=== PATIENT | female | born 1945 | race Hispanic/Latino ===

== ENCOUNTER 2018-07-22 12:42 | Observation (INO) | payer OTHER ==
--- OUTSIDE RECORDS SUMMARY | 2018-07-22 12:44 | XMS REPORT ---
:1945 Author Organization [facility] Address [address] [place] [address] Care Team Providers Name Role Phone Unavailable Unavailable Unavailable Problems This patient has no known problems. Allergies, Adverse Reactions, Alerts This patient has no known allergies or adverse reactions. Medications This patient has no known medications.
[2018-07-22 13:37] LABS: Absolute Lymphocytes (CBC) 1.7 K/uL (0.7-4.9); Absolute Monocytes 0.4 K/uL (0.1-1.3); Absolute Neutrophil 4.8 K/uL (1.8-8.0); Basophils % 0.8 % (0-1.3); Eosinophils % 0.8 % (0-4.4); Hematocrit 37.3 % (36.0-45.0); MPV 8.4 fL (7.6-11.3); Monocytes % 5.7 % (3.3-12.3); RBC Red Blood Cell Count 4.27 M/uL (3.86-4.86)
[2018-07-22 13:43] LABS: ALT/SGPT 21 U/L (12-78); AST/SGOT 13 U/L (15-37); Albumin 3.7 g/dL (3.4-5.0); Alkaline Phosphatase 75 U/L (45-117); BUN Blood Urea Nitrogen 14 mg/dL (7-18); Bicarbonate 27 mmol/L (21-32); Bilirubin Direct 0.2 mg/dL (0-0.2); Bilirubin Total 0.8 mg/dL (0.2-1.0); Glucose Level 378 mg/dL (74-106); Magnesium 1.6 mg/dL (1.8-2.4); NT PRO-BNP 127 pg/mL (<125); Potassium 4.2 mmol/L (3.5-5.1); Protein, Total 7.2 g/dL (6.4-8.2); Sodium Level 135 mmol/L (136-145); Troponin (Emerg Dept Use Only) < 0.02 ng/mL (0.0-0.045)
--- NOTE | 2018-07-22 13:57 | RAD REPORT ---
EXAM DESCRIPTION: RAD - Chest Single View - 07/22/2018 1:39 pm CLINICAL HISTORY: Chest pain COMPARISON: April 2016 TECHNIQUE: AP portable chest image was obtained 1335 hours . FINDINGS: No focal lung parenchymal process. Interstitial markings are mildly prominent but stable. No failure or volume overload. Heart and vasculature are normal. No measurable pleural effusion and n o pneumothorax. No acute bony abnormality seen. No acute aortic findings suspected. IMPRESSION: No acute cardiopulmonary process. No significant change from comparison.
--- NOTE | 2018-07-22 15:05 | RAD REPORT ---
EXAM DESCRIPTION: CT - Chest For Pe Angio - 07/22/2018 2:35 pm CLINICAL HISTORY: Chest pain, shortness of breath COMPARISON: Chest films same date TECHNIQUE: Dynamically enhanced 3 mm thick images of the chest were obtained during administration o f approximately 150mL Isovue 370 IV contrast. Coronal and oblique MIP reconstruction images were gene rated and reviewed. Exam utilizes a protocol to evaluate the pulmonary arterial tree. All CT scans are performed using dose optimization technique as appropriate and may include automated exposure control or mA/KV adjustment according to patient size. FINDINGS: No pulmonary emboli are identified. The aorta as imaged shows no acute or suspicious finding. No pericardial thickening or effusion. No infiltrate or mass in the lung parenchyma. No pleural effusion or pleural thickening. No mediastinal or hilar suspicious masses. No chest wall masses or abnormal axillary lymphadenopathy. IMPRESSION: No pulmonary emboli identified. No other significant or suspicious findings.
[2018-07-22] MEDS ORDERED: ASPIRIN 81 MG CHEWABLE TABLET ONE (16:02)
--- NOTE | 2018-07-22 16:32 | EDPHYS ---
Physician Documentation [facility] Name: Allyssa Shelby Age: 73 yrs Sex: Female : 1945 Arrival Date: 07/22/2018 Time: 12:45 Bed 23 Private MD: Michael Rosales ED Physician Sampson Drake HPI: 07/22 13:05 This 73 yrs old Female presents to ER via Ambulatory with complaints of Chest jmm Pain > 30 y/o. 13:05 The patient or guardian reports chest pain that is located primarily in the anterior jmm aspect of right upper chest and mid-sternal area. Onset: gradually, 2 day(s) ago. The pain radiates to right back. Associated signs and symptoms: Pertinent positives: cough, Pertinent negatives:. The chest pain is described as aching. This is a 73 year old female with a history of dm, hlp, htn that presents to the ED with complaints of right sided chest pain beginning last week which would wax and wane. Patient states the pain has been constant over the past two days. Pain will radiate to the back and the midsternal region. Denies fever or productive cough. . Historical: - Allergies: 12:50 No Known Drug Allergies; tw2 - Home Meds: 12:50 lisinopril 20 mg Oral tab 1 tab once daily [Active]; Humulin 70/30 100 unit/mL (70-30) tw2 Sub-Q susp 40 units per day [Active]; metformin 500 mg Oral tab 1 tab 2 times per day [Active]; aspirin 81 mg Oral chew 1 tab once daily [Active]; - PMHx: 12:50 Diabetes - IDDM; Hyperlipidemia; Hypertension; tw2 - Immunization history:: Adult Immunizations. - Social history:: Smoking status: Patient/guardian denies using tobacco. - Ebola Screening: : Patient denies travel to an Ebola-affected area in the 21 days before illness onset. ROS: 13:05 Constitutional: Negative for fever, chills, and weight loss. jmm 13:05 Respiratory: Negative for shortness of breath, cough, wheezing, and pleuritic chest pain, Abdomen/GI: Negative for abdominal pain, nausea, vomiting, diarrhea, and constipation. 13:05 Cardiovascular: Positive for chest pain. 13:05 All other systems are negative. Exam: 13:05 Constitutional: This is a well developed, well nourished patient who is awake, alert, jmm and in no acute distress. Head/Face: atraumatic. Eyes: EOMI, no conjunctival erythema appreciated ENT: Moist Mucus Membranes Neck: Trachea midline, Supple 13:05 Respiratory: Normal respirations, no respiratory distress appreciated Abdomen/GI: Non distended, soft Back: Normal ROM Skin: General appearance color normal MS/ Extremity: Moves all extremities, no obvious deformities appreciated, no edema noted to the lower extremities Neuro: Awake and alert, normal gait Psych: Behavior is normal, Mood is normal, Patient is cooperative and pleasant 13:05 Chest/axilla: Inspection: normal, Palpation: is normal. 13:05 Cardiovascular: Rate: normal, Rhythm: regular. 13:05 Respiratory: the patient does not display signs of respiratory distress, Respirations: normal, Breath sounds: are clear throughout. Vital Signs: 12:49 BP 133 / 60; Pulse 89; Resp 17; Temp 97.4(TE); Pulse Ox 99% on R/A; Weight 78.93 kg tw2 (R); Height 5 ft. 2 in. (157.48 cm); Pain 6/10; 13:30 BP 136 / 62; Pulse 87; Resp 18; Pulse Ox 100% on R/A; ca1 14:20 BP 139 / 71; Pulse 82; Resp 19; Pulse Ox 100% on R/A; ca1 15:21 BP 147 / 80; Pulse 74; Resp 20; Pulse Ox 100% on R/A; ca1 16:38 BP 161 / 79; Pulse 73; Resp 19; Temp 98.6; Pulse Ox 100% ; lt1 17:42 BP 152 / 69; Pulse 73; Resp 17; Temp 98.5; Pulse Ox 100% ; lt1 18:08 BP 159 / 72; Pulse 70; Resp 18; Pulse Ox 100% on R/A; ca1 12:49 Body Mass Index 31.82 (78.93 kg, 157.48 cm) tw2 MDM: 13:04 Patient medically screened. jmm 16:29 Differential diagnosis: acute myocardial infarction, coronary artery disease chest wall jmm pain, stable angina. The patient was given aspirin in the Emergency Department. Data reviewed: vital signs, lab test result(s), EKG, radiologic studies, CT scan, plain films. Data interpreted: Pulse oximetry: on room air is 100 %. Interpretation: normal. Test interpretation: by ED physician or midlevel provider: ECG. ED course: I discussed the patient with Dr. Goncalves whom accepted admission. . 07/22 12:58 Order name: Basic Metabolic Panel; Complete Time: 13:46 [facility] 07/22 12:58 Order name: CBC with Diff; Complete Time: 14:07 [facility] 07/22 12:58 Order name: LFT's; Complete Time: 13:46 [facility] 07/22 12:58 Order name: Magnesium; Complete Time: 13:46 [facility] 07/22 12:58 Order name: NT PRO-BNP; Complete Time: 13:46 [facility] 07/22 12:58 Order name: PT-INR; Complete Time: 14:07 [facility] 07/22 12:58 Order name: Troponin (emerg Dept Use Only); Complete Time: 13:46 [facility] 07/22 12:58 Order name: XRAY Chest (1 view); Complete Time: 14:07 [facility] 07/22 12:58 Order name: EKG; Complete Time: 12:59 [facility] 07/22 14:16 Order name: Chest For PE Angio CT; Complete Time: 15:29 [facility] 07/22 15:04 Order name: Troponin (emerg Dept Use Only); Complete Time: 15:44 ca1 07/22 17:20 Order name: Echo with Doppler EDVT 07/22 12:58 Order name: Cardiac monitoring; Complete Time: 13:12 [facility] 07/22 12:58 Order name: EKG - Nurse/Tech; Complete Time: 13:12 [facility] 07/22 12:58 Order name: IV Saline Lock; Complete Time: 13:12 [facility] 07/22 12:58 Order name: Labs collected and sent; Complete Time: 13:12 07/22 12:58 Order name: O2 Per Protocol; Complete Time: 13:12 07/22 12:58 Order name: O2 Sat Monitoring; Complete Time: 13:12 [facility] 07/22 16:50 Order name: EKG Electrocardiogram EDMS Administered Medications: 15:50 Drug: Aspirin Chewable Tablet 324 mg Route: PO; ca1 18:09 Follow up: Response: No adverse reaction ca1 16:35 Drug: Magnesium Sulfate 1 grams Route: IVPB; Infused Over: 1 hrs; Site: right ca1 antecubital; 18:09 Follow up: Response: No adverse reaction; IV Status: Completed infusion ca1 Disposition: 07/23 06:55 Co-signature as Attending Physician, Sampson Drake MD I agree with the assessment and kdr plan of care. Disposition: 07/22/18 16:30 Hospitalization ordered by Jelly Goncalves for Observation. Preliminary diagnosis is Chest pain, unspecified. - Bed requested for Telemetry/MedSurg (observation). - Status is Observation. ca1 - Condition is Stable. - Problem is new. - Symptoms have improved. UTI on Admission? No Signatures: Dispatcher [employer] Suzanne Rivera RN RN dw Sampson Drake MD MD kdr Javy Rdz PA PA jmm Wise, Tara RN RN tw2 Ayse Martinez RN RN ca1 Corrections: (The following items were deleted from the chart) 07/22 17:42 16:30 Hospitalization Ordered by Jelly Goncalves MD for Observation. Preliminary dw diagnosis is Chest pain, unspecified. Bed requested for Telemetry/MedSurg (observation). Status is Observation. Condition is Stable. Problem is new. Symptoms have improved. UTI on Admission? No. [facility] 18:24 17:42 07/22/2018 16:30 Hospitalization Ordered by Jelly Goncalves MD for Observation. ca1 Preliminary diagnosis is Chest pain, unspecified. Bed requested for Telemetry/MedSurg (observation). Status is Observation. Condition is Stable. Problem is new. Symptoms have improved. UTI on Admission? No. dw
--- NOTE | 2018-07-22 16:32 | ER ---
Nurse's Notes [facility] Name: Allyssa Shelby Age: 73 yrs Sex: Female : 1945 Arrival Date: 07/22/2018 Time: 12:45 Bed 23 Private MD: Michael Rosales Diagnosis: Chest pain, unspecified Presentation: 07/22 12:48 Presenting complaint: Patient states: i have been getting chest pain and my RIGHT arm tw2 hurts, i when i turn my neck to the left it hurts and i feel a little short of breath. Transition of care: patient was not received from another setting of care. Onset of symptoms was July 22, 2018. Risk Assessment: Do you want to hurt yourself or someone else? Patient reports no desire to harm self or others. Initial Sepsis Screen: Does the patient meet any 2 criteria? No. Patient's initial sepsis screen is negative. Does the patient have a suspected source of infection? No. Patient's initial sepsis screen is negative. Care prior to arrival: None. 12:48 Method Of Arrival: Ambulatory tw2 12:48 Acuity: JANICE 3 tw2 Triage Assessment: 12:50 General: Appears in no apparent distress. well groomed, Behavior is calm, cooperative, tw2 appropriate for age. Pain: Complains of pain in chest. Cardiovascular: Reports chest pain, shortness of breath, since "for a couple of days now". Historical: - Allergies: 12:50 No Known Drug Allergies; tw2 - Home Meds: 12:50 lisinopril 20 mg Oral tab 1 tab once daily [Active]; Humulin 70/30 100 unit/mL (70-30) tw2 Sub-Q susp 40 units per day [Active]; metformin 500 mg Oral tab 1 tab 2 times per day [Active]; aspirin 81 mg Oral chew 1 tab once daily [Active]; - PMHx: 12:50 Diabetes - IDDM; Hyperlipidemia; Hypertension; tw2 - Immunization history:: Adult Immunizations. - Social history:: Smoking status: Patient/guardian denies using tobacco. - Ebola Screening: : Patient denies travel to an Ebola-affected area in the 21 days before illness onset. Screenin:00 Abuse screen: Denies threats or abuse. Denies injuries from another. Nutritional ca1 screening: No deficits noted. Tuberculosis screening: No symptoms or risk factors identified. Fall Risk None identified. Assessment: 13:00 General: Appears in no apparent distress. comfortable, Behavior is calm, cooperative, ca1 appropriate for age. Pain: Complains of pain in mid-sternal area and anterior aspect of right upper chest and chest Pain radiates to Right arm Pain currently is 6 out of 10 on a pain scale. Quality of pain is described as sharp, Pain began about a week. Is intermittent. Neuro: Level of Consciousness is awake, alert, obeys commands, Oriented to person, place, time, situation. Cardiovascular: Heart tones S1 S2 Capillary refill < 3 seconds Patient's skin is warm and dry. Rhythm is sinus rhythm. Respiratory: Airway is patent Respiratory effort is even, unlabored, Respiratory pattern is regular, symmetrical, Breath sounds are clear bilaterally. GI: Abdomen is flat, non-distended, Bowel sounds present X 4 quads. Abd is soft and non tender X 4 quads. Patient currently denies nausea, vomiting. : No signs and/or symptoms were reported regarding the genitourinary system. EENT: No signs and/or symptoms were reported regarding the EENT system. Derm: Skin is intact, Skin is pink, warm \\T\\ dry. Musculoskeletal: Circulation, motion, and sensation intact. 14:00 Reassessment: Patient appears in no apparent distress at this time. Patient and/or ca1 family updated on plan of care and expected duration. Pain level reassessed. Patient is alert, oriented x 3, equal unlabored respirations, skin warm/dry/pink. 15:00 Reassessment: Patient appears in no apparent distress at this time. Patient and/or ca1 family updated on plan of care and expected duration. Pain level reassessed. Patient is alert, oriented x 3, equal unlabored respirations, skin warm/dry/pink. Family at bedside. Repeat EKG done by tech at bedside, Repeat Trop drawn and sent to lab. 16:00 Reassessment: Patient appears in no apparent distress at this time. Patient and/or ca1 family updated on plan of care and expected duration. Pain level reassessed. Patient is alert, oriented x 3, equal unlabored respirations, skin warm/dry/pink. 17:00 Reassessment: Patient appears in no apparent distress at this time. Patient and/or ca1 family updated on plan of care and expected duration. Pain level reassessed. Patient is alert, oriented x 3, equal unlabored respirations, skin warm/dry/pink. 18:08 Reassessment: Patient appears in no apparent distress at this time. Patient and/or ca1 family updated on plan of care and expected duration. Pain level reassessed. Patient is alert, oriented x 3, equal unlabored respirations, skin warm/dry/pink. Vital Signs: 12:49 BP 133 / 60; Pulse 89; Resp 17; Temp 97.4(TE); Pulse Ox 99% on R/A; Weight 78.93 kg tw2 (R); Height 5 ft. 2 in. (157.48 cm); Pain 6/10; 13:30 BP 136 / 62; Pulse 87; Resp 18; Pulse Ox 100% on R/A; ca1 14:20 BP 139 / 71; Pulse 82; Resp 19; Pulse Ox 100% on R/A; ca1 15:21 BP 147 / 80; Pulse 74; Resp 20; Pulse Ox 100% on R/A; ca1 16:38 BP 161 / 79; Pulse 73; Resp 19; Temp 98.6; Pulse Ox 100% ; lt1 17:42 BP 152 / 69; Pulse 73; Resp 17; Temp 98.5; Pulse Ox 100% ; lt1 18:08 BP 159 / 72; Pulse 70; Resp 18; Pulse Ox 100% on R/A; ca1 12:49 Body Mass Index 31.82 (78.93 kg, 157.48 cm) tw2 ED Course: 12:45 Patient arrived in ED. sb2 12:46 Michael Rosales MD is Private Physician. sb2 12:49 Triage completed. tw2 12:51 Arm band placed on. EKG completed in triage. Results shown to MD. tw2 12:56 EKG done, by anesthesia technician. reviewed by Sampson Drake MD. sm3 12:57 [facility] 12:57 Sampson Drake MD is Attending Physician. [facility] 13:00 Ayse Martinez, RN is Primary Nurse. ca1 13:00 Patient has correct armband on for positive identification. Placed in gown. Bed in low ca1 position. Call light in reach. Side rails up X 1. transport tank technician on. Pulse ox on. NIBP on. Warm blanket given. 13:10 Inserted saline lock: 20 gauge in right antecubital area, using aseptic technique. ca1 Blood collected. 13:10 Patient maintains SpO2 saturation greater than 95% on room air. ca1 13:41 X-ray completed. Portable x-ray completed in exam room. Patient tolerated procedure sw well. 13:47 XRAY Chest (1 view) In Process Unspecified. EDMS 14:31 CT completed. Patient tolerated procedure well. Patient moved to CT via wheelchair. Patient moved back from CT. 14:37 Chest For PE Angio CT In Process Unspecified. EDMS 15:12 EKG done, by anesthesia technician. reviewed by Javy RIVERA Repeat EKG. at1 16:30 Jelly Goncalves MD is Hospitalizing Provider. [facility] 17:58 No provider procedures requiring assistance completed. Patient admitted, IV remains in ca1 place. Administered Medications: 15:50 Drug: Aspirin Chewable Tablet 324 mg Route: PO; ca1 18:09 Follow up: Response: No adverse reaction ca1 16:35 Drug: Magnesium Sulfate 1 grams Route: IVPB; Infused Over: 1 hrs; Site: right ca1 antecubital; 18:09 Follow up: Response: No adverse reaction; IV Status: Completed infusion ca1 Outcome: 16:30 Decision to Hospitalize by Provider. janice 18:07 Admitted to Med/surg accompanied by tech, via wheelchair, room 225, with chart, Report ca1 called to Nhung Tate RN 18:07 Condition: stable 18:07 Instructed on the need for admit. 18:24 Patient left the ED. ca1 Signatures: Dispatcher [employer] EDMS Javy Rdz PA PA jmm Jones, Susan sj Gonzales, Amanda, bushel worker EKG Tat1 Mariann Aponte Tara, RN RN tw2 Maranda Gross sb2 Caroline Chisholm sm3 Ayse Martinez, RN RN ca1 Katie Godwin lt1 Corrections: (The following items were deleted from the chart) 13:21 01:00 General: Appears in no apparent distress. comfortable, Behavior is calm, ca1 cooperative, appropriate for age, ca1 13:21 01:00 Pain: Complains of pain in mid-sternal area and anterior aspect of right upper ca1 chest and chest Pain radiates to Right arm Pain currently is 6 out of 10 on a pain scale. Quality of pain is described as sharp, Pain began about a week. Is intermittent, ca1 Neuro: Level of Consciousness is awake, alert, obeys commands, Oriented to ca1 person, place, time, situation, ca1 Cardiovascular: Heart tones S1 S2 Capillary refill < 3 seconds Patient's skin is ca1 warm and dry. Rhythm is sinus rhythm ca1 Respiratory: Airway is patent Respiratory effort is even, unlabored, Respiratory ca1 pattern is regular, symmetrical, Breath sounds are clear bilaterally. ca1 GI: Abdomen is flat, non-distended, Bowel sounds present X 4 quads. Abd is soft ca1 and non tender X 4 quads. Patient currently denies nausea, vomiting, ca1 : No signs and/or symptoms were reported regarding the genitourinary system. ca1ca1 13: EENT: No signs and/or symptoms were reported regarding the EENT system. ca1 ca1 : Derm: Skin is intact, Skin is pink, warm \\T\\ dry. ca1 ca1 13: Musculoskeletal: Circulation, motion, and sensation intact. ca1 ca1 13: Abuse screen: Denies threats or abuse. Denies injuries from another. ca1 ca1 Nutritional screening: No deficits noted. ca1 ca1 13: Tuberculosis screening: No symptoms or risk factors identified. ca1 ca1 13: Fall Risk None identified. ca1 ca1 : Patient has correct armband on for positive identification. Placed in gown. Bed ca1 in low position. Call light in reach. Side rails up X 1. ca1 transport tank technician on. Pulse ox on. NIBP on. ca1 ca1 : Warm blanket given. [place] [id number]
--- NOTE | 2018-07-22 16:55 | EKG ---
Test Date: 2018-07-22 Test Time: 15:02:12 Marine Driller: MAXX MEASUREMENT RESULTS: Intervals: Rate: 70 TN: 150 QRSD: 80 QT: 412 QTc: 444 [place]: P: 33 TN: 150 QRS: -13 T: 0 INTERPRETIVE STATEMENTS: Normal sinus rhythm Minimal voltage criteria for LVH, may be normal variant Possible Anterior infarct, age undetermined Abnormal ECG Compared to ECG 07/22/2018 12:52:48 Atrial flutter no longer present Myocardial infarct finding still present Electronically Signed On 07-22-18 16:54:42 MILITARY PAY CLERK by Jose R Nava
--- NOTE | 2018-07-22 16:57 | EKG ---
Test Date: 2018-07-22 Test Time: 12:52:48 Division Chief: OCHOA MEASUREMENT RESULTS: Intervals: Rate: 86 HI: QRSD: 74 QT: 372 QTc: 445 [place]: P: 33 HI: QRS: -25 T: 0 INTERPRETIVE STATEMENTS: Sinus rhythm Minimal voltage criteria for LVH, may be normal variant Anterolateral infarct, age undetermined Abnormal ECG Compared to ECG 04/10/2016 16:38:54 Myocardial infarct finding now present Electronically Signed On 07-22-18 16:57:04 RN BURN by Jose R Nava
[2018-07-22] MEDS ORDERED: MAGNESIUM SULFATE 1 gm IVPB 1 GM/100 ML BAG IV ONE (17:05)
[2018-07-22] MEDS ORDERED: ACETAMINOPHEN 500 MG TAB PO PRN (18:46)
[2018-07-22] MEDS ORDERED: ONDANSETRON 4 MG/2 ML VIAL IV PRN (18:46)
[2018-07-22] MEDS ORDERED: GLUCAGON 1 MG/VIAL IM PRN (18:58)
[2018-07-22] MEDS ORDERED: D50W 25 GM/50 ML SYRINGE IV PRN (18:58)
[2018-07-22 20:56] VITALS: O2SAT 100
[2018-07-22] MEDS: INSULIN -REGULAR HUMAN 50 UNIT/0.5 ML ML SQ SCH (21:00)
[2018-07-22] MEDS ORDERED: ATORVASTATIN 20 MG TAB PO SCH (21:00)
[2018-07-22] MEDS: ENOXAPARIN 40 MG/0.4 ML SQ SCH (21:08)
[2018-07-22 23:49] VITALS: BMI 31.8
[2018-07-23 05:19] LABS: Absolute Lymphocytes (CBC) 2.5 K/uL (0.7-4.9); Absolute Monocytes 0.5 K/uL (0.1-1.3); Absolute Neutrophil 4.2 K/uL (1.8-8.0); Eosinophils % 1.5 % (0-4.4); Hematocrit 36.8 % (36.0-45.0); MPV 8.6 fL (7.6-11.3); Monocytes % 7.1 % (3.3-12.3); RBC Red Blood Cell Count 4.24 M/uL (3.86-4.86)
[2018-07-23 05:41] LABS: ALT/SGPT 21 U/L (12-78); AST/SGOT 12 U/L (15-37); Albumin 3.5 g/dL (3.4-5.0); Alkaline Phosphatase 74 U/L (45-117); BUN Blood Urea Nitrogen 10 mg/dL (7-18); Bicarbonate 29 mmol/L (21-32); Bilirubin Total 0.6 mg/dL (0.2-1.0); Glucose Level 268 mg/dL (74-106); Phosphorus 2.8 mg/dL (2.5-4.9); Potassium 3.5 mmol/L (3.5-5.1); Protein, Total 6.7 g/dL (6.4-8.2); Sodium Level 138 mmol/L (136-145)
[2018-07-23] MEDS ORDERED: METOPROLOL XL 25 MG TAB PO SCH (06:00)
[2018-07-23 08:28] LABS: Urine Appearance CLEAR; Urine Bilirubin NEGATIVE (NEG); Urine Blood NEGATIVE (NEG); Urine Color YELLOW; Urine Glucose 3+ (NEG); Urine Microscopic Reflex NO UMIC; Urine Protein NEGATIVE (NEG); Urine Specific Gravity >=1.030 (1.005-1.030); Urine Urobilinogen 0.2 mg/dL (0.2-1.0); Urine pH 5.5 (5.0-7.0)
[2018-07-23] MEDS: INSULIN -REGULAR HUMAN 50 UNIT/0.5 ML ML SQ SCH ×3 (08:28→17:22)
[2018-07-23] MEDS: ENOXAPARIN 40 MG/0.4 ML SQ SCH (08:29)
[2018-07-23] MEDS ORDERED: ASPIRIN EC 81 MG TAB PO SCH (09:00)
[2018-07-23] MEDS ORDERED: REGADENOSON 0.4 MG/5 ML SYR IV ONE (09:58)
--- NOTE | 2018-07-23 12:35 | RAD REPORT ---
EXAM DESCRIPTION: NM - Rest Stress Cardiac Imaging - 07/23/2018 11:51 am CLINICAL HISTORY: Chest pain COMPARISON: None. TECHNIQUE: The patient was administered approximately 10 mCi of Tc 99m Sestamibi prior to resting SP ECT imaging of the heart. The patient was then administered approximately 30 mCi of Tc 99m Sestamibi following exercise or pharmacologic stress. Multiplanar SPECT images were reviewed. FINDINGS: The end diastolic volume is 72 ml, the end systolic volume is 34 ml, and the ejection frac tion is 53 %. No stress-induced ischemia identified. No scarred parenchyma suspected. A very minimal decrease in ac tivity is seen along the inferolateral wall unchanged between rest and stress imaging. This is favore d to be diaphragm attenuation artifact. IMPRESSION: No stress-induced ischemia and no scarring confirmed. Ventricular volumes and ejection fraction are normal range.
--- NOTE | 2018-07-23 16:37 | TREADPHA ---
DX: CHEST PAIN Date of Study: 07/23/2018 Ht: 5 2 Wt: 174 lb 0 oz Consulting Physician: MARIA MEDICATIONS: TYLENOL, ASPIRIN, DECTROSE, LOVENOX, NOVOLIN-R, TROPROL XL, LIPITOR, ZOFRAN. HISTORY: 73 YEAR FEMALE. COMPLAINTS OF CHEST PAIN. HISTORY: DIABETES MELLITUS, HYPERTENSION, HYPERLIPIDEMIA, NON-SMOKER, NON-DRINKER. PHYSICIAL EXAMINATION: RESTING B.P.: 149/81 RESTING H.R.: 71 RESTING EKG: SINUS RHYTHM, OLD INFERIOR MYOCARDIAL INFARCTION. PROTOCOL: LEXISCAN EXERCISE TIME: 3:30 B.P. AT [place]AK STRESS: 133/70 IMPRESSION: LEXISCAN INJECTED, FOLLOWED BY CARDIOLITE PER PROTOCOL, SEE NUCLEAR MEDICINE REPORT. NO SUPRAVENTRIULCAR TACHYCARDIA. NO VENTRICULAR TACHYCARDIA. NO PREMATURE ATRIAL COMPLEXS. NO PREMATURE VENTRICULAR COMPLEXS. PATIENT REPORTED NO CHEST PAIN, OR TIGHTNESS THROUGHOUT PROCEDURE, OR IN RECOVERY.
--- NOTE | 2018-07-23 16:49 | ECHO ---
HEIGHT: 5 ft 2 in WEIGHT: 174 lb 0 oz DATE OF STUDY: 07/23/[address]: Jelly Goncalves MD 2-DIMENSIONAL: YES M.MODE: YES DOPPLER: YES COLOR FLOW: YES TDS: PORTABLE: DEFINITY: BUBBLE STUDY: DIAGNOSIS: CHEST PAIN CARDIAC HISTORY: CATHERIZATION: NO SURGERY: NO PROSTHETIC VALVE: NO PACEMAKER: NO MEASUREMENTS (cm) DIASTOLIC (NORMALS) SYSTOLIC (NORMALS) IVSd 1.0 (0.6-1.2) LA Diam 4.1 (1.9-4.0) LVEF 53% LVIDd 4.4 (3.5-5.7) LVIDs 3.2 (2.0-3.5) %FS 27% LVPWd 1.1 (0.6-1.2) Ao Diam 2.6 (2.0-3.7) 2 DIMENSIONAL ASSESSMENT: RIGHT ATRIUM: NORMAL LEFT ATRIUM: DILATED RIGHT VENTRICLE: NORMAL LEFT VENTRICLE: NORMAL TRICUSPID VALVE: NORMAL MITRAL VALVE: MITRAL ANNULAR CALCIFICATION PULMONIC VALVE: NORMAL AORTIC VALVE: NORMAL PERICARDIAL EFFUSION: NONE AORTIC ROOT: NORMAL LEFT VENTRICULAR WALL MOTION: NORMAL DOPPLER/COLOR FLOW: NORMAL COMMENTS: NORMAL LEFT VENTRICULAR SIZE AND FUNCTION. MITRAL ANNULAR CALCIFICATION. LEFT ATRIUM ENLARGEMENT. NO WALL MOTION ABNORMALITY. TECHNOLOGIST: SAMMI DIEHL.
[2018-07-23 17:08] VITALS: BP 142/70; TEMP 97.2
--- NOTE | 2018-07-23 18:25 | P.HP ---
Certification for Inpatient Patient admitted to: Observation With expected LOS: <2 Midnights Patient will require the following post-hospital care: None Practitioner: I am a practitioner with admitting privileges, knowledge of patient current condition, hospital course, and medical plan of care. Services: Services provided to patient in accordance with Admission requirements found in Title 42 Section 412.3 of the Code of Federal Regulations Patient History Date of Service: 07/22/18 Reason for admission: chest pain rule out acute coronary syndrome History of Present Illness: Patient is a 73-year-old female who came to the hospital with chest pain. Pain was mainly the sternal region. There was no radiation. Patient also was short of breath. Patient's workup in the ER was negative with negative troponins and EKG. Patient was admitted from the ER for further evaluation. Allergies No Known Drug Allergies Allergy (Verified 07/22/18 23:50) Unknown Home Medications: Hum Insulin NPH/Reg Insulin Hm [Humulin 70-30 Vial] 40 unit SQ BEDTIME 11/04/11 Hum Insulin NPH/Reg Insulin Hm [Humulin 70-30 Vial] 40 unit SQ INSAM 11/04/11 Lisinopril [Prinivil] 10 mg PO DAILY 11/04/11 Metformin ER [Glucophage ER*] 500 mg PO BID 04/10/16 Clopidogrel Bisulfate [Plavix*] 75 mg PO DAILY #30 tablet 04/12/16 Magnesium Oxide [Mag 0X*] 400 mg PO BID #60 tab 04/12/16 Potassium Chloride [K-Dur] 20 meq PO DAILY #30 tab.er.prt 04/12/16 - Past Medical/Surgical History Has patient received pneumonia vaccine in the past: No Diabetic: Yes -: HTN -: IDDM -: CVA 2009 -: Cholecystectomy -: Hysterectomy -: Back SX 1989 - Family History Brother Medical History: Hypertension - Social History Smoking Status: Never smoker Alcohol use: No CD- Drugs: No Caffeine use: No Place of Residence: Home Review of Systems 10-point ROS is otherwise unremarkable Physical Examination - Vital Signs Temperature: 97.2 F Blood Pressure: 142/70 Pulse: 113 Respirations: 18 Pulse Ox (%): 98 - Physical Exam General: Alert, In no apparent distress, Oriented x3 HEENT: Atraumatic, PERRLA, Mucous membr. moist/pink, EOMI, Sclerae nonicteric Neck: Supple, 2+ carotid pulse no bruit, No LAD, Without JVD or thyroid abnormality Respiratory: Clear to auscultation bilaterally, Normal air movement Cardiovascular: Regular rate/rhythm, Normal S1 S2 Gastrointestinal: Normal bowel sounds, Soft and benign, Non-distended, No tenderness Musculoskeletal: No clubbing, No swelling, No tenderness Integumentary: No rashes Neurological: Normal gait, Normal speech, Normal strength at 5/5 x4 extr, Normal tone, Sensation intact, Cranial nerves 3-12 intact, Normal affect Lymphatics: No axilla or inguinal lymphadenopathy Assessment & Plan - Problems (Diagnosis) (1) Chest pain Current Visit: Yes Status: Acute (2) Essential hypertension Current Visit: No Status: Chronic (3) Type 2 diabetes mellitus Current Visit: No Status: Chronic Qualifiers: Diabetes mellitus half-way insulin use: with tank terminal gauger use Diabetes mellitus complication status: without complication Qualified Code(s): E11.9 - Type 2 diabetes mellitus without complications; Z79.4 - alf (current) use of insulin - Plan 1. Serial troponins and EKG 2. Cardiology consultation 3. Echocardiogram and inpatient stress test(pending cardiology evaluation) 4. Anti-platelet therapy, anti coagulation, beta-truman, statin, and O2 as needed 5. IV morphine for pain 6. Nitro p.r.n. - Advance Directives Does patient have a Living Will: No Does patient have a Durable POA for Healthcare: No
--- NOTE | 2018-07-23 18:34 | P.DS ---
Discharge Date: 07/23/18 Disposition: ROUTINE DISCHARGE Discharge Condition: GOOD Reason for Admission: chest pain rule out acute coronary syndrome - Problems (1) Chest pain Current Visit: Yes Status: Acute (2) Essential hypertension Current Visit: No Status: Chronic (3) Type 2 diabetes mellitus Current Visit: No Status: Chronic Qualifiers: Diabetes mellitus lobsterman insulin use: with lobsterman use Diabetes mellitus complication status: without complication Qualified Code(s): E11.9 - Type 2 diabetes mellitus without complications; Z79.4 - halfway (current) use of insulin Brief History of Present Illness: Patient is a 73-year-old female who came to the hospital with chest pain. Pain was mainly the sternal region. There was no radiation. Patient also was short of breath. Patient's workup in the ER was negative with negative troponins and EKG. Patient was admitted from the ER for further evaluation. Hospital Course: Patient did well during hospital stay. Patient's stress test was negative. Echocardiogram without any abnormality. Patient is stable for discharge home at this time. Vital Signs/Physical Exam: Temp Pulse Resp BP Pulse Ox 97.2 F 113 H 18 142/70 H 98 07/23/18 18:27 07/23/18 18:27 07/23/18 18:27 07/23/18 18:27 07/23/18 18:27 General: Alert, In no apparent distress, Oriented x3 Laboratory Data at Discharge: WBC 7.5 K/uL (4.3-10.9) 07/23/18 04:20 Hgb 12.4 g/dL (12.0-15.0) 07/23/18 04:20 Hct 36.8 % (36.0-45.0) 07/23/18 04:20 Plt Count 279 K/uL (152-406) 07/23/18 04:20 PT 11.8 SECONDS (9.5-12.5) 07/22/18 13:09 INR 1.00 07/22/18 13:09 Sodium 138 mmol/L (136-145) 07/23/18 04:20 Potassium 3.5 mmol/L (3.5-5.1) 07/23/18 04:20 BUN 10 mg/dL (7-18) 07/23/18 04:20 Creatinine 0.58 mg/dL (0.55-1.3) 07/23/18 04:20 Glucose 268 mg/dL (74-106) H 07/23/18 04:20 Phosphorus 2.8 mg/dL (2.5-4.9) 07/23/18 04:20 Magnesium 2.0 mg/dL (1.8-2.4) 07/23/18 04:20 Total Bilirubin 0.6 mg/dL (0.2-1.0) 07/23/18 04:20 AST 12 U/L (15-37) L 07/23/18 04:20 ALT 21 U/L (12-78) 07/23/18 04:20 Alkaline Phosphatase 74 U/L (45-117) 07/23/18 04:20 Troponin I < 0.02 ng/mL (0.0-0.045) 07/23/18 11:58 Home Medications: Hum Insulin NPH/Reg Insulin Hm [Humulin 70-30 Vial] 40 unit SQ BEDTIME 11/04/11 Hum Insulin NPH/Reg Insulin Hm [Humulin 70-30 Vial] 40 unit SQ INSAM 11/04/11 Lisinopril [Prinivil] 10 mg PO DAILY 11/04/11 Metformin ER [Glucophage ER*] 500 mg PO BID 04/10/16 Clopidogrel Bisulfate [Plavix*] 75 mg PO DAILY #30 tablet 04/12/16 Magnesium Oxide [Mag 0X*] 400 mg PO BID #60 tab 04/12/16 Potassium Chloride [K-Dur] 20 meq PO DAILY #30 tab.er.prt 04/12/16 Patient Discharge Instructions: OK TO DC IV AND DC HOME. FOLLOW-UP WITH PRIMARY CARE PROVIDER IN 1-2 WEEKS. FOLLOW-UP WITH CARDIOLOGY IN 1-2 WEEKS. RETURN TO THE ER IF symptoms worsen. CALL DR. MYERS AT [phone] IF ANY QUESTIONS REGARDING HOSPITAL STAY. PLEASE CALL THE FLOOR AT [phone] IF ANY MEDICATION OR NURSING QUESTIONS. Diet: ADA Activity: Fall precautions Time spent managing pt's care (in minutes): 15
== END 2018-07-23 19:51 | disposition home or self-care (01) ==
LOC: ER 12:42 → ERHOLD 17:19 → 2ND 18:07
PROVIDERS: ADMIT Hospitalist; ATTEND Hospitalist
DX: R07.9 Chest pain, unspecified (principal); I10 Essential (primary) hypertension; E11.9 Type 2 diabetes mellitus without complications; Z79.4 Long term (current) use of insulin; Z86.73 Personal history of transient ischemic attack (TIA), and cerebral infarction without residual deficits
CPT/HCPCS: 36415; 71045; 71275; 78452; 80048; 80053; 80076; 81003; 82962 ×4; 83735 ×2; 83880; 84100; 84484 ×5; 85025 ×2; 85610; 93005 ×2; 93017; 93306; 96365; 96366; 99285; A9500; G0378 ×2; J1650 ×2; J2785; J3475; Q9967

== ENCOUNTER 2018-08-09 17:00 | Emergency (ER) | payer OTHER ==
--- OUTSIDE RECORDS SUMMARY | 2018-08-09 17:02 | XMS REPORT ---
:1945 [facility] Address [address] [place] [address] Care Team Providers Name Role Phone Unavailable Unavailable Unavailable Problems This patient has no known problems. Allergies, Adverse Reactions, Alerts This patient has no known allergies or adverse reactions. Medications This patient has no known medications.
[2018-08-09] MEDS ORDERED: MORPHINE 2 MG/ML SYR ONE (17:52)
[2018-08-09 17:56] LABS: Absolute Monocytes 0.6 K/uL (0.1-1.3); Absolute Neutrophil 6.7 K/uL (1.8-8.0); Basophils % 0.8 % (0-1.3); Eosinophils % 0.6 % (0-4.4); Hematocrit 39.2 % (36.0-45.0); Lymphocytes % 21.3 % (15.3-44.8); MPV 8.1 fL (7.6-11.3); Monocytes % 6.2 % (3.3-12.3); RBC Red Blood Cell Count 4.52 M/uL (3.86-4.86)
[2018-08-09 18:05] LABS: Protime INR 0.97
--- NOTE | 2018-08-09 18:05 | RAD REPORT ---
EXAM DESCRIPTION: RAD - Chest Single View - 08/09/2018 5:59 pm CLINICAL HISTORY: CHEST PAIN Chest pain. COMPARISON: Chest Single View dated 07/22/2018; Chest Single View dated 04/10/2016; CHEST SINGLE VIEW dated 11/03/2011; CHEST SINGLE VIEW dated 03/15/2008 FINDINGS: Portable technique limits examination quality. The lungs are grossly clear. The heart is normal in size. No displaced fractures. IMPRESSION: No acute intrathoracic process suspected.
[2018-08-09 18:17] LABS: ALT/SGPT 22 U/L (12-78); AST/SGOT 16 U/L (15-37); Albumin 3.6 g/dL (3.4-5.0); Alkaline Phosphatase 81 U/L (45-117); BUN Blood Urea Nitrogen 9 mg/dL (7-18); Bicarbonate 25 mmol/L (21-32); Bilirubin Direct 0.2 mg/dL (0-0.2); Bilirubin Total 0.6 mg/dL (0.2-1.0); Glucose Level 198 mg/dL (74-106); Magnesium 1.8 mg/dL (1.8-2.4); NT PRO-BNP 198 pg/mL (<125); Potassium 3.9 mmol/L (3.5-5.1); Protein, Total 7.2 g/dL (6.4-8.2); Sodium Level 136 mmol/L (136-145); Troponin (Emerg Dept Use Only) < 0.02 ng/mL (0.0-0.045)
[2018-08-09] MEDS ORDERED: METOPROLOL TAR 25 MG TAB ONE (19:22)
[2018-08-09] MEDS ORDERED: ASPIRIN 81 MG CHEWABLE TABLET ONE (19:22)
--- NOTE | 2018-08-09 20:12 | P.CNS ---
Date of Consult: 08/09/18 Reason for Consult: chest pain Requesting Physician: Ranjeet Waller Primary Care Provider: Dr Rosales Chief Complaint: right shoulder pain History of Present Illness: Ms Shelby is a 73 years old woman with history of DM II, HTN who came to ED complaining of right shoulder pain. The pain started early this morning about 2 AM, comes and go, lasting for a few seconds, about 5/10 of intensity. The pain radiate to right side of the chest. She denied nausea, vomiting, dizziness or palpitations. She has had this recurrent pain in the past several times. At my encounter the patient was pain free, after receive morphine. The patient was admitted to the hospital for similar pain about 2 weeks ago. At that time she had an ECHO which was mostly normal, and a negative stress test. Current trop I is negative, EKG shows nonspecific repolarization changes. Allergies No Known Drug Allergies Allergy (Verified 07/22/18 23:50) Unknown Home medications list reviewed: Yes Home Medications: Hum Insulin NPH/Reg Insulin Hm [Humulin 70-30 Vial] 40 unit SQ BEDTIME 11/04/11 Hum Insulin NPH/Reg Insulin Hm [Humulin 70-30 Vial] 40 unit SQ INSAM 11/04/11 Lisinopril [Prinivil] 10 mg PO DAILY 11/04/11 Metformin ER [Glucophage ER*] 500 mg PO BID 04/10/16 Clopidogrel Bisulfate [Plavix*] 75 mg PO DAILY #30 tablet 04/12/16 Magnesium Oxide [Mag 0X*] 400 mg PO BID #60 tab 04/12/16 Potassium Chloride [K-Dur] 20 meq PO DAILY #30 tab.er.prt 04/12/16 - Past Medical/Surgical History Diabetic: Yes -: HTN -: IDDM -: CVA 2009 -: Cholecystectomy -: Hysterectomy -: Back SX 1989 - Family History Brother Medical History: Hypertension - Social History Smoking Status: Never smoker Alcohol use: No CD- Drugs: No Caffeine use: No Place of Residence: Home Review of Systems 10-point ROS is otherwise unremarkable Physical Examination General: Alert, In no apparent distress HEENT: Atraumatic, PERRLA, Mucous membr. moist/pink, EOMI, Sclerae nonicteric Neck: Supple, 2+ carotid pulse no bruit, No LAD, Without JVD or thyroid abnormality Respiratory: Clear to auscultation bilaterally, Normal air movement Cardiovascular: Regular rate/rhythm, Normal S1 S2 Gastrointestinal: Normal bowel sounds, No tenderness Musculoskeletal: Tenderness (tenderness in the right shoulder to movement.) Integumentary: No rashes Neurological: Normal gait, Normal speech, Normal tone, Normal affect Lymphatics: No axilla or inguinal lymphadenopathy Laboratory Data (last 24 hrs) 08/09/18 17:45: PT 11.5, INR 0.97 08/09/18 17:45: WBC 9.4, Hgb 13.1, Hct 39.2, Plt Count 323 08/09/18 17:45: Sodium 136, Potassium 3.9, BUN 9, Creatinine 0.59, Glucose 198 H , Magnesium 1.8, Total Bilirubin 0.6, AST 16, ALT 22, Alkaline Phosphatase 81 - Problems (1) Atypical chest pain Current Visit: Yes Status: Acute (2) Right shoulder pain Current Visit: Yes Status: Acute Qualifiers: Chronicity: chronic Qualified Code(s): M25.511 - Pain in right shoulder; G89.29 - Other chronic pain (3) Essential hypertension Current Visit: No Status: Chronic (4) Type 2 diabetes mellitus Current Visit: No Status: Chronic Qualifiers: Diabetes mellitus terminal carman insulin use: with terminal carman use Diabetes mellitus complication status: without complication Qualified Code(s): E11.9 - Type 2 diabetes mellitus without complications; Z79.4 - regional intermodal truck driver (current) use of insulin Conclusions/Impression: The patient is complaining of right shoulder pain. I was called to evaluate the patient for possible admission to rule out ACS. This is most likely musculoskeletal pain rather that cardiac related chest pain. The patient has negative cardiac work up done 2 weeks ago. At this point, I do not think that the patient will benefit from an admission. I think she can be discharge home safely and follow up with his PCP to investigate the etiology of her chronic right shoulder pain.
[2018-08-09] MEDS ORDERED: KETOROLAC 30 MG/ML INJ ONE (20:50)
--- NOTE | 2018-08-09 20:59 | ER ---
Nurse's Notes [facility] Name: Allyssa Shelby Age: 73 yrs Sex: Female : 1945 Arrival Date: 08/09/2018 Time: 17:03 Bed 6 Private MD: Michael Rosales Diagnosis: Pain in right shoulder;Other chest pain Presentation: 08/09 17:16 Presenting complaint: Patient states: chest pains radiating to R arm, started last ch night. denies sov, nvd, or cough. pt states her pcp is nighat, and her corporate director is a [place] vic in [place]. states he pain is persistant, at an 8. Transition of care: patient was not received from another setting of care. Onset of symptoms was August 08, 2018 at 17:00. Risk Assessment: Do you want to hurt yourself or someone else? Patient reports no desire to harm self or others. Initial Sepsis Screen: Does the patient meet any 2 criteria? No. Patient's initial sepsis screen is negative. Does the patient have a suspected source of infection? No. Patient's initial sepsis screen is negative. Care prior to arrival: None. 17:16 Method Of Arrival: Wheelchair 17:16 Acuity: JANICE 3 ch Triage Assessment: 17:19 General: Appears in no apparent distress. comfortable, Behavior is calm, cooperative, ch appropriate for age. Pain: Complains of pain in chest and right arm Pain currently is 8 out of 10 on a pain scale. Pain began gradually, 1 day ago. Pain: Quality of pain is described as pressure, sharp, shooting. Neuro: No deficits noted. Cardiovascular: Heart tones S1 S2 present Capillary refill < 3 seconds in bilateral fingers toes Clubbing of nail beds is absent Pulses are all present. Edema is absent. Respiratory: Airway is patent Trachea midline Respiratory effort is even, unlabored, Breath sounds are clear bilaterally. pt c/o pain with inhalation. GI: No signs and/or symptoms were reported involving the gastrointestinal system. : No signs and/or symptoms were reported regarding the genitourinary system. Derm: Skin is pink, warm \T\ dry. Musculoskeletal: No signs and/or symptoms reported regarding the musculoskeletal system. Circulation, motion, and sensation intact. Historical: - Allergies: 17:19 No Known Allergies; ch - Home Meds: 17:19 aspirin 81 mg Oral chew 1 tab once daily [Active]; Humulin 70/30 100 unit/mL (70-30) ch Sub-Q susp 40 units per day [Active]; lisinopril 20 mg Oral tab 1 tab once daily [Active]; metformin 500 mg Oral tab 1 tab 2 times per day [Active]; - PMHx: 17:19 Diabetes - IDDM; Hyperlipidemia; Hypertension; ch - Immunization history:: Adult Immunizations up to date. - Social history:: Smoking status: Patient/guardian denies using tobacco, Patient/guardian denies using alcohol, street drugs, Patient/guardian denies using The patient lives alone, with family. - Ebola Screening: : Patient negative for fever greater than or equal to 101.5 degrees Fahrenheit, and additional compatible Ebola Virus Disease symptoms Patient denies exposure to infectious person Patient denies travel to an Ebola-affected area in the 21 days before illness onset No symptoms or risks identified at this time. - Family history:: not pertinent. Screenin:23 Abuse screen: Denies threats or abuse. Denies injuries from another. Nutritional ch screening: No deficits noted. Tuberculosis screening: No symptoms or risk factors identified. Fall Risk None identified. Assessment: 17:23 Reassessment: Patient appears in no apparent distress at this time. Patient and/or ch family updated on plan of care and expected duration. Pain level reassessed. Patient is alert, oriented x 3, equal unlabored respirations, skin warm/dry/pink. 18:54 Reassessment: Patient appears in no apparent distress at this time. Patient and/or ch family updated on plan of care and expected duration. Pain level reassessed. Patient is alert, oriented x 3, equal unlabored respirations, skin warm/dry/pink. Patient denies pain at this time. Patient states feeling better. Patient states symptoms have improved. Pain: Pain does not radiate. 20:11 Reassessment: Patient appears in no apparent distress at this time. Patient and/or aa1 family updated on plan of care and expected duration. Pain level reassessed. Patient is alert, oriented x 3, equal unlabored respirations, skin warm/dry/pink. Awaiting repeat troponin for possible d/c. Pt resting comfortably, family at bedside Patient denies pain at this time. 21:09 Reassessment: Patient appears in no apparent distress at this time. Patient is alert, aa1 oriented x 3, equal unlabored respirations, skin warm/dry/pink. Discussed d/c \T\ f/u instructions with pt \T\ family; denies questions or concerns at this time. Amb to lobby with steady gait. Patient denies pain at this time. Vital Signs: 17:19 BP 172 / 73; Pulse 72; Resp 16; Temp 97.9; Pulse Ox 100% on R/A; Weight 78.93 kg; ch Height 5 ft. 2 in. (157.48 cm); Pain 8/10; 18:54 BP 165 / 66; Pulse 72; Resp 14; Temp 98.3; Pulse Ox 99% on R/A; Pain 2/10; ch 20:11 BP 177 / 75; Pulse 66; Resp 18; Pulse Ox 100% on R/A; Pain 0/10; aa1 21:09 BP 169 / 89; Pulse 61; Resp 18; Temp 98.1; Pulse Ox 99% on R/A; Pain 0/10; aa1 17:19 Body Mass Index 31.82 (78.93 kg, 157.48 cm) ED Course: 17:03 Patient arrived in ED. mr 17:03 Michael Rosales MD is Private Physician. mr 17:15 Caprice Lopes, RONEN is Primary Nurse. 17:16 Ranjeet Waller PA is PHCP. cp 17:16 Josh Puente MD is Attending Physician. cp 17:17 Triage completed. 17:17 EKG done, by medical laboratory technical officer. reviewed by Osvaldo Hunter MD. 3 17:19 Arm band placed on left wrist. Patient placed in an exam room, on a stretcher, on cardiac exercise specialist, on pulse oximetry. EKG completed in triage. Results shown to MD. 17:20 Inserted saline lock: 20 gauge in right forearm, using aseptic technique. Blood ch collected. Missed attempt(s): 20 gauge in right antecubital area. Bleeding controlled, band aid applied, catheter tip intact. 17:23 No apparent distress. Resting quietly. 17:23 No provider procedures requiring assistance completed. Patient maintains SpO2 saturation greater than 95% on room air. 17:23 Patient has correct armband on for positive identification. Placed in gown. Bed in low ch position. Call light in reach. Side rails up X 1. Adult w/ patient. transportation clerk on. Pulse ox on. NIBP on. Warm blanket given. 17:59 XRAY Chest (1 view) In Process Unspecified. EDMS 20:16 Repeat lab(s) drawn. by me, sent to lab. aa1 20:54 XRAY Shoulder RIGHT 2 view In Process Unspecified. EDMS 20:57 Michael Rosales MD is Referral Physician. cp 21:09 IV discontinued, intact, bleeding controlled, No redness/swelling at site. Pressure aa1 dressing applied. Administered Medications: 17:50 Drug: morphine 2 mg Route: IVP; Site: right forearm; ch 19:00 Follow up: Response: No adverse reaction; Pain is decreased aa1 19:13 Drug: Metoprolol 25 mg Route: PO; ss 20:58 Follow up: Response: No adverse reaction aa1 19:13 Drug: Aspirin Chewable Tablet 162 mg Route: PO; ss 20:58 Follow up: Response: No adverse reaction aa1 20:41 Drug: TORadol 15 mg Route: IVP; Site: right forearm; aa1 21:08 Follow up: Response: No adverse reaction; Pain is decreased aa1 21:09 Not Given (Patient Refused): Zofran 4 mg IVP once; over 2 minutes aa1 Outcome: 20:58 Discharge ordered by MD. cp 21:09 Discharged to home ambulatory, with family. aa1 21:09 Condition: good 21:09 Discharge instructions given to patient, family, Instructed on discharge instructions, follow up and referral plans. medication usage, Demonstrated understanding of instructions, follow-up care, medications, Prescriptions given X 2. 21:11 Patient left the ED. aa1 Signatures: Dispatcher [employer] EDMS Caprice Lopes RN RN [place] RN RN aa1 Joycelyn Contreras Shelby, RN RN ss Ranjeet Waller PA PA cp Alzahri, Mohammad, MD MD wa2 Caroline Chisholm 3
--- NOTE | 2018-08-09 20:59 | EDPHYS ---
Physician Documentation [facility] Name: Allyssa Shelby Age: 73 yrs Sex: Female : 1945 Arrival Date: 08/09/2018 Time: 17:03 Bed 6 Private MD: Michael Rosales ED Physician Josh Puente HPI: 08/09 17:22 This 73 yrs old Female presents to ER via Wheelchair with complaints of Chest ma2 Pain. 17:22 The patient or guardian reports chest pain that is located primarily in the substernal ma2 area. Onset: gradually, 3 day(s) ago. Associated signs and symptoms: Pertinent negatives: abdominal pain, diaphoresis, headache, nausea, shortness of breath, syncope. The chest pain is described as burning. Duration: The patient or guardian reports multiple episodes. Severity of pain: At its worst the pain was moderate in the emergency department the pain is unchanged. The patient has experienced similar episodes in the past. Historical: - Allergies: 17:19 No Known Allergies; ch - Home Meds: 17:19 aspirin 81 mg Oral chew 1 tab once daily [Active]; Humulin 70/30 100 unit/mL (70-30) ch Sub-Q susp 40 units per day [Active]; lisinopril 20 mg Oral tab 1 tab once daily [Active]; metformin 500 mg Oral tab 1 tab 2 times per day [Active]; - PMHx: 17:19 Diabetes - IDDM; Hyperlipidemia; Hypertension; ch - Immunization history:: Adult Immunizations up to date. - Social history:: Smoking status: Patient/guardian denies using tobacco, Patient/guardian denies using alcohol, street drugs, Patient/guardian denies using The patient lives alone, with family. - Ebola Screening: : Patient negative for fever greater than or equal to 101.5 degrees Fahrenheit, and additional compatible Ebola Virus Disease symptoms Patient denies exposure to infectious person Patient denies travel to an Ebola-affected area in the 21 days before illness onset No symptoms or risks identified at this time. - Family history:: not pertinent. ROS: 17:22 Constitutional: Negative for fever, chills, and weight loss. ma2 17:22 Cardiovascular: Positive for chest pain, Negative for orthopnea, paroxysmal nocturnal dyspnea. 17:22 All other systems are negative. Exam: 17:22 Constitutional: This is a well developed, well nourished patient who is awake, alert, ma2 and in no acute distress. Neck: Trachea midline, no thyromegaly or masses palpated, and no cervical lymphadenopathy. Supple, full range of motion without nuchal rigidity, or vertebral point tenderness. No Meningismus. Cardiovascular: Regular rate and rhythm with a normal S1 and S2. No gallops, murmurs, or rubs. Normal PMI, no JVD. No pulse deficits. Respiratory: Lungs have equal breath sounds bilaterally, clear to auscultation and percussion. No rales, rhonchi or wheezes noted. No increased work of breathing, no retractions or nasal flaring. 17:22 MS/ Extremity: Pulses equal, no cyanosis. Neurovascular intact. Full, normal range of motion. Neuro: Awake and alert, GCS 15, oriented to person, place, time, and situation. Cranial nerves II-XII grossly intact. Motor strength 5/5 in all extremities. Sensory grossly intact. Cerebellar exam normal. Normal gait. 17:22 Chest/axilla: Inspection: normal, Palpation: tenderness, that is moderate, of the anterior aspect of right upper chest and right breast, Axilla: are normal, Breasts: are normal. 17:25 ECG was reviewed by the Attending Physician. cp 17:25 Respiratory: the patient does not display signs of respiratory distress, Respirations: normal, no use of accessory muscles, no retractions, no splinting, no tachypnea, labored breathing, is not present, Breath sounds: are clear throughout, no decreased breath sounds, no stridor, no wheezing. 17:25 Abdomen/GI: Inspection: abdomen appears normal. cp 17:25 Skin: cellulitis, is not appreciated, no rash present. 20:30 ECG was reviewed by the Attending Physician. cp 20:45 Musculoskeletal/extremity: Extremities: grossly normal except: noted in the right cp shoulder: pain, tenderness, painful ROM, There is no evidence of decreased ROM, deformity, Perfusion: the extremity is normally perfused throughout, Sensation intact. Vital Signs: 17:19 BP 172 / 73; Pulse 72; Resp 16; Temp 97.9; Pulse Ox 100% on R/A; Weight 78.93 kg; ch Height 5 ft. 2 in. (157.48 cm); Pain 8/10; 18:54 BP 165 / 66; Pulse 72; Resp 14; Temp 98.3; Pulse Ox 99% on R/A; Pain 2/10; ch 20:11 BP 177 / 75; Pulse 66; Resp 18; Pulse Ox 100% on R/A; Pain 0/10; aa1 21:09 BP 169 / 89; Pulse 61; Resp 18; Temp 98.1; Pulse Ox 99% on R/A; Pain 0/10; aa1 17:19 Body Mass Index 31.82 (78.93 kg, 157.48 cm) MDM: 17:16 Patient medically screened. cp 17:22 Differential diagnosis: chest wall pain, gastroesophageal reflux disease (GERD), ma2 pericarditis, pneumonia, stable angina. 17:24 ED course: ekg 1 mm elevations on anterior leads no reciprocal . ma2 18:00 Differential diagnosis: acute VT, angina, bursitis of shoulder. cp 20:57 Data reviewed: vital signs, nurses notes, lab test result(s), EKG, radiologic studies, cp plain films. 20:57 Test interpretation: by ED physician or midlevel provider: plain radiologic studies. cp Counseling: I had a detailed discussion with the patient and/or guardian regarding: the historical points, exam findings, and any diagnostic results supporting the discharge/admit diagnosis, lab results, radiology results, the need for outpatient follow up, a family practitioner, to return to the emergency department if symptoms worsen or persist or if there are any questions or concerns that arise at home. Response to treatment: the patient's symptoms have markedly improved after treatment, and as a result, I will discharge patient. 08/09 17:39 Order name: Basic Metabolic Panel; Complete Time: 18:27 ss 08/09 18:27 Interpretation: Normal except: GLUC 198. cp 08/09 17:39 Order name: CBC with Diff; Complete Time: 18:27 ss 08/09 18:28 Interpretation: Reviewed. 08/09 17:39 Order name: LFT's; Complete Time: 18:27 ss 08/09 18:28 Interpretation: Normal except: GLOB 3.6; A/G 1.0. cp 08/09 17:39 Order name: Magnesium; Complete Time: 18:27 ss 08/09 17:39 Order name: NT PRO-BNP; Complete Time: 18:27 ss 08/09 17:39 Order name: PT-INR; Complete Time: 18:27 ss 08/09 17:39 Order name: Troponin (emerg Dept Use Only); Complete Time: 18:27 ss 08/09 17:39 Order name: XRAY Chest (1 view); Complete Time: 18:27 ss 08/09 18:28 Interpretation: Report review. cp 08/09 20:03 Order name: Troponin I; Complete Time: 20:44 cp 08/09 20:28 Order name: XRAY Shoulder RIGHT 2 view cp 08/09 17:39 Order name: EKG; Complete Time: 17:40 ss 08/09 17:39 Order name: Cardiac monitoring; Complete Time: 18:55 ss 08/09 17:39 Order name: EKG - Nurse/Tech; Complete Time: 18:56 ss 08/09 17:39 Order name: IV Saline Lock; Complete Time: 18:56 ss 08/09 17:39 Order name: Labs collected and sent; Complete Time: 18:56 ss 08/09 17:39 Order name: O2 Per Protocol; Complete Time: 18:56 ss 08/09 17:39 Order name: O2 Sat Monitoring; Complete Time: 18:56 ss 08/09 20:03 Order name: EKG; Complete Time: 20:03 cp 08/09 20:03 Order name: EKG - Nurse/Tech; Complete Time: 20:19 cp EC:52 Rate is 74 beats/min. Rhythm is regular. IN interval is normal. QRS interval is normal. cp QT interval is normal. Interpreted by me. Reviewed by me. 20:30 Rate is 64 beats/min. Rhythm is regular. IN interval is normal. QRS interval is normal. cp QT interval is normal. Interpreted by me. Reviewed by me. Administered Medications: 17:50 Drug: morphine 2 mg Route: IVP; Site: right forearm; ch 19:00 Follow up: Response: No adverse reaction; Pain is decreased aa1 19:13 Drug: Metoprolol 25 mg Route: PO; ss 20:58 Follow up: Response: No adverse reaction aa1 19:13 Drug: Aspirin Chewable Tablet 162 mg Route: PO; ss 20:58 Follow up: Response: No adverse reaction aa1 20:41 Drug: TORadol 15 mg Route: IVP; Site: right forearm; aa1 21:08 Follow up: Response: No adverse reaction; Pain is decreased aa1 21:09 Not Given (Patient Refused): Zofran 4 mg IVP once; over 2 minutes aa1 Disposition: 08/09/18 20:58 Discharged to Home. Impression: Pain in right shoulder, Other chest pain. - Condition is Stable. - Discharge Instructions: Nonspecific Chest Pain, Shoulder Pain, Aspirin and Your Heart. - Prescriptions for Mobic 7.5 mg Oral Tablet - take 1 tablet by ORAL route once daily take with food; 20 tablet. Tramadol 50 mg Oral Tablet - take 1 tablet by ORAL route every 8 hours as needed; 15 tablet. - Medication Reconciliation Form, Thank You Letter, Antibiotic Education, Prescription Opioid Use form. - Follow up: Michael Rosales MD; When: 2 - 3 days; Reason: Recheck today's complaints. - Problem is new. - Symptoms have improved. Signatures: Dispatcher [employer] EDMS Caprice Lopes RN RN [place] RN RN aa1 Sheyla Vital RN RN ss Ranjeet Waller PA PA cp Osvaldo Hunter MD MD ma2 Corrections: (The following items were deleted from the chart) 21:11 20:58 08/09/2018 20:58 Discharged to Home. Impression: Pain in right shoulder; Other aa1 chest pain. Condition is Stable. Forms are Medication Reconciliation Form, Thank You Letter, Antibiotic Education, Prescription Opioid Use. Follow up: Michael Rosales; When: 2 - 3 days; Reason: Recheck today's complaints. Problem is new. Symptoms have improved. cp
--- NOTE | 2018-08-09 21:03 | RAD REPORT ---
EXAM DESCRIPTION: RAD - Shoulder Right 2 View - 08/09/2018 8:54 pm CLINICAL HISTORY: PAIN COMPARISON: No comparisons FINDINGS: AC joint and glenohumeral joint arthritic changes are present. No acute fracture or disloc ation seen. No aggressive marrow lesion.
[2018-08-09 21:25] VITALS: BP 169/89; TEMP 98.1; O2SAT 99
--- NOTE | 2018-08-10 06:45 | EKG ---
Test Date: 2018-08-09 Test Time: 17:14:06 Television News Video Editor: OCHOA MEASUREMENT RESULTS: Intervals: Rate: 74 CO: 142 QRSD: 74 QT: 414 QTc: 459 [place]: P: 47 CO: 142 QRS: -20 T: 57 INTERPRETIVE STATEMENTS: Normal sinus rhythm Cannot rule out Anterior infarct, age undetermined Abnormal ECG Compared to ECG 07/22/2018 15:02:12 Left ventricular hypertrophy no longer present Myocardial infarct finding still present Electronically Signed On 08-10-18 06:45:18 ABRADING MACHINE TENDER by Jose R Nava
--- NOTE | 2018-08-10 10:31 | EKG ---
Test Date: 2018-08-09 Test Time: 20:23:44 Dietetics Director: JEFFRY MEASUREMENT RESULTS: Intervals: Rate: 64 NV: 158 QRSD: 80 QT: 436 QTc: 449 [place]: P: 20 NV: 158 QRS: -19 T: 29 INTERPRETIVE STATEMENTS: Normal sinus rhythm Possible Anterior infarct, age undetermined Abnormal ECG Compared to ECG 08/09/2018 17:14:06 No significant changes Electronically Signed On 08-10-18 10:29:25 MEDICAL APPOINTMENT CLERK by Sukhwinder Lamar
== END 2018-08-09 21:11 | disposition home or self-care (01) ==
LOC: ER 17:00
DX: R07.9 Chest pain, unspecified (principal); M25.511 Pain in right shoulder; E11.9 Type 2 diabetes mellitus without complications; Z79.82 Long term (current) use of aspirin; Z79.4 Long term (current) use of insulin
CPT/HCPCS: 93005 ×2; 85025; 80048; 36415; 83735; 85610; 80076; 84484 ×2; 83880; 71045; 73030; J2270

== ENCOUNTER 2018-08-23 15:17 | Observation (INO) | payer OTHER ==
--- OUTSIDE RECORDS SUMMARY | 2018-08-23 15:20 | XMS REPORT ---
:1945 [facility] Address [address] [place] [address] [address] [place] [address] Care Team Providers Name Role Phone Unavailable Unavailable Unavailable Problems This patient has no known problems. Allergies, Adverse Reactions, Alerts This patient has no known allergies or adverse reactions. Medications This patient has no known medications.
--- NOTE | 2018-08-23 16:08 | ER ---
Nurse's Notes [facility] Name: Allyssa Shelby Age: 73 yrs Sex: Female : 1945 Arrival Date: 08/23/2018 Time: 15:18 Bed 13 Private MD: Michael Rosales Diagnosis: Other chest pain;Pain in right upper arm;Type 1 diabetes mellitus;Hypomagnesemia;Radiculopathy, cervical region;Spondylolysis, cervical region Presentation: 08/23 15:28 Presenting complaint: Right sided chest pain that radiates to right arm and SOB x 2 hb days. Transition of care: patient was not received from another setting of care. Onset of symptoms was August 22, 2018. Risk Assessment: Do you want to hurt yourself or someone else? Patient reports no desire to harm self or others. Care prior to arrival: None. 15:28 Method Of Arrival: Ambulatory hb 15:28 Acuity: JANICE 3 hb Historical: - Allergies: 15:29 No Known Allergies; hb - Home Meds: 15:29 aspirin 81 mg Oral chew 1 tab once daily [Active]; Humulin 70/30 100 unit/mL (70-30) hb Sub-Q susp 40 units per day [Active]; lisinopril 20 mg Oral tab 1 tab once daily [Active]; metformin 500 mg Oral tab 1 tab 2 times per day [Active]; - PMHx: 15:29 Diabetes - IDDM; Hyperlipidemia; Hypertension; hb - Immunization history:: Adult Immunizations up to date. - Social history:: Smoking status: Patient/guardian denies using tobacco. - Ebola Screening: : No symptoms or risks identified at this time. - Family history:: not pertinent. Screenin:40 Abuse screen: Denies threats or abuse. Denies injuries from another. Nutritional sg screening: No deficits noted. Tuberculosis screening: No symptoms or risk factors identified. Never had TB. Fall Risk None identified. Assessment: 16:42 General: Appears in no apparent distress. comfortable, well groomed, well developed, sg well nourished, Behavior is calm, cooperative, appropriate for age. Pain: Complains of pain in chest and right arm Quality of pain is described as aching. Neuro: Level of Consciousness is awake, alert, obeys commands, Oriented to person, place, time, situation, Airport Clerk are equal bilaterally Moves all extremities. Gait is steady, Speech is normal, Facial symmetry appears normal, Pupils are PERRLA. Cardiovascular: Heart tones S1 S2 present Capillary refill is brisk in bilateral fingers Patient's skin is warm and dry. Chest pain quality is pressure, is located in anterior substernal area. Respiratory: Airway is patent Respiratory effort is even, unlabored, Respiratory pattern is regular, symmetrical. GI: Abdomen is round non-distended, Reports normal bowel habits, tolerance of fluids, tolerance of food. : No signs and/or symptoms were reported regarding the genitourinary system. Derm: Skin is normal. Musculoskeletal: No signs and/or symptoms reported regarding the musculoskeletal system. 17:50 Reassessment: Patient appears in no apparent distress at this time. Patient is alert, sg oriented x 3, equal unlabored respirations, skin warm/dry/pink. 18:50 Reassessment: Patient appears in no apparent distress at this time. Patient is alert, sg oriented x 3, equal unlabored respirations, skin warm/dry/pink. Patient states feeling better. Patient states symptoms have improved. 19:20 Reassessment: Patient appears in no apparent distress at this time. Patient and/or jb4 family updated on plan of care and expected duration. Pain level reassessed. Patient is alert, oriented x 3, equal unlabored respirations, skin warm/dry/pink. Patient states feeling better. Vital Signs: 15:28 BP 115 / 56; Pulse 78; Resp 16; Temp 98.8; Pulse Ox 100% on R/A; Pain 5/10; hb 17:46 BP 135 / 56; Pulse 77; Resp 17; Pulse Ox 100% on R/A; Pain 7/10; sg 17:46 Weight 74.39 kg; sg 19:00 BP 135 / 58; Pulse 69; Resp 16; Pulse Ox 100% on R/A; jb4 20:00 BP 165 / 73; Pulse 69; Resp 16; Pulse Ox 98% on R/A; jb4 ED Course: 15:18 Patient arrived in ED. as 15:18 Michael Rosales MD is Private Physician. as 15:28 Triage completed. hb 15:29 Arm band placed on. hb 15:38 Ranjeet Hester MD is Attending Physician. lucio 15:57 EKG done, by digital camera technician. reviewed by Ranjeet Hester MD. sm3 16:05 Missed attempt(s): 22 gauge in left antecubital area. Bleeding controlled, band aid dh3 applied, catheter tip intact. 16:06 Franklin Huston MD is Hospitalizing Provider. [facility] 16:07 Initial lab(s) drawn, by ky, sent to lab. Inserted saline lock: 22 gauge in left dh3 forearm, using aseptic technique. Blood collected. 16:29 C Spine Wo Cont In Process Unspecified. EDMS 16:45 No provider procedures requiring assistance completed. Patient maintains SpO2 sg saturation greater than 95% on room air. 16:58 XRAY Chest (1 view) In Process Unspecified. EDMS 16:58 C Spine Ap/Lat XRAY In Process Unspecified. EDMS 16:58 Shoulder Right (2 View) XRAY In Process Unspecified. EDMS 17:36 Michael Elliott RN is Primary Nurse. sg 19:00 Patient has correct armband on for positive identification. Placed in gown. Bed in low jb4 position. Call light in reach. Side rails up X 1. ceo na on. Pulse ox on. NIBP on. Administered Medications: 16:45 Drug: Aspirin 162 mg Route: PO; sg 18:20 Follow up: Response: No adverse reaction sg 17:30 Drug: NS 0.9% 1000 ml Route: IV; Rate: 125 ml/hr; Site: left wrist; sg 17:30 Drug: morphine 2 mg Route: IVP; Site: left wrist; sg 18:20 Follow up: Response: No adverse reaction; Pain is decreased sg 17:30 Drug: Zofran 4 mg Route: IVP; Site: left wrist; sg 18:20 Follow up: Response: No adverse reaction; Nausea is decreased sg 17:40 Drug: Magnesium Sulfate 1 grams Route: IVPB; Infused Over: 1 hrs; Site: left wrist; sg 18:42 Follow up: IV Status: Completed infusion sg 19:34 Drug: Lovenox 1 mg/kg Route: Sub-Q; Site: left lower abdomen; jb4 20:15 Follow up: Response: No adverse reaction jb4 20:15 Not Given (Duplicate Order): morphine 2 mg IVP once jb4 Outcome: 16:07 Decision to Hospitalize by Provider. lucio 19:58 Admitted to [facility] accompanied by francine, room 406, with chart, Report called to RONEN Akins 19:58 Condition: stable 19:58 Discharge instructions given to patient, Instructed on the need for admit, Demonstrated understanding of instructions. 20:17 Patient left the ED. jb4 Signatures: Dispatcher [employer] EDMichael Cotton RN RN sg Anderson, Corey, MD MD cha Martinez, Amelia as Baxter, Heather, RN RN hb Bryson, James, RN RN jb4 Marleen Gilmore [facility] Caroline Chisholm [facility]
--- NOTE | 2018-08-23 16:08 | EDPHYS ---
Physician Documentation [facility] Name: Allyssa Shelby Age: 73 yrs Sex: Female : 1945 Arrival Date: 08/23/2018 Time: 15:18 Bed 13 Private MD: Michael Rosales ED Physician Ranjeet Hester HPI: 08/23 15:48 This 73 yrs old Female presents to ER via Ambulatory with complaints of Chest lucio Pain, Arm Pain. 15:48 The patient or guardian reports chest pain that is located primarily in the anterior lucio chest wall, right. Onset: 5 day(s) ago. The pain does not radiate. Associated signs and symptoms: Pertinent positives: diaphoresis, shortness of breath. The chest pain is described as a pressure. Modifying factors: The symptoms are alleviated by remaining still. Severity of pain: At its worst the pain was mild moderate in the emergency department the pain has improved mildly. The patient has experienced similar episodes in the past, several times. Historical: - Allergies: 15:29 No Known Allergies; hb - Home Meds: 15:29 aspirin 81 mg Oral chew 1 tab once daily [Active]; Humulin 70/30 100 unit/mL (70-30) hb Sub-Q susp 40 units per day [Active]; lisinopril 20 mg Oral tab 1 tab once daily [Active]; metformin 500 mg Oral tab 1 tab 2 times per day [Active]; - PMHx: 15:29 Diabetes - IDDM; Hyperlipidemia; Hypertension; hb - Immunization history:: Adult Immunizations up to date. - Social history:: Smoking status: Patient/guardian denies using tobacco. - Ebola Screening: : No symptoms or risks identified at this time. - Family history:: not pertinent. ROS: 15:48 Constitutional: Negative for fever, chills, and weight loss, Eyes: Negative for injury, lucio pain, redness, and discharge, ENT: Negative for injury, pain, and discharge, Neck: Negative for injury, pain, and swelling, Cardiovascular: Negative for chest pain, palpitations, and edema, Respiratory: Negative for shortness of breath, cough, wheezing, and pleuritic chest pain, Abdomen/GI: Negative for abdominal pain, nausea, vomiting, diarrhea, and constipation, Back: Negative for injury and pain, : Negative for injury, bleeding, discharge, and swelling, MS/Extremity: Negative for injury and deformity, Skin: Negative for injury, rash, and discoloration, Neuro: Negative for headache, weakness, numbness, tingling, and seizure, Psych: Negative for depression, anxiety, suicide ideation, homicidal ideation, and hallucinations, Allergy/Immunology: Negative for hives, rash, and allergies, Endocrine: Negative for neck swelling, polydipsia, polyuria, polyphagia, and marked weight changes, Hematologic/Lymphatic: Negative for swollen nodes, abnormal bleeding, and unusual bruising. Exam: 15:48 Constitutional: This is a well developed, well nourished patient who is awake, alert, lucio and in no acute distress. Head/Face: Normocephalic, atraumatic. Eyes: Pupils equal round and reactive to light, extra-ocular motions intact. Lids and lashes normal. Conjunctiva and sclera are non-icteric and not injected. Cornea within normal limits. Periorbital areas with no swelling, redness, or edema. ENT: Nares patent. No nasal discharge, no septal abnormalities noted. Tympanic membranes are normal and external auditory canals are clear. Oropharynx with no redness, swelling, or masses, exudates, or evidence of obstruction, uvula midline. Mucous membranes moist. Neck: Trachea midline, no thyromegaly or masses palpated, and no cervical lymphadenopathy. Supple, full range of motion without nuchal rigidity, or vertebral point tenderness. No Meningismus. Chest/axilla: Normal chest wall appearance and motion. Nontender with no deformity. No lesions are appreciated. Cardiovascular: Regular rate and rhythm with a normal S1 and S2. No gallops, murmurs, or rubs. Normal PMI, no JVD. No pulse deficits. Respiratory: Lungs have equal breath sounds bilaterally, clear to auscultation and percussion. No rales, rhonchi or wheezes noted. No increased work of breathing, no retractions or nasal flaring. Abdomen/GI: Soft, non-tender, with normal bowel sounds. No distension or tympany. No guarding or rebound. No evidence of tenderness throughout. Back: No spinal tenderness. No costovertebral tenderness. Full range of motion. Skin: Warm, dry with normal turgor. Normal color with no rashes, no lesions, and no evidence of cellulitis. MS/ Extremity: Pulses equal, no cyanosis. Neurovascular intact. Full, normal range of motion. Neuro: Awake and alert, GCS 15, oriented to person, place, time, and situation. Cranial nerves II-XII grossly intact. Motor strength 5/5 in all extremities. Sensory grossly intact. Cerebellar exam normal. Normal gait. Psych: Awake, alert, with orientation to person, place and time. Behavior, mood, and affect are within normal limits. 16:06 Musculoskeletal/extremity: DVT Exam: No signs of deep vein thrombosis. no pain, no lucio swelling, no tenderness, negative Homans' sign noted on exam, no appreciated bluish discoloration, no erythema, no increased warmth. Vital Signs: 15:28 BP 115 / 56; Pulse 78; Resp 16; Temp 98.8; Pulse Ox 100% on R/A; Pain 5/10; hb 17:46 BP 135 / 56; Pulse 77; Resp 17; Pulse Ox 100% on R/A; Pain 7/10; sg 17:46 Weight 74.39 kg; sg 19:00 BP 135 / 58; Pulse 69; Resp 16; Pulse Ox 100% on R/A; jb4 20:00 BP 165 / 73; Pulse 69; Resp 16; Pulse Ox 98% on R/A; jb4 MDM: 15:38 Patient medically screened. [facility] 15:50 Data reviewed: vital signs, nurses notes, lab test result(s), EKG, radiologic studies, [facility] MRI, plain films. 08/23 15:48 Order name: Basic Metabolic Panel; Complete Time: 16:58 [facility] 08/23 15:48 Order name: CBC with Diff; Complete Time: 16:58 [facility] 08/23 15:48 Order name: LFT's; Complete Time: 16:58 [facility] 08/23 15:48 Order name: Magnesium; Complete Time: 16:58 [facility] 08/23 15:48 Order name: NT PRO-BNP; Complete Time: 16:58 [facility] 08/23 15:48 Order name: PT-INR; Complete Time: 16:58 [facility] 08/23 15:48 Order name: Troponin (emerg Dept Use Only); Complete Time: 16:58 [facility] 08/23 15:48 Order name: XRAY Chest (1 view); Complete Time: 17:27 [facility] 08/23 15:48 Order name: C Spine Ap/Lat XRAY; Complete Time: 19:59 lucio 08/23 15:48 Order name: Shoulder Right (2 View) XRAY; Complete Time: 19:59 lucio 08/23 15:54 Order name: C Spine Wo Cont; Complete Time: 17:27 EDMS 08/23 15:34 Order name: EKG; Complete Time: 15:35 hb 08/23 15:34 Order name: EKG - Nurse/Tech; Complete Time: 15:34 hb 08/23 15:48 Order name: Cardiac monitoring; Complete Time: 16:15 lucio 08/23 15:48 Order name: IV Saline Lock; Complete Time: 16:15 lucio 08/23 15:48 Order name: Labs collected and sent; Complete Time: 16:16 lucio 08/23 15:48 Order name: O2 Per Protocol; Complete Time: 16:16 lucio 08/23 15:48 Order name: O2 Sat Monitoring; Complete Time: 16:16 lucio Administered Medications: 16:45 Drug: Aspirin 162 mg Route: PO; sg 18:20 Follow up: Response: No adverse reaction sg 17:30 Drug: NS 0.9% 1000 ml Route: IV; Rate: 125 ml/hr; Site: left wrist; sg 17:30 Drug: morphine 2 mg Route: IVP; Site: left wrist; sg 18:20 Follow up: Response: No adverse reaction; Pain is decreased sg 17:30 Drug: Zofran 4 mg Route: IVP; Site: left wrist; sg 18:20 Follow up: Response: No adverse reaction; Nausea is decreased sg 17:40 Drug: Magnesium Sulfate 1 grams Route: IVPB; Infused Over: 1 hrs; Site: left wrist; sg 18:42 Follow up: IV Status: Completed infusion sg 19:34 Drug: Lovenox 1 mg/kg Route: Sub-Q; Site: left lower abdomen; jb4 20:15 Follow up: Response: No adverse reaction jb4 20:15 Not Given (Duplicate Order): morphine 2 mg IVP once jb4 Disposition: 08/23/18 16:07 Hospitalization ordered by Franklin Huston for Observation. Preliminary diagnosis are Other chest pain, Pain in right upper arm, Type 1 diabetes mellitus, Hypomagnesemia, Radiculopathy, cervical region, Spondylolysis, cervical region. - Bed requested for Telemetry/MedSurg (observation). - Status is Observation. jb4 - Condition is Fair. - Problem is new. - Symptoms have improved. UTI on Admission? No Signatures: Dispatcher [employer] EDSuzanne Real, RN Michael Ayon, Ranjeet Che RN, MD MD cha Baxter, Heather, RN Janusz Newman RN RN jb4 Corrections: (The following items were deleted from the chart) 16:08 16:07 Hospitalization Ordered by Franklin Huston MD for Observation. Preliminary diagnosis lucio is Other chest pain; Pain in right upper arm. Bed requested for Telemetry/MedSurg (observation). Status is Observation. Condition is Fair. Problem is new. Symptoms have improved. UTI on Admission? No. lucio 17:01 16:08 08/23/2018 16:07 Hospitalization Ordered by Franklin Huston MD for Observation. lucio Preliminary diagnosis is Other chest pain; Pain in right upper arm; Type 1 diabetes mellitus. Bed requested for Telemetry/MedSurg (observation). Status is Observation. Condition is Fair. Problem is new. Symptoms have improved. UTI on Admission? No. lucio 18:38 17:01 08/23/2018 16:07 Hospitalization Ordered by Franklin Huston MD for Observation. dw Preliminary diagnosis is Other chest pain; Pain in right upper arm; Type 1 diabetes mellitus; Hypomagnesemia; Radiculopathy, cervical region. Bed requested for Telemetry/MedSurg (observation). Status is Observation. Condition is Fair. Problem is new. Symptoms have improved. UTI on Admission? No. lucio 19:59 18:38 08/23/2018 16:07 Hospitalization Ordered by Franklin Huston MD for Observation. lucio Preliminary diagnosis is Other chest pain; Pain in right upper arm; Type 1 diabetes mellitus; Hypomagnesemia; Radiculopathy, cervical region. Bed requested for Telemetry/MedSurg (observation). Status is Observation. Condition is Fair. Problem is new. Symptoms have improved. UTI on Admission? No. dw 20:17 19:59 08/23/2018 16:07 Hospitalization Ordered by Franklin Huston MD for Observation. jb4 Preliminary diagnosis is Other chest pain; Pain in right upper arm; Type 1 diabetes mellitus; Hypomagnesemia; Radiculopathy, cervical region; Spondylolysis, cervical region. Bed requested for Telemetry/MedSurg (observation). Status is Observation. Condition is Fair. Problem is new. Symptoms have improved. UTI on Admission? No. lucio
[2018-08-23 16:34] LABS: Absolute Lymphocytes (CBC) 1.9 K/uL (0.7-4.9); Absolute Monocytes 0.6 K/uL (0.1-1.3); Basophils % 0.8 % (0-1.3); Eosinophils % 0.7 % (0-4.4); Hematocrit 39.3 % (36.0-45.0); Lymphocytes % 20.1 % (15.3-44.8); MPV 8.2 fL (7.6-11.3); Monocytes % 5.8 % (3.3-12.3); RBC Red Blood Cell Count 4.46 M/uL (3.86-4.86)
[2018-08-23 16:35] LABS: Protime INR 1.03
[2018-08-23] MEDS ORDERED: ASPIRIN 81 MG CHEWABLE TABLET ONE (16:48)
[2018-08-23] MEDS ORDERED: NA CHLORIDE 0.9% 1,000 ML ONE (16:49)
[2018-08-23] MEDS ORDERED: MORPHINE 2 MG/ML SYR ONE (16:49)
[2018-08-23] MEDS ORDERED: ONDANSETRON 4 MG/2 ML VIAL ONE (16:49)
[2018-08-23 16:55] LABS: ALT/SGPT 21 U/L (12-78); AST/SGOT 18 U/L (15-37); Albumin 3.7 g/dL (3.4-5.0); Alkaline Phosphatase 68 U/L (45-117); BUN Blood Urea Nitrogen 18 mg/dL (7-18); Bicarbonate 25 mmol/L (21-32); Bilirubin Direct 0.2 mg/dL (0-0.2); Bilirubin Total 0.6 mg/dL (0.2-1.0); Glucose Level 245 mg/dL (74-106); Magnesium 1.6 mg/dL (1.8-2.4); NT PRO-BNP 127 pg/mL (<125); Potassium 4.7 mmol/L (3.5-5.1); Protein, Total 7.1 g/dL (6.4-8.2); Sodium Level 136 mmol/L (136-145); Troponin (Emerg Dept Use Only) < 0.02 ng/mL (0.0-0.045)
--- NOTE | 2018-08-23 17:00 | RAD REPORT ---
EXAM DESCRIPTION: MRI - C Spine Wo Cont- 08/23/2018 4:41 pm CLINICAL HISTORY: pain Radiculopathy COMPARISON: No comparisons FINDINGS: Cervical vertebral bodies are normal in height and alignment. No suspicious marrow edema or marrow replacing process. No fracture or traumatic subluxation. The craniocervical junction is normal. C2-3 level: No significant findings. C3-4 level: Mild facet hypertrophy mildly narrows the left exit foramen. C4-5 level: No significant findings. C5-6 level: Small posterior osteophyte/ disc complex is present. C6-7 level: 3 mm central disc protrusion is present attenuating the anterior subarachnoid space conta cting and deforming the cord. Mild narrowing of both exit foramina seen. C7-T1 level: No significant findings. Cervical cord is normal in size and signal. IMPRESSION: Prominent disc protrusion at C6-7.
--- NOTE | 2018-08-23 17:14 | RAD REPORT ---
EXAM DESCRIPTION: RAD - Chest Single View - 08/23/2018 4:57 pm CLINICAL HISTORY: CHEST PAIN Chest pain. COMPARISON: Chest Single View dated 08/09/2018; Chest Single View dated 07/22/2018; Chest Single View d ated 04/10/2016; CHEST SINGLE VIEW dated 11/03/2011 FINDINGS: Portable technique limits examination quality. The lungs are grossly clear. The heart is normal in size. No displaced fractures. IMPRESSION: No acute intrathoracic process suspected.
--- NOTE | 2018-08-23 17:20 | EKG ---
Test Date: 2018-08-23 Test Time: 15:32:08 Music Publisher: OCHOA MEASUREMENT RESULTS: Intervals: Rate: 89 TN: 144 QRSD: 68 QT: 368 QTc: 447 [place]: P: 17 TN: 144 QRS: -42 T: 15 INTERPRETIVE STATEMENTS: Normal sinus rhythm Left axis deviation Inferior infarct, age undetermined Anterolateral infarct, age undetermined Abnormal ECG Compared to ECG 08/09/2018 20:23:44 Left-axis deviation now present Myocardial infarct finding still present Electronically Signed On 08-23-18 16:41:10 CDT by Jose R Nava
--- NOTE | 2018-08-23 17:39 | RAD REPORT ---
EXAM DESCRIPTION: RAD - C Spine Ap/Lat - 08/23/2018 4:57 pm CLINICAL HISTORY: PAIN COMPARISON: No comparisons FINDINGS: Cervical bodies are normal in height and alignment.No fracture or acute bony process seen. Mild disc thinning with small endplate osteophytes. No prevertebral soft tissue thickening or other suspicious soft tissue finding. Carotid atherosclerosis noted. IMPRESSION: Mild lower cervical spondylosis.
--- NOTE | 2018-08-23 17:40 | RAD REPORT ---
EXAM DESCRIPTION: RAD - Shoulder Right 2 View - 08/23/2018 4:57 pm CLINICAL HISTORY: PAIN COMPARISON: Shoulder Right 2 View dated 08/09/2018 FINDINGS: Glenohumeral and AC joint degenerative changes are present. No fracture or dislocation is seen.
[2018-08-23] MEDS ORDERED: MAGNESIUM SULFATE 1 gm IVPB 1 GM/100 ML BAG IV ONE (17:49)
[2018-08-23] MEDS ORDERED: ENOXAPARIN 80 MG/0.8 ML SQ ONE (19:40)
[2018-08-23 20:33] VITALS: BMI 30.7
[2018-08-23] MEDS ORDERED: ONDANSETRON 4 MG/2 ML VIAL IV PRN (21:03)
[2018-08-23 23:35] LABS: Urine Appearance CLOUDY; Urine Bilirubin NEGATIVE (NEG); Urine Blood NEGATIVE (NEG); Urine Color YELLOW; Urine Glucose 2+ (NEG); Urine Protein NEGATIVE (NEG); Urine Specific Gravity 1.015 (1.005-1.030); Urine pH 6.5 (5.0-7.0)
[2018-08-23 23:36] LABS: Urine Microscopic Reflex NO UMIC
[2018-08-24] MEDS ORDERED: GLUCAGON 1 MG/VIAL IM PRN (00:02)
[2018-08-24] MEDS ORDERED: D50W 25 GM/50 ML SYRINGE IV PRN (00:02)
[2018-08-24] MEDS ORDERED: TRAMADOL HCL 50 MG TAB PO PRN (00:11)
--- NOTE | 2018-08-24 04:51 | P.HP ---
Certification for Inpatient Patient admitted to: Observation With expected LOS: <2 Midnights Practitioner: I am a practitioner with admitting privileges, knowledge of patient current condition, hospital course, and medical plan of care. Services: Services provided to patient in accordance with Admission requirements found in Title 42 Section 412.3 of the Code of Federal Regulations Patient History Date of Service: 08/23/18 Reason for admission: right shoulder pain History of Present Illness: Ms Shelby id a 73 years old woman with history of CVA, HTN, DM II, who came to ER complaining of right shoulder pain. The pain was elicited by arm movement , and is radiated to her right side of the chest. She has been evaluated previously by cardiology team for the same symptoms. She had normal ECHO and stress test. She denied nausea, vomiting, diaphoresis or SOB associated with the pain. Lab work unremarkable, trop I negative, EKG without ST-T abnormalities. XR right shoulder consitent with degenerative joint disease. Allergies No Known Drug Allergies Allergy (Verified 07/22/18 23:50) Unknown Home medications list reviewed: Yes Home Medications: Hum Insulin NPH/Reg Insulin Hm [Humulin 70-30 Vial] 40 unit SQ BEDTIME 11/04/11 Hum Insulin NPH/Reg Insulin Hm [Humulin 70-30 Vial] 40 unit SQ INSAM 11/04/11 Lisinopril [Prinivil] 10 mg PO DAILY 11/04/11 Metformin ER [Glucophage ER*] 500 mg PO BID 04/10/16 Clopidogrel Bisulfate [Plavix*] 75 mg PO DAILY #30 tablet 04/12/16 Magnesium Oxide [Mag 0X*] 400 mg PO BID #60 tab 04/12/16 Potassium Chloride [K-Dur] 20 meq PO DAILY #30 tab.er.prt 04/12/16 - Past Medical/Surgical History Has patient received pneumonia vaccine in the past: Yes Diabetic: Yes -: HTN -: IDDM -: CVA 2009 -: Cholecystectomy -: Hysterectomy -: Back SX 1989 - Family History Brother -: Hypertension - Social History Smoking Status: Never smoker Alcohol use: No CD- Drugs: No Caffeine use: No Place of Residence: Home Review of Systems 10-point ROS is otherwise unremarkable Physical Examination - Vital Signs Temperature: 98.8 F Blood Pressure: 165/73 Pulse: 69 Respirations: 16 - Physical Exam General: Alert, In no apparent distress HEENT: Atraumatic, PERRLA, Mucous membr. moist/pink, EOMI, Sclerae nonicteric Neck: Supple, 2+ carotid pulse no bruit, No LAD, Without JVD or thyroid abnormality Respiratory: Clear to auscultation bilaterally, Normal air movement Cardiovascular: Regular rate/rhythm, Normal S1 S2 Gastrointestinal: Normal bowel sounds, No tenderness Musculoskeletal: Tenderness (right shoulder pain with arm movements) Integumentary: No rashes Neurological: Normal speech, Normal strength at 5/5 x4 extr, Normal tone, Normal affect Lymphatics: No axilla or inguinal lymphadenopathy - Studies Laboratory Data (last 24 hrs) 08/23/18 16:07: PT 12.1, INR 1.03 08/23/18 16:07: WBC 9.6, Hgb 13.3, Hct 39.3, Plt Count 309 08/23/18 16:07: Sodium 136, Potassium 4.7, BUN 18, Creatinine 0.77, Glucose 245 H, Magnesium 1.6 L, Total Bilirubin 0.6, AST 18, ALT 21, Alkaline Phosphatase 68 Assessment and Plan - Problems (Diagnosis) (1) Atypical chest pain Current Visit: No Status: Acute (2) Essential hypertension Current Visit: No Status: Chronic (3) Type 2 diabetes mellitus Current Visit: No Status: Chronic Qualifiers: Diabetes mellitus shelter insulin use: with shelter use Diabetes mellitus complication status: with unspecified complications Qualified Code(s) : E11.8 - Type 2 diabetes mellitus with unspecified complications; Z79.4 - [facility] (current) use of insulin - Plan The patient was admitted due to chest pain, which is atypical, actually is right shoulder pain. Will start pain medication, consult PT for evaluation and recommendations. - Advance Directives Does patient have a Living Will: No Does patient have a Durable POA for Healthcare: No - Code Status/Comfort Care Code Status Assessed: Yes Code Status: Full Code
[2018-08-24 05:57] VITALS: O2SAT 93
[2018-08-24 06:54] LABS: Absolute Lymphocytes (CBC) 2.5 K/uL (0.7-4.9); Absolute Monocytes 0.6 K/uL (0.1-1.3); Absolute Neutrophil 4.1 K/uL (1.8-8.0); Basophils % 0.9 % (0-1.3); Eosinophils % 1.2 % (0-4.4); Hematocrit 37.4 % (36.0-45.0); MPV 8.3 fL (7.6-11.3); Monocytes % 8.2 % (3.3-12.3); RBC Red Blood Cell Count 4.25 M/uL (3.86-4.86)
[2018-08-24 07:13] LABS: ALT/SGPT 22 U/L (12-78); AST/SGOT 23 U/L (15-37); Albumin 3.3 g/dL (3.4-5.0); Alkaline Phosphatase 65 U/L (45-117); BUN Blood Urea Nitrogen 15 mg/dL (7-18); Bicarbonate 29 mmol/L (21-32); Bilirubin Total 0.7 mg/dL (0.2-1.0); Glucose Level 220 mg/dL (74-106); HDL Cholesterol 43 mg/dL (40-60); LDL Cholesterol, Calculated 59 (<130); Magnesium 1.8 mg/dL (1.8-2.4); Potassium 4.7 mmol/L (3.5-5.1); Protein, Total 6.7 g/dL (6.4-8.2); Sodium Level 138 mmol/L (136-145)
[2018-08-24] MEDS: INSULIN -REGULAR HUMAN 50 UNIT/0.5 ML ML SQ SCH ×2 (07:30→11:30)
[2018-08-24] MEDS ORDERED: ENOXAPARIN 40 MG/0.4 ML SQ SCH (09:00)
[2018-08-24] MEDS ORDERED: ASPIRIN EC 81 MG TAB PO SCH (09:00)
[2018-08-24] MEDS ORDERED: MAGNESIUM SULFATE 1 gm IVPB 1 GM/100 ML BAG IV ONE (09:00)
[2018-08-24] MEDS ORDERED: HYDROCODONE/APAP 5/325 MG TAB PO ONE (09:28)
[2018-08-24] MEDS ORDERED: METHYLPREDNISOLONE 40 MG INJ IV ONE (11:48)
[2018-08-24 12:23] VITALS: BP 160/80; TEMP 97.9
--- NOTE | 2018-08-25 04:46 | DS ---
Date of Discharge: 08/24/2018 code status: full Discharge Diagnoses: 1. Atypical chest pain. 2. Right shoulder pain. 3. Cervical spinal stenosis. 4. Obesity. 5. Essential hypertension. 6. Diabetes mellitus type 2, insulin requiring with hyperglycemia. 7. History of cerebrovascular accident. Hospital Course: The patient is a 73-year-old female with past medical history of hypertension, diabetes, stroke, comes in with right shoulder pain, radiating to the chest. The patient was recently evaluated by Cardiology with echocardiogram and stress test which were negative 1 month prior to admission. The patient was readmitted for symptoms of atypical chest pain and right-sided shoulder pain. The patient did have cardiac enzymes which were negative x3. ACS was ruled out. The patient's imaging studies including cervical spine MRI did show some prominent disk protrusion at C6-C7 causing some deformity of the cord. The patient understands that this is musculoskeletal pain in nature of her right shoulder. She denies any trauma, fall, motor vehicle accident. She is right-hand dominant. The patient will need a right shoulder MRI to rule out rotator cuff pathology and to follow up with Orthopedics. I did contact Dr. Josh Rosario with Neurosurgery and discussed the case with him, he agrees with outpatient followup. The patient's face sheet was faxed to his office, and the patient will be seen on Thursday for evaluation. The patient was given dose of steroids as well. The patient was then discharged home in a stable condition. Activity: As tolerated. Medications: As per medication reconciliation list. Followup: Follow up with primary care physician in 2-3 days. Follow up with orthopedic surgeon in 2 weeks. Follow up with Dr. Rosario, neurosurgeon on Thursday. Return to ER for worsening condition. Diet: Diabetic. Physical Examination: General: Awake, alert, oriented x3, no acute distress, elderly female. CV: S1, S2. No murmurs. Respiratory: Moving air well bilaterally. No wheezing. Gastrointestinal: Abdomen is soft, nontender, nondistended. Positive bowel sounds. Extremities: No clubbing, cyanosis, edema. Musculoskeletal: Decreased right shoulder range of motion, pain present. Tenderness to palpation. Neurologic: Nonfocal. SA/MODL Voice ID: [id number] Report ID: [id number] [facility]
== END 2018-08-24 14:28 | disposition home or self-care (01) ==
LOC: ER 15:17 → ERHOLD 17:21 → 4TH 19:58
PROVIDERS: ADMIT Family Medicine; ATTEND Internal Medicine
DX: R07.89 Other chest pain (principal); M25.511 Pain in right shoulder; M48.02 Spinal stenosis, cervical region; E11.65 Type 2 diabetes mellitus with hyperglycemia; I10 Essential (primary) hypertension; Z86.73 Personal history of transient ischemic attack (TIA), and cerebral infarction without residual deficits; Z79.4 Long term (current) use of insulin; E66.9 Obesity, unspecified; Z68.30 Body mass index [BMI] 30.0-30.9, adult
CPT/HCPCS: 96365; 93005; 85025 ×2; 80048; 36415; 83735 ×2; 84100; 85610; 80061; 82962 ×2; 80076; 81003; 84484 ×3; 80053; 83880; 71045; 72040; 73030; 72141; 97163; 94760; 96375; 96372; 99285; J1650 ×2; J3475; J2270; J7030; J2405; G0378 ×2

== ENCOUNTER 2018-12-21 01:25 | Emergency (ER) | payer OTHER ==
--- OUTSIDE RECORDS SUMMARY | 2018-12-21 01:28 | XMS REPORT ---
:1945 [facility] Address [address] [place] [address] Care Team Providers Name Role Phone Unavailable Unavailable Unavailable Problems This patient has no known problems. Allergies, Adverse Reactions, Alerts This patient has no known allergies or adverse reactions. Medications This patient has no known medications.
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
[2018-12-21 03:24] VITALS: BP 139/75; TEMP 97.6; O2SAT 97
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
== END 2018-12-21 03:18 | disposition home or self-care (01) ==
LOC: ER 01:25
DX: M54.2 Cervicalgia (principal); Z79.82 Long term (current) use of aspirin; Z79.4 Long term (current) use of insulin; E11.9 Type 2 diabetes mellitus without complications; E78.5 Hyperlipidemia, unspecified; I10 Essential (primary) hypertension
CPT/HCPCS: 70450; 72125; 99283

== ENCOUNTER 2019-11-27 21:14 | Observation (INO) | payer OTHER ==
--- OUTSIDE RECORDS SUMMARY | 2019-11-27 21:17 | XMS REPORT | Clinical Summary ---
:1945 Author Organization [facility] Address [address] [place] [address] Care Team Providers Name Role Phone Michael Rosales MD Primary Care Provider Allergies No Known Allergies Medications Medication Sig Dispensed Refills Start Date End Date Status sertraline (ZOLOFT) Take 100 mg by 0 Active 100 MG tablet mouth daily. clopidogrel (PLAVIX) Take 75 mg by 0 Active 75 mg tablet mouth daily. methocarbamol Take 1,000 mg by 0 Active (ROBAXIN) 500 MG mouth every 6 tablet (six) hours as needed for muscle spasms. metFORMIN Take 500 mg by 0 Activ e (GLUCOPHAGE) 500 mg mouth 2 (two) tablet times a day with meals. potassium chloride Take 10 mEq by 0 Active (K-DUR) 10 MEQ CR mouth daily. tablet cholecalciferol, Take 1 capsule by 0 Active vitamin D3, (VITAMIN mouth daily. D3) 400 unit capsule gabapentin Take 100 mg by 0 Acti ve (NEURONTIN) 100 mg mouth 3 (three) capsule times a day. pantoprazole Take 40 mg by 0 Act edwige (PROTONIX) 40 MG EC mouth daily. tablet lubiprostone Take 24 mcg by 0 Ac tive (AMITIZA) 24 MCG mouth 2 (two) capsule times a day with meals. aspirin (ECOTRIN) 81 Take 81 mg by 0 Active MG enteric coated mouth daily. tablet insulin GLARGINE Inject 44 Units 0 Active (LANTUS) 100 unit/mL under the skin 2 injection (vial) (two) times a day. nitroglycerin Place 0.4 mg 0 Act edwige (NITROSTAT) 0.4 MG SL under the tongue tablet every 5 (five) minutes as needed for chest pain. diclofenac (VOLTAREN) Apply topically 4 3 Tube 5 05/04/2019 05/03/2020 Active 1 % gel (four) times a day. blood sugar 1 strip by Other 0 01/04/2018 Active diagnostic strips route. (glucose blood) strip test strips Active Problems Not on file Encounters Date Type Specialty Care Team Description 06/15/2019 Office Visit Rheumatology Daijajennpaulina DustinDO lakshmi Osteoarth ritis of right shoulder, unspecified osteoarthritis type (Primary Dx); History of DVT (deep vein thrombosis); Right hand pain 05/04/2019 Office Visit Rheumatology Daijakylie DusitnDO lakshmi Osteoarth ritis of right shoulder, unspecified osteoarthritis type (Primary Dx); Left ankle swel ling; History of DVT (deep vein thrombosis) after 11/26/2018 Family History Medical History Relation Name Comments Diabetes Brother Diabetes Maternal Grandmother Kidney disease Maternal Grandmother Relation Name Status Comments Brother Maternal Grandmother Social History Tobacco Use Types Packs/Day Years Used Date Never Smoker Smokeless Tobacco: Never Used Alcohol Use Drinks/Week oz/Week Comments Yes 1 Cans of beer 1.0 monthly Sex Assigned at Date Recorded Not on file Job Start Date Occupation Industry Not on file Not on file Not on file Travel History Travel Start Travel End No recent travel history available. Last Filed Vital Signs Vital Sign Reading Time Taken Comments Blood Pressure 143/84 06/15/2019 11:39 AM [employer] IN [employer] Pulse 89 06/15/2019 11:39 AM [employer] IN HOU[employer] Temperature 36.8 C (98.3 F) 06/15/2019 11:39 AM [employer] IN HOU[employer] Respiratory Rate - - Oxygen Saturation 99% 06/15/2019 11:39 AM [employer] IN HOUSEK[employer] Inhaled Oxygen Concentration - - Weight 73.9 kg (163 lb) 06/15/2019 11:39 AM [employer] IN HOUSEK[employer] Height 160 cm (5' 3") 06/15/2019 11:39 AM [employer] IN HOU[employer] Body Mass Index 28.87 06/15/2019 11:39 AM [employer] IN HOUSEK[employer] Plan of Treatment Date Type Specialty Care Team Description 12/14/2019 Office Visit Rheumatology Blaine DustinDO lakshmi [address] [facility] [address] [place], [place] [address] [phone] Health Maintenance Due Date Last Done Comments DIABETIC RETINAL EYE EXAM 1945 DIABETIC FOOT EXAM 1957 URINE MICROALBUMIN 1957 BREAST CANCER SCREENING 1997 COLONOSCOPY SCREENING 1997 SHINGLES VACCINES (#1) 1997 65+ PNEUMOCOCCAL VACCINE (1 of 2 - PCV13) 2012 INFLUENZA VACCINE 01/07/2020 Procedures Procedure Name Priority Date/Time Associated Comments Diagnosis URIC ACID LEVEL Routine 05/04/2019 12:24 Left ankle swelling R esults for this PM [employer] procedure are i n the results section. SSA/SSB ANTIBODY Routine 05/04/2019 12:24 Left ankle swelling Results for this PM [employer] procedure are i n the results section. BETA-2 GLYCOPROTEIN 1 Routine 05/04/2019 12:24 Left ankl e swelling Results for this ANTIBODY, IGG AND IGM PM [employer] History of DVT proc edure are in (deep vein the results thrombosis) section. CARDIOLIPIN ANTIBODIES Routine 05/04/2019 12:24 Left ank le swelling Results for this PM [employer] HOU[employer] History of DVT procedure are in (deep vein the results thrombosis) section. LUPUS ANTICOAGULANT Routine 05/04/2019 12:24 Left ankle swelling Results for this PANEL PM [employer] HOU[employer] History of DVT procedure are in (deep vein the results thrombosis) section. CYCLIC CITRULLINATED Routine 05/04/2019 12:24 Left ankle swell ing Results for this PEPTIDE AB, IGG PM [employer] HOU[employer] procedure ar e in the results section. RHEUMATOID FACTOR Routine 05/04/2019 12:24 Left ankle swelling Results for this PM [employer] HOU[employer] procedure are i n the results section. ANTINUCLEAR Routine 05/04/2019 12:24 Left ankle swelling Resu lts for this ANTIBODIES, IFA PM [employer] procedure ar e in the results section. C-REACTIVE PROTEIN Routine 05/04/2019 12:24 Left ankle swellin g Results for this PM [employer] procedure are i n the results section. SEDIMENTATION RATE Routine 05/04/2019 12:24 Left ankle swellin g Results for this PM [employer] HOU[employer] procedure are i n the results section. COMPREHENSIVE Routine 05/04/2019 12:24 Left ankle swelling Res ults for this METABOLIC PANEL PM [employer] HOU[employer] procedure ar e in the results section. CBC WITH PLATELET AND Routine 05/04/2019 12:24 Left ankle swel ling Results for this DIFFERENTIAL PM [employer] procedure are i n the results section. after 11/26/2018 Results Antinuclear Antibodies, IFA (05/04/2019 12:24 PM [employer] IN HOUSEKEEPER) Pathologist Sig nature Antinuclear Negative [facility] 02 antibodies (DIAZ) Comment: Negative <1:80 Borderline 1:80 Positive >1:80 Specimen Blood Narrative Performed At Performed at: - [facility] [address] [place] [address] [id number] Fur Buyer: Yo Nicholson MD, Phone: [phone] Performing Organization Address [facility] Phone Number [facility] 02 SSA/SSB antibody (05/04/2019 12:24 PM [employer]IVE IN HOUSEKEEPER) Pathologist Sig nature Sjogren's SS-A antibody <0.2 0.0 - 0.9 AI [facility] Sjogren's SS-B antibody <0.2 0.0 - 0.9 AI [facility] Specimen Blood Narrative Performed At Performed at: [facility] [address] [place] [address] [id number] Fur Buyer: Yo Nicholson MD, Phone: [phone] Performing Organization Address [place] Phone Number [facility] Cyclic citrullinated peptide antibody, IgG (05/04/2019 12:24 PM [employer] IN HOUSEKEEPER) Pathologist Sig nature Cyclic citrullin 7 0 - 19 units [facility] peptide Ab Comment: Negative <20 Weak positive 20 - 39 Moderate positi ve 40 - 59 Strong positive >59 Specimen Blood Narrative Performed At [facility]formed at: [facility] [address] [place] [address] [id number] Fur Buyer: Deep Kaur MD, Phone: [phone] Performing Organization Address [facility] Phone Number [facility] Beta-2 glycoprotein 1 antibody, IgG and IgM (05/04/2019 12:24 PM [employer]IVE IN HOUSEKEEPER) Beta-2 glycoprotein <9 0 - 20 GPI [facility] 1 antibody, IgG Comment: IgG units The reference interval reflects a 3SD or 99th percenti le interval, which is thought to represent a potentially clinically significant result in accordance with the International Consensus Statement on the classification criteria for definitive antiphospho lipid syndrome (APS). J Thromb Haem 2006;4:295-306. Beta-2 glycoprotein <9 0 - 32 GPI [facility] 1 antibody, IgM Comment: IgM units The reference interval reflects a 3SD or 99th percenti le interval, which is thought to represent a potentially clinically significant result in accordance with the International Consensus Statement on the classification criteria for definitive antiphospho lipid syndrome (APS). J Thromb Haem 2006;4:295-306. Specimen Blood Narrative Performed At Performed at: [address] [place] [address] [facility] [address] [place] [address] [id number] Fur Buyer: Deep Kaur MD, Phone: [phone] Performing Organization Address [facility] Phone Number [facility] Lupus anticoagulant panel (05/04/2019 12:24 PM [employer]IVE IN HOUSEKEEPER) Pathologist [facility] Dilute prothrombin 36.8 0.0 - 55.0 [facility] time sec dPT confirm ratio 1.11 0.00 - 1.40 [facility] Ratio Thrombin time 1:1 16.9 0.0 - 23.0 [facility] sec PTT lupus 33.1 0.0 - 51.9 [facility] anticoagulant sec DRVVT 30.4 0.0 - 47.0 [facility] sec Lupus reflex Comment:Comment: No [facility] interpretation lupus anticoagulant was detected. Specimen Blood Narrative Performed At Performed at: [address] [place], [place] [address] [id number] Fur Buyer: Deep Kaur MD, Phone: [phone] Performing Organization Address [place] Phone Number [facility] Cardiolipin antibodies (05/04/2019 12:24 PM [employer]IVE IN HOUSEKEEPER) Pathologist [facility] Cardiolipin IgG <9 0 - 14 GPL [facility] Comment: U/mL Negative: <15 Indeterminate: 15 - 20 Low-Med Positiv e: >20 - 80 High Positive: >80 Cardiolipin IgM <9 0 - 12 MPL [facility] Comment: U/mL Negative: <13 Indeterminate: 13 - 20 Low-Med Positiv e: >20 - 80 High Positive: >80 Anticardiolipin Ab, IgA, <9 0 - 11 APL [facility] qn Comment: U/mL Negative: <12 Indeterminate: 12 - 20 Low-Med Positiv e: >20 - 80 High Positive: >80 Specimen Blood Narrative Performed At Performed at: [address] [place] [address] [id number] Fur Buyer: Deep Kaur MD, Phone: [phone] Performing Organization Address [facility] Phone Number [facility] Sedimentation rate (05/04/2019 12:24 PM [employer]IVE IN HOUSEKEEPER) Pathologist Sig nature Sedimentation rate 14 0 - 40 mm/hr [facility] Specimen Blood Narrative Performed At Performed at: - [facility] [address] [place] [address] [id number] Fur Buyer: Yo Nicholson MD, Phone: [phone] Performing Organization Address [facility] Phone Number [facility] CBC with platelet and differential (05/04/2019 12:24 PM [employer]IVE IN HOUSEKEEPER) Pathologist Sig nature WBC 7.5 3.4 - 10.8 x10E3/uL [facility] RBC 4.55 3.77 - 5.28 x10E6/uL [facility] HGB 13.0 11.1 - 15.9 g/dL [facility] HCT 38.8 34.0 - 46.6 % [facility] MCV 85 79 - 97 fL [facility] MCH 28.6 26.6 - 33.0 pg [facility] MCHC 33.5 31.5 - 35.7 g/dL [facility] RDW 13.3 12.3 - 15.4 % [facility] Platelet count 416 150 - 450 x10E3/uL [facility] Neutrophils 65 Not Estab. % [facility] Lymphocytes 27 Not Estab. % [facility] Monocytes 6 Not Estab. % [facility] Eosinophils 1 Not Estab. % [facility] Basophils 1 Not Estab. % [facility] Neutrophils, absolute 4.9 1.4 - 7.0 x10E3/uL [facility] Lymphocytes, absolute 2.0 0.7 - 3.1 x10E3/uL [facility] Monocytes, absolute 0.4 0.1 - 0.9 x10E3/uL [facility] Eosinophils, absolute 0.1 0.0 - 0.4 x10E3/uL [facility] Basophils, absolute 0.1 0.0 - 0.2 x10E3/uL [facility] Immature granulocytes 0 Not Estab. % [facility] Immature grans (abs) 0.0 0.0 - 0.1 x10E3/uL [facility] Specimen Blood Narrative Performed At Performed at: [facility] [place], [place] [id number] Fur Buyer: Yo Nicholson MD, Phone: [phone] Performing Organization Address [facility] Phone Number [facility] Rheumatoid factor (05/04/2019 12:24 PM LIVE IN HOUSEKEEPER) Pathologist Sig nature Rheumatoid arthritis latex 11.5 0.0 - 13.9 IU/mL [facility] turbid Specimen Blood Narrative Performed At Performed at: [address] [place] [address] [id number] Fur Buyer: Yo Nicholson MD, Phone: [phone] Performing Organization Address [facility] Phone Number [facility] C-reactive protein (05/04/2019 12:24 PM LIVE IN HOUSEKEEPER) Pathologist Sig nature CRP 4 0 - 10 mg/L [facility] Specimen Blood Narrative Performed At Performed at: [address] [place] [address] [id number] Fur Buyer: Yo Nicholson MD, Phone: [phone] Performing Organization Address [facility] Phone Number [facility] Uric acid level (05/04/2019 12:24 PM LIVE IN HOUSEKEEPER) Pathologist Sig [facility] Uric acid 3.1Comment: 2.5 - 7.1 mg/dL [facility] Therapeutic target for gout patients: <6.0 Specimen Blood Narrative Performed At Performed at: [address] [place] [address] [id number] Fur Buyer: Yo Nicholson MD, Phone: [phone] Performing Organization Address [facility] Phone Number [facility] Comprehensive metabolic panel (05/04/2019 12:24 PM [employer]IVE IN HOUSEKEEPER) Pathologist Sig nature Glucose 310 (H) 65 - 99 mg/dL [facility] BUN 10 8 - 27 mg/dL [facility] Creatinine 0.60 0.57 - 1.00 mg/dL [facility] EGFR Non-Afr. [place] Islander 92 >59 mL/min/1.73 [facility] EGFR 106 >59 mL/min/1.73 [facility] BUN/creatinine ratio 17 12 - 28 [facility] Sodium 136 134 - 144 mmol/L [facility] Potassium 4.6 3.5 - 5.2 mmol/L [facility] Chloride 95 (L) 96 - 106 mmol/L [facility] CO2 20 20 - 29 mmol/L [facility] Calcium 9.3 8.7 - 10.3 mg/dL [facility] Protein 7.2 6.0 - 8.5 g/dL [facility] Albumin, S 4.2 3.5 - 4.8 g/dL [facility] Globulin, total 3.0 1.5 - 4.5 g/dL [facility] Albumin/globulin ratio 1.4 1.2 - 2.2 [facility] Total bilirubin 0.5 0.0 - 1.2 mg/dL [facility] Alkaline phosphatase 89 39 - 117 IU/L [facility] AST 13 0 - 40 IU/L [facility] ALT 10 0 - 32 IU/L [facility] Specimen Blood Narrative Performed At Performed at: 01 - [facility] [place] [facility] [address] [place], [place] [id number] 143 Fur Buyer: Yo Nicholson MD, Phone: [phone] Performing Organization Address City/State/Zipcode Phone Number [facility] after 11/26/2018 Advance Directives For more information, please contact: [phone] Type Date Recorded 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
--- OUTSIDE RECORDS SUMMARY | 2019-11-27 21:18 | XMS REPORT | Summary of Care ---
:1945 Author Organization [facility] Address [address] [place] [id number] Care Team Providers Name Role Phone Michael Rosales Primary Care Provider Reason for Visit Reason Comments Assessment Appointment Encounter Details Date Type Department Care Team Description 08/26/2019 Telephone [facility] Eusebio Menard ssandrea; Appointment Specialties - Louie Danielson MD [address] [place] [address], [address] [place] [address] [address] [place] [address] [place], [place] [phone] [id number] Allergies No Known Allergiesdocumented as of this encounter (statuses as of 08/30/2019) Medications Medication Sig Dispensed Refills Start Date End Date Status metFORMIN (GLUCOPHAGE) Take 500 mg by 0 Active 500 mg tablet mouth 2 (two) times daily with meals. lisinopril Take 20 mg by 0 Activ e (PRINIVIL,ZESTRIL) 20 mouth daily. mg tablet atorvastatin 80 mg Take 1 tablet by 90 tablet 3 09/11/2017 Active tablet mouth at bedtime. pantoprazole 40 mg EC Take 1 tablet by 30 tablet 2 09/12/2017 Active tablet mouth daily. nitroglycerin 0.[address] 1 tablet 1 Bottle 0 09/11/2017 Active sublingual tablet under the tongue every 5 (five) minutes as needed for Chest pain. insulin glargine inject 40 Units 0 Active (LANTUS) 100 unit/mL under the skin 2 injection (two) times daily. aspirin 81 mg chewable Take 1 tablet by 90 tablet 3 12/23/2017 Active tablet mouth daily. KCL 10 mEq tablet Take 1 tablet by 30 tablet 0 12/23/2017 Active mouth daily. magnesium oxide 400 mg Take 1 tablet by 30 tablet 0 12/23/2017 Active tablet mouth daily. clopidogrel 75 mg Take 1 tablet by 90 tablet 3 12/23/2017 Active tablet mouth daily. metoprolol succinate XL Take 0.5 tablets 45 tablet 1 8 Active 25 mg 24 hr tablet by mouth daily. 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 NSTEMI (non-ST elevated myocardial infarction) 018 Obesity (BMI 30-39.9) 11/17/2016 Chest pain 11/17/2016 Weakness 11/17/2016 Essential hypertension 11/17/2016 Type 2 diabetes mellitus without complication, without long-term current 11/17/2016 use of insulin Stroke 11/17/2016 documented as of this encounter (statuses as of 08/30/2019) Social History Tobacco Use Types Packs/Day Years Used Date Never Smoker Smokeless Tobacco: Never Used Alcohol Use Drinks/Week oz/Week Comments No Sex Assigned at Date Recorded Not on file Job Start Date Occupation Industry Not on file Not on file Not on file Travel History Travel Start Travel End No recent travel history available. documented as of this encounter Last Filed Vital Signs Not on filedocumented in this encounter Plan of Treatment Health Maintenance Due Date Last Done Comments HEPATITIS C (HCV) SCREEN 1945 EYE EXAM 1955 URINE MICROALBUMIN 1957 DTaP,Tdap,and Td Vaccines (1 - 1958 Tdap) FOOT EXAM 1965 Breast Cancer Screening 1987 (MAMMOGRAM) COLONOSCOPY 1997 Zoster Recombinant Vaccine 1997 (SHINGRIX) (1 of 2) Medicare Wellness Visit 2012 Osteoporosis Screening 2012 PNEUMOCOCCAL VACCINES 65+ (1 of 2 2012 - PCV13) HgA1C 03/10/2018 09/08/2017, 11/17/2016, 11/30/2014 LDL-C 09/08/2018 09/08/2017, 11/17/2016, 11/30/2014 CREATININE (SERUM) 12/23/2018 12/23/2017, 12/23/2017, 12/17/2017, Additional history exists INFLUENZA VACCINE (#1) 2019 documented as of this encounter Results Not on filedocumented in this encounter Insurance Payer Benefit Plan / Subscriber ID Effective Phone Address T ype Group Dates [facility] [id number] 2018-Prese Medic are Adv MEDICARE NON MEDICARE NON nt PPO CONTRACTED CONTRACTED documented as of this encounter
--- OUTSIDE RECORDS SUMMARY | 2019-11-27 21:18 | XMS REPORT | Continuity of Care Document ---
:1945 Author Organization [facility] t Address [address] [place] [address] Care Team Providers Name Role Phone Connie BENOIT, A Primary Care Physician Jagjit Menard MD Attending Clinician Blaine JENNINGS Attending Clinician Payers Payer Name Policy Policy Effective Expiration Source Type Number Date Date TEXANPLUSTEXANPLUS xxxxxxxx 2019 [place] n MCRxxxxxxxx2019-Pre 00:00:00 [facility] sentHMO Problems This patient has no known problems. Allergies, Adverse Reactions, Alerts This patient has no known allergies or adverse reactions. Family History Family Member Diagnosis Comments Start Date Stop Date Source Natural brother Diabetes [facility] Maternal grandmother Diabetes [facility] Maternal grandmother Kidney disease [facility] Social History Social Habit Start Date Stop Date Quantity Comments Source Sex Assigned At [facility] Alcohol intake 2019-06-15 2019-06-15 Current drinker [place] [facility] 00:00:00 00:00:00 of alcohol (finding) Alcohol Comment 2019-05-04 2019-05-04 monthly [facility] 00:00:00 00:00:00 Smoking Status Start Date Stop Date Source [facility] smoker [facility] Medications Ordered Filled Start Stop Current Ordering Indication Dosage Frequency Signature Comments Components Source Medication Medication Date Date Medication? Clinician (SIG) Name Name sertraline Yes 100mg QD Take 100 [place] (ZOLOFT) 1-08 mg by [facility] 100 MG 11:40: mouth st tablet 29 daily. clopidogrel 2020-0 Yes 75mg QD Take 75 mg Walter (PLAVIX) 75 1-08 by mouth Meth barbara mg tablet 11:40: daily. st 29 methocarbam 2020-0 Yes 1000mg Q6H Take 1,000 Walter ol 1-08 mg by Methodi (ROBAXIN) 11:40: mouth st 500 MG 29 every 6 tablet (six) hours as needed for muscle spasms. metFORMIN 2020-0 Yes 500mg Q.5D Take 500 Ilya ston (GLUCOPHAGE 1-08 mg by [facility] ) 500 mg 11:40: mouth 2 st tablet 29 (two) times a day with meals. potassium 2020-0 Yes 10meq QD Take 10 [place] chloride 1-08 mEq by [facility] (K-DUR) 10 11:40: mouth st MEQ CR 29 daily. tablet cholecalcif 2020-0 Yes 1{capsu QD Take 1 [place] moe, 1-08 le} capsule by [facility] vitamin D3, 11:40: mouth st (VITAMIN 29 daily. D3) 400 unit capsule gabapentin 2020-0 Yes 100mg Q.[id number] Take 100 Walter (NEURONTIN) 1-08 [id number] mg by M ethodi 100 mg 11:40: 3D mouth 3 st capsule 29 (three) times a day. pantoprazol 2020-0 Yes 40mg QD Take 40 mg Walter e 1-08 by mouth Methodi (PROTONIX) 11:40: daily. st 40 MG EC 29 tablet lubiproston 2020-0 Yes 24ug Q.5D Take 24 Ilya ston e (AMITIZA) 1-08 mcg by Method i 24 MCG 11:40: mouth 2 st capsule 29 (two) times a day with meals. aspirin 2020-0 Yes 81mg QD Take 81 mg [place] (ECOTRIN) 1-08 by mouth Method i 81 MG 11:40: daily. st enteric 29 coated tablet insulin 2020-0 Yes 44U Q.5D Inject 44 [place] GLARGINE 1-08 Units [facility]i (LANTUS) 11:40: under the st 100 unit/mL 29 skin 2 injection (two) (vial) times a day. nitroglycer 2020-[address] 0.4 [place] in 1-08 mg under [facility] (NITROSTAT) 11:40: the tongue st 0.4 MG SL 29 every 5 tablet (five) minutes as needed for chest pain. diclofenac 2018-06- No Q.25D Apply [place] (VOLTAREN) 07-04 topically Met hodi 1 % gel 00:00: 23:59 4 (four) st 00 :00 times a day. blood sugar Yes 1{strip 1 strip by [facility] 7-30 } Other [facility] strips 00:00: route. st (glucose 00 blood) strip test strips Vital Signs Vital Name Observation Time Observation Value Comments Source Systolic blood 2019-06-15 11:39:00 143 mm[Hg] [place] [facility] pressure Diastolic blood 2019-06-15 11:39:00 84 mm[Hg] [place] [facility] pressure Heart rate 2019-06-15 11:39:00 89 /min Jose Angel James Body temperature 2019-06-15 11:39:00 36.83 Dionne Dusty James Body height 2019-06-15 11:39:00 160 cm Jose Angel James Body weight 2019-06-15 11:39:00 73.936 kg Jose Angel James BMI 2019-06-15 11:39:00 28.87 kg/m2 Jose Angel James Oxygen saturation in 2019-06-15 11:39:00 99 /min Jose Angel James Arterial blood by Pulse oximetry Procedures Procedure Date / Time Performed Performing Clinician [facility] CBC WITH PLATELET AND 2019-05-04 12:24:00 Gisela Valladares DIFFERENTIAL COMPREHENSIVE METABOLIC 2019-05-04 12:24:00 Gisela Valladares PANEL SEDIMENTATION RATE 2019-05-04 12:24:00 Gisela Valladares M ethodist C-REACTIVE PROTEIN 2019-05-04 12:24:00 Gisela Valladares ethodist ANTINUCLEAR ANTIBODIES, 2019-05-04 12:24:00 Gisela Valladares IFA RHEUMATOID FACTOR 2019-05-04 12:24:00 Gisela Valladares Me thodist CYCLIC CITRULLINATED 2019-05-04 12:24:00 Gisela Valladares PEPTIDE AB, IGG LUPUS ANTICOAGULANT PANEL 2019-05-04 12:24:00 Fakoya, Latifa [place] [facility] CARDIOLIPIN ANTIBODIES 2019-05-04 12:24:00 Gisela Valladares [place] BETA-2 GLYCOPROTEIN 1 2019-05-04 12:24:00 Gisela Valladaresto n [facility] ANTIBODY, IGG AND IGM SSA/SSB ANTIBODY 2019-05-04 12:24:00 Gisela Valladares Met hodist URIC ACID LEVEL 2019-05-04 12:24:00 Gisela Valladares Meth odist Plan of Care Planned Activity Planned Date Details Comments Source Future Scheduled 2020-01-07 INFLUENZA VACCINE [place] [facility] Test 00:00:00 [code = INFLUENZA VACCINE] Future Scheduled 2012 65+ PNEUMOCOCCAL [facility] Test 00:00:00 VACCINE (1 of 2 - PCV13) [code = 65+ PNEUMOCOCCAL VACCINE (1 of 2 - PCV13)] Future Scheduled 1997 BREAST CANCER [facility] Or [facility]odist Test 00:00:00 SCREENING [code = BREAST CANCER SCREENING] Future Scheduled 1997 COLONOSCOPY SCREENING [place] [facility] Test 00:00:00 [code = COLONOSCOPY SCREENING] Future Scheduled 1997 SHINGLES VACCINES (#1) [place] [facility] Test 00:00:00 [code = SHINGLES VACCINES (#1)] Future Scheduled 1957 DIABETIC FOOT EXAM [place] [facility] Test 00:00:00 [code = DIABETIC FOOT EXAM] Future Scheduled 1957 URINE MICROALBUMIN [place] [facility] Test 00:00:00 [code = URINE MICROALBUMIN] Future Scheduled 1945 DIABETIC RETINAL EYE [facility] st[facility] Test 00:00:00 EXAM [code = DIABETIC RETINAL EYE EXAM] Encounters Start End Encounter Admission Attending Care Care Encounter Source Date/Time Date/Time Type Type Clinicians Facility Department ID 2019-08-26 2019-08-26 Telephone DerianAVRILTARI [id number] 00:00:00 00:00:00 Eusebio Rm [id number] Ankur [id number] Mary [id number] [facility] [address] Building Results Test Description Test Time Test Comments Results Result Comments Source Cardiolipin antibodies 2019-05-08 16:08:00 Test Item Value Reference Range Interpretation Comme nts Cardiolipin IgG (test <9 0- 14 GPL U/mL code = 3181-5) Negative: <15 Indetermina te: 15 - 20 Low-Med Positive: >20 - 80 High Positive: >80 Cardiolipin IgM (test <9 0- 12 MPL U/mL code = 3182-3) Negative: <13 Indetermina te: 13 - 20 Low-Med Positive: >20 - 80 High Positive: >80 Anticardiolipin Ab, IgA, <9 0- 11 APL U/mL qn (test code = 5076-5) Neg ative: <12 Indetermina te: 12 - 20 Low-Med Positive: >20 - 80 High Positive: >80 SHUN (test code = SHUN) Performed at: - [address] [id number] Director: Deep Kaur MD, Phone: [phone] [facility] 1 antibody, IgG and [id number] 16:08:00 Test Item Value Reference Interpretation Comments Range Beta-2 <9 0- 20 GPI IgG The reference interval glycoprotein 1 units reflects a 3S D or 99th antibody, IgG percentile (test code = [place] [address]-7) thought to repr esent a potentially cli nically significantresu lt in accordance with the International Consensus State ment onthe classific ation criteria for definitive antiphospholipi d syndrome(APS). J Thromb Haem 2006;4:295-306. Beta-2 <9 0- 32 GPI IgM The reference interval glycoprotein 1 units reflects a 3S D or 99th antibody, IgM percentile (test code = [place] 0[address]83-0) thought to repr esent a potentially cli nically significantresu lt in accordance with the International Consensus State ment onthe classific ation criteria for definitive antiphospholipi d syndrome(APS). J Thromb Haem 2006;4:295-306. SHUN (test code = Performed at: SHUN) [address] [id number] Director: Deep Kaur MD, Phone: [phone] [facility] MethodistCyclic citrullinated peptide antibody, [id number] 06:07:00 Test Item Value Reference Range Interpretation Comments Cyclic citrullin 7 0- 19 units peptide Ab (test Neg ative code = 50226-3) <20 Weak positive 2 0 - 39 Moderate positi ve 40 - 59 Strong positive >59 SHUN (test code = Performed at: - SHUN) [address] [id number] Director: Deep Kaur MD, Phone: [phone] [facility] anticoagulant [id number] 14:09:00 Test Item Value Reference Range Interpretation Comments Dilute prothrombin 36.8 0.0- 55.0 sec time (test code = 90411-1) dPT confirm ratio 1.11 0.00- 1.40 (test code = Ratio 44809-6) Thrombin time 1:1 16.9 0.0- 23.0 sec (test code = 3243-3) PTT lupus 33.1 0.0- 51.9 sec anticoagulant (test code = 73782-4) DRVVT (test code = 30.4 0.0- 47.0 sec 6303-2) Lupus reflex Comment: No lupus interpretation (test anticoa gulant was code = 77302-5) detected. SHUN (test code = Performed at: SHUN) [address] [id number] Director: Deep Kaur MD, Phone: [phone] [facility] MethodistAntinuclear Antibodies, [id number] 14:09:00 Test Item Value Reference Range Interpretation Comments Antinuclear Negative antibodies (DIAZ) (test code = Negative <1: 80 5048-4) Borderline 1:8 0 Positive >1:8 0 SHUN (test code = Performed at: 02 SHUN) - [address] [id number] Director: Yo Nicholson MD, Phone: [phone] [facility] MethodistSSA/SSB [id number] 12:08:00 Test Item Value Reference Range Interpretation Comments Sjogren's SS-A <0.2 0.0- 0.9 AI antibody (test code = 31132-6) Sjogren's SS-B <0.2 0.0- 0.9 AI antibody (test code = 28882-8) SHUN (test code = SHUN) Performed at: - [facility] [address] [id number] Director: Yo Nicholson MD, Phone: [phone] [facility] MethodistC-reactive [id number] 10:09:00 Test Item Value Reference Range Interpretation Comments CRP (test code = 4 mg/L 0-10 1988-5) SHUN (test code = Performed at: - SHUN) [facility] [id number] Director: Yo Nicholson MD, Phone: [phone] [facility] MethodistRheumatoid [id number] 10:09:00 Test Item Value Reference Range Interpretation Comments Rheumatoid arthritis 11.5 0.0- 13.9 IU/mL latex turbid (test code = 21475-2) SHUN (test code = SHUN) Performed at: - [facility] [id number] Director: Yo Nicholson MD, Phone: [phone] [facility] MethodistComprehensive metabolic [id number] 06:08:00 Test Item Value Reference Range Interpretation Comments Glucose (test code = 310 mg/dL 65-99 H 2345-7) BUN (test code = 3094-0) 10 mg/dL 8-27 Creatinine (test code = 0.60 mg/dL 0.57-1 2160-0) EGFR Non-Afr. [place] 92 mL/min/1.73 >59 (test code = 2775) EGFR 106 mL/min/1.73 >59 (test code = 2774) BUN/creatinine ratio 17 12-28 (test code = 3097-3) Sodium (test code = 136 mmol/L 218-672 1158-2) Potassium (test code = 4.6 mmol/L 3.5-5.2 2823-3) Chloride (test code = 95 mmol/L 96-106 L 2075-0) CO2 (test code = 2027-9) 20 mmol/L 20-29 Calcium (test code = 9.3 mg/dL 8.7-10.3 88017-5) Protein (test code = 7.2 g/dL 6-8.5 2885-2) Albumin, S (test code = 4.2 g/dL 3.5-4.8 1751-7) Globulin, total (test 3.0 g/dL 1.5-4.5 code = 95743-4) Albumin/globulin ratio 1.4 1.2-2.2 (test code = 1759-0) Total bilirubin (test 0.5 mg/dL 0-1.2 code = 1975-2) Alkaline phosphatase 89 39- 117 IU/L (test code = 6768-6) AST (test code = 1920-8) 13 0- 40 IU/L ALT (test code = 1742-6) 10 0- 32 IU/L SHUN (test code = SHUN) Performed at: - [facility] [address] [place], [place] [id number] Director: Yo Nicholson MD, Phone: [phone] Lab Interpretation (test Abnormal code = 18712-0) [facility] MethodistUric acid [id number] 06:08:00 Test Item Value Reference Range Interpretation Comments Uric acid 3.1 mg/dL 2.5-7.1 (test code = Therapeutic tar get 3084-1) for gout patien ts: <6.0 SHUN (test code Performed at: - = SHUN) [facility] [address] [place], [place] [id number] Director: Yo Nicholson MD, Phone: [phone] [facility] with platelet and [id number] 06:08:00 Test Item Value Reference Range Interpretation Comments WBC (test code = 7.5 3.4- 10.8 x10E3/uL 6690-2) RBC (test code = 4.55 3.77- 5.28 x10E6/uL 789-8) HGB (test code = 13.0 g/dL 11.1-15.9 718-7) HCT (test code = 38.8 % 34-46.6 4544-3) MCV (test code = 85 fL 79-97 787-2) MCH (test code = 28.6 pg 26.6-33 785-6) MCHC (test code = 33.5 g/dL 31.5-35.7 786-4) RDW (test code = 13.3 % 12.3-15.4 788-0) Platelet count (test 416 150- 450 x10E3/uL code = 777-3) Neutrophils (test code 65 % Not Estab. = 770-8) Lymphocytes (test code 27 % Not Estab. = 736-9) Monocytes (test code = 6 % Not Estab. 5905-5) Eosinophils (test code 1 % Not Estab. = 713-8) Basophils (test code = 1 % Not Estab. 706-2) Neutrophils, absolute 4.9 1.4- 7.0 x10E3/uL (test code = 751-8) Lymphocytes, absolute 2.0 0.7- 3.1 x10E3/uL (test code = 731-0) Monocytes, absolute 0.4 0.1- 0.9 x10E3/uL (test code = 742-7) Eosinophils, absolute 0.1 0.0- 0.4 x10E3/uL (test code = 711-2) Basophils, absolute 0.1 0.0- 0.2 x10E3/uL (test code = 704-7) Immature granulocytes 0 % Not Estab. (test code = 27547-4) Immature grans (abs) 0.0 0.0- 0.1 x10E3/uL (test code = 44998-6) SHUN (test code = SHUN) Performed at: [address] [place] [id number] Director: Yo Nicholson MD, Phone: [phone] [facility] MethodistSedimentation [id number] 06:08:00 Test Item Value Reference Range Interpretation Comments Sedimentation rate (test 14 0- 40 mm/hr code = 4537-7) SHUN (test code = SHUN) Performed at: [address] [place] [id number] Director: Yo Nicholson MD, Phone: [phone] [facility]
[2019-11-27] MEDS ORDERED: NA CHLORIDE 0.9% 2,000 ML ONE (22:35)
[2019-11-27 23:05] LABS: Absolute Lymphocytes (CBC) 0.8 K/uL (0.7-4.9); Basophils % 0.5 % (0-1.3); Hematocrit 43.2 % (36.0-45.0); Lymphocytes % 13.9 % (15.3-44.8); MPV 8.3 fL (7.6-11.3); RBC Red Blood Cell Count 4.96 M/uL (3.86-4.86)
[2019-11-27] MEDS ORDERED: CEFTRIAXONE/SWI 1gm 1 GM/10 ML SYR ONE (23:06)
[2019-11-28 00:11] LABS: ALT/SGPT 21 U/L (12-78); AST/SGOT 21 U/L (15-37); Albumin 3.7 g/dL (3.4-5.0); Alkaline Phosphatase 76 U/L (45-117); Amylase 19 U/L (25-115); BUN Blood Urea Nitrogen 10 mg/dL (7-18); Bicarbonate 23 mmol/L (21-32); Bilirubin Direct 0.2 mg/dL (0-0.2); Bilirubin Total 0.8 mg/dL (0.2-1.0); CKMB Creatine Kinase MB < 1.0 ng/mL (0.3-3.6); Creatine Phosphokinase 77 U/L (26-192); Glucose Level 229 mg/dL (74-106); Lipase 82 U/L (73-393); Protein, Total 8.4 g/dL (6.4-8.2); Sodium Level 133 mmol/L (136-145); Troponin (Emerg Dept Use Only) < 0.02 ng/mL (0.0-0.045)
[2019-11-28 00:14] LABS: Potassium 2.9 mmol/L (3.5-5.1)
--- NOTE | 2019-11-28 00:24 | ER ---
Nurse's Notes [facility] Name: Allyssa Shelby Age: 74 yrs Sex: Female : 1945 Arrival Date: 11/27/2019 Time: 21:19 Bed 8 Private MD: Diagnosis: Hypokalemia;Weakness;Type 1 diabetes mellitus;Fever, unspecified Presentation: 11/26 22:13 Chief complaint: Patient states: [place]. GOT HOME AND rv DEVELOPED COUGH FOR TWO DAYS, SOB, DIARRHEA. NO DOCUMENTED FEVER. GENERALIZED WEAKNESS FOR TWO DAYS AND DECREASED APPETITE. Coronavirus screen: Surgical mask placed on patient. Patient moved to private room, placed in contact and droplet isolation with eye protection until further assessment. Patient reports a cough. Patient reports shortness of breath or difficulty breathing. Patient denies measured and/or subjective temperature greater than 100.4F prior to today's visit. Patient reports travel on a cruise ship or to a country the [facility] currently lists as an affected area. Ebola Screen: No symptoms or risks identified at this time. 22:13 Method Of Arrival: Ambulatory rv 22:13 Acuity: JANICE 3 rv 22:16 Initial Sepsis Screen: Does the patient meet any 2 criteria? RR > 20 per min. HR > 90 rv bpm. Does the patient have a suspected source of infection? Yes: Productive cough/pneumonia. Risk Assessment: Do you want to hurt yourself or someone else? Patient reports no desire to harm self or others. Onset of symptoms was November 25, 2019. Triage Assessment: 22:17 General: Appears ill, Behavior is calm, cooperative. Pain: Denies pain. EENT: No signs rv and/or symptoms were reported regarding the EENT system. Neuro: Level of Consciousness is awake, alert, obeys commands, Oriented to person, place, time, situation. Cardiovascular: Patient's skin is warm and dry. Respiratory: Airway is patent Respiratory effort is labored, Respiratory pattern is tachypnea Breath sounds are coarse bilaterally. Derm: Skin is intact. Historical: - Allergies: 22:17 No Known Allergies; rv - PMHx: 22:17 Diabetes - IDDM; Hyperlipidemia; Hypertension; rv - PSHx: 22:17 Appendectomy; Cholecystectomy; rv - Immunization history:: Adult Immunizations up to date. - Social history:: Smoking status: Patient denies any tobacco usage or history of. Screenin:18 Abuse screen: Denies threats or abuse. Denies injuries from another. Nutritional rv screening: No deficits noted. Tuberculosis screening: No symptoms or risk factors identified. Fall Risk None identified. Assessment: 11/27 00:06 Reassessment: Patient and/or family updated on plan of care and expected duration. Pain rv level reassessed. Patient is alert, oriented x 3, equal unlabored respirations, skin warm/dry/pink. update on the plan of care. waiting for admission orders. Vital Signs: 11/26 22:13 BP 171 / 60; Pulse 106; Resp 24; Temp 99.7; Pulse Ox 98% on R/A; Weight 74.84 kg; rv Height 5 ft. 2 in. (157.48 cm); Pain 0/10; 23:15 BP 172 / 73; Pulse 93; Resp 18; Pulse Ox 100% on R/A; rv 11/27 00:02 BP 177 / 70; Pulse 80; Resp 22; Pulse Ox 97% on R/A; rv 01:30 BP 145 / 80; Pulse 84; Resp 25; Pulse Ox 96% ; vc 02:41 BP 146 / 72; Pulse 88; Resp 23; Pulse Ox 97% on R/A; rv 02:49 Temp 98(O); rv 11/26 22:13 Body Mass Index 30.18 (74.84 kg, 157.48 cm) rv ED Course: 11/26 21:19 Patient arrived in ED. ag3 22:07 Ranjeet Hester MD is Attending Physician. lucio 22:13 Ang Tobar RN is Primary Nurse. rv 22:16 Triage completed. rv 22:17 Arm band placed on Patient placed in the treatment room, on a stretcher, Patient rv notified of wait time. 22:20 Patient has correct armband on for positive identification. Bed in low position. Call rv light in reach. Side rails up X 1. national stormwater leader on. Pulse ox on. NIBP on. 22:45 Inserted saline lock: 20 gauge in right antecubital area, using aseptic technique. rv Blood collected. 22:45 No provider procedures requiring assistance completed. rv 22:45 Initial lab(s) drawn, by me, sent to lab. First set of blood cultures drawn by me. rv 22:57 Second set of blood cultures drawn by me. rv 23:18 Chest Single View XRAY In Process Unspecified. EDIL 11/27 00:22 Osvaldo Javier MD is Hospitalizing Provider. lucio 03:55 IV is patent, with fluids infusing freely, with good blood return, Patient admitted, IV rv remains in place. Administered Medications: 11/26 22:58 Drug: Rocephin 1 grams Route: IV; Rate: per protocol; Site: right antecubital; rv 23:00 Follow up: IV Status: Completed infusion rv 22:59 Drug: NS 0.9% (30 ml/kg) 30 ml/kg Route: IV; Rate: bolus; Site: right antecubital; rv 11/27 00:06 Follow up: IV Status: Completed infusion; IV Intake: 2000ml rv 00:57 Drug: Potassium Effervescent Tablet 50 mEq Route: PO; rv 02:43 Follow up: Response: No adverse reaction rv 00:57 Drug: NS 0.9% with KCl 20 mEq/L 1000 ml Route: IV; Rate: 125 ml/hr; Site: right rv antecubital; 02:42 Follow up: IV Status: Infusion continued upon admission rv Intake: 00:06 IV: 2000ml; Total: 2000ml. rv Outcome: 00:23 Decision to Hospitalize by Provider. lucio 03:54 Admitted to Tele accompanied by tech, room 431, with chart, Report called to SONIA HARDWICK rv 03:54 Condition: good 03:54 Instructed on the need for admit, Demonstrated understanding of instructions. 04:07 Patient left the ED. rv Signatures: Dispatcher [employer] EDIL Ranjeet Hester MD MD cha Vicente, Ronaldo, RN RN Any Hooker ag3 Dipti Bass RN RN vc
--- NOTE | 2019-11-28 00:24 | EDPHYS ---
Physician Documentation [facility] Name: Allyssa Shelby Age: 74 yrs Sex: Female : 1945 Arrival Date: 11/27/2019 Time: 21:19 Bed 8 Private MD: ED Physician Ranjeet Hester HPI: 11/26 22:29 This 74 yrs old Female presents to ER via Ambulatory with complaints of lucio Weakness. 22:29 The patient presents to the emergency department with weakness of the. lucio Historical: - Allergies: 22:17 No Known Allergies; rv - PMHx: 22:17 Diabetes - IDDM; Hyperlipidemia; Hypertension; rv - PSHx: 22:17 Appendectomy; Cholecystectomy; rv - Immunization history:: Adult Immunizations up to date. - Social history:: Smoking status: Patient denies any tobacco usage or history of. ROS: 22:29 Eyes: Negative for injury, pain, redness, and discharge, ENT: Negative for injury, lucio pain, and discharge, Neck: Negative for injury, pain, and swelling, Abdomen/GI: Negative for abdominal pain, nausea, vomiting, diarrhea, and constipation, Back: Negative for injury and pain, : Negative for injury, bleeding, discharge, and swelling, MS/Extremity: Negative for injury and deformity, Skin: Negative for injury, rash, and discoloration, Psych: Negative for depression, anxiety, suicide ideation, homicidal ideation, and hallucinations, Allergy/Immunology: Negative for hives, rash, and allergies, Endocrine: Negative for neck swelling, polydipsia, polyuria, polyphagia, and marked weight changes, Hematologic/Lymphatic: Negative for swollen nodes, abnormal bleeding, and unusual bruising. 22:29 Constitutional: Positive for chills, fatigue, fever, malaise. 22:29 Cardiovascular: Positive for palpitations. 22:29 Respiratory: Positive for shortness of breath. 22:29 Abdomen/GI: Positive for diarrhea. 22:29 Neuro: Positive for weakness. Exam: 22:29 Constitutional: This is a well developed, well nourished patient who is awake, alert, lucio and in no acute distress. Head/Face: Normocephalic, atraumatic. Eyes: Pupils equal round and reactive to light, extra-ocular motions intact. Lids and lashes normal. Conjunctiva and sclera are non-icteric and not injected. Cornea within normal limits. Periorbital areas with no swelling, redness, or edema. ENT: Nares patent. No nasal discharge, no septal abnormalities noted. Tympanic membranes are normal and external auditory canals are clear. Oropharynx with no redness, swelling, or masses, exudates, or evidence of obstruction, uvula midline. Mucous membranes moist. Neck: Trachea midline, no thyromegaly or masses palpated, and no cervical lymphadenopathy. Supple, full range of motion without nuchal rigidity, or vertebral point tenderness. No Meningismus. Chest/axilla: Normal chest wall appearance and motion. Nontender with no deformity. No lesions are appreciated. Abdomen/GI: Soft, non-tender, with normal bowel sounds. No distension or tympany. No guarding or rebound. No evidence of tenderness throughout. Back: No spinal tenderness. No costovertebral tenderness. Full range of motion. Female : Normal external genitalia. Skin: Warm, dry with normal turgor. Normal color with no rashes, no lesions, and no evidence of cellulitis. MS/ Extremity: Pulses equal, no cyanosis. Neurovascular intact. Full, normal range of motion. Neuro: Awake and alert, GCS 15, oriented to person, place, time, and situation. Cranial nerves II-XII grossly intact. Motor strength 5/5 in all extremities. Sensory grossly intact. Cerebellar exam normal. Normal gait. Psych: Awake, alert, with orientation to person, place and time. Behavior, mood, and affect are within normal limits. 22:29 Cardiovascular: Rate: tachycardic, Rhythm: regular, Pulses: Pulses are 4+ in bilateral radial, brachial, femoral, popliteal, posterior tibial and and dorsalis pedis arteries.. Heart sounds: normal, Edema: is not appreciated, JVD: is not appreciated. 22:33 ECG was reviewed by the Attending Physician. [facility] Vital Signs: 22:13 BP 171 / 60; Pulse 106; Resp 24; Temp 99.7; Pulse Ox 98% on R/A; Weight 74.84 kg; rv Height 5 ft. 2 in. (157.48 cm); Pain 0/10; 23:15 BP 172 / 73; Pulse 93; Resp 18; Pulse Ox 100% on R/A; rv 11/27 00:02 BP 177 / 70; Pulse 80; Resp 22; Pulse Ox 97% on R/A; rv 01:30 BP 145 / 80; Pulse 84; Resp 25; Pulse Ox 96% ; vc 02:41 BP 146 / 72; Pulse 88; Resp 23; Pulse Ox 97% on R/A; rv 02:49 Temp 98(O); rv 11/26 22:13 Body Mass Index 30.18 (74.84 kg, 157.48 cm) rv MDM: 11/26 22:[address] [facility] 22:31 Data reviewed: vital signs, nurses notes, lab test result(s), EKG, radiologic studies, lucio plain films. 22:31 Differential diagnosis: viral Infection, bacterial infection, URI, bronchitis, lucio pneumonia UTI, gastroenteritis. Differential Diagnosis sepsis, flu. Data interpreted: pvc monitor: rate is 106 beats/min, rhythm is normal sinus rhythm. Test interpretation: by ED physician or midlevel provider: ECG, plain radiologic studies. Counseling: I had a detailed discussion with the patient and/or guardian regarding: the historical points, exam findings, and any diagnostic results supporting the discharge/admit diagnosis, lab results, radiology results, the need for further work-up and treatment in the hospital. Response to treatment: the patient's symptoms have markedly improved after treatment. 22:32 ED course: pt [place] city, got home, got fever,sob and diarrhea, lucio positive covid exposure. 11/26 22:19 Order name: Amylase, Serum rv 11/26 22:19 Order name: Basic Metabolic Panel rv 11/26 22:19 Order name: Blood Culture Adult (2) rv 11/26 22:19 Order name: CBC with Diff rv 11/26 22:19 Order name: Ckmb; Complete Time: 00:17 11/26 22:19 Order name: CPK; Complete Time: 00:17 11/26 22:19 Order name: Lactate; Complete Time: 00:17 11/26 22:19 Order name: LFT's; Complete Time: 00:17 11/26 22:19 Order name: Lipase; Complete Time: 00:17 11/26 22:19 Order name: Procalcitonin; Complete Time: 01:23 rv 11/26 22:19 Order name: Protime (+inr); Complete Time: 23:42 rv 11/26 22:19 Order name: Ptt, Activated; Complete Time: 23:42 11/26 22:19 Order name: Troponin (emerg Dept Use Only); Complete Time: 00:17 11/26 22:19 Order name: Urine Microscopic Only 11/26 22:20 Order name: Amylase; Complete Time: 00:17 EDIA 11/26 22:20 Order name: Basic Metabolic Panel; Complete Time: 00:17 EDIA 11/26 22:20 Order name: Blood Culture [facility] 11/26 22:20 Order name: CBC with Automated Diff; Complete Time: 23:16 EDIA 11/26 22:21 Order name: Influenza Screen (a \T\ B); Complete Time: 01:23 [facility] 11/26 22:21 Order name: Urine Culture [facility] 11/26 22:26 Order name: COVID-19 [facility] 11/27 00:56 Order name: Urine Dipstick--Ancillary (enter results) 11/27 01:45 Order name: Lipid Profile [facility] 11/27 01:45 Order name: Lipid Profile [facility] 11/27 01:47 Order name: Basic Metabolic Panel [facility] 11/27 01:47 Order name: Basic Metabolic Panel [facility] 11/27 01:47 Order name: CBC with Automated Diff [facility] 11/27 01:47 Order name: CBC with Automated Diff [facility] 11/27 01:47 Order name: Lactate [facility] 11/27 01:47 Order name: Lactate [facility] 11/26 22:19 Order name: Chest Single View XRAY 11/26 22:19 Order name: Accucheck; Complete Time: 22:59 11/26 22:19 Order name: Cardiac monitoring; Complete Time: 22:19 11/26 22:19 Order name: EKG - Nurse/Tech; Complete Time: 22:19 11/26 22:19 Order name: IV Saline Lock - Large Bore; Complete Time: 22:20 11/26 22:19 Order name: Labs collected and sent; Complete Time: 22:20 11/26 22:19 Order name: O2 Per Protocol; Complete Time: 22:20 11/26 22:19 Order name: O2 Sat Monitoring; Complete Time: 22:20 11/26 22:19 Order name: Urine Dipstick-Ancillary (obtain specimen); Complete Time: 03:24 11/27 01:45 Order name: Heart Healthy EDMS 11/27 01:47 Order name: Magnesium EDMS 11/27 01:47 Order name: Magnesium EDMS 11/27 01:47 Order name: Phosphorus EDMS 11/27 01:47 Order name: Phosphorus EDMS EC:33 Rate is 108 beats/min. Rhythm is regular. QRS [place] is Normal. [place] interval is normal. lucio QRS interval is normal. QT interval is normal. No Q waves. T waves are Normal. No ST changes noted. Clinical impression: Sinus tachycardia. Interpreted by me. Reviewed by me. Administered Medications: 22:58 Drug: Rocephin 1 grams Route: IV; Rate: per protocol; Site: right antecubital; rv 23:00 Follow up: IV Status: Completed infusion rv 22:59 Drug: NS 0.9% (30 ml/kg) 30 ml/kg Route: IV; Rate: bolus; Site: right antecubital; rv 11/27 00:06 Follow up: IV Status: Completed infusion; IV Intake: 2000ml rv 00:57 Drug: Potassium Effervescent Tablet 50 mEq Route: PO; rv 02:43 Follow up: Response: No adverse reaction rv 00:57 Drug: NS 0.9% with KCl 20 mEq/L 1000 ml Route: IV; Rate: 125 ml/hr; Site: right rv antecubital; 02:42 Follow up: IV Status: Infusion continued upon admission rv Disposition: 11/28/19 00:23 Hospitalization ordered by Osvaldo Javier for Observation. Preliminary diagnosis are Hypokalemia, Weakness, Type 1 diabetes mellitus, Fever, unspecified. - Bed requested for Telemetry/MedSurg (observation). - Status is Observation. rv - Condition is Fair. - Problem is new. - Symptoms have improved. Signatures: Dispatcher [employer] EDMichael Cotton RN RN Ranjeet Morfin MD MD cha Vicente, Ronaldo RN RN rv Corrections: (The following items were deleted from the chart) :28 00:23 Hospitalization Ordered by Osvaldo Javier MD for Observation. Preliminary sg diagnosis is Hypokalemia; Weakness; Type 1 diabetes mellitus; Fever, unspecified. Bed requested for Telemetry/MedSurg (observation). Status is Observation. Condition is Fair. Problem is new. Symptoms have improved. lucio 04:07 01:28 11/28/2019 00:23 Hospitalization Ordered by Osvaldo Javier MD for Observation. rv Preliminary diagnosis is Hypokalemia; Weakness; Type 1 diabetes mellitus; Fever, unspecified. Bed requested for Telemetry/MedSurg (observation). Status is Observation. Condition is Fair. Problem is new. Symptoms have improved. sg
[2019-11-28] MEDS ORDERED: NS KCL 20MEQ 1,000 ML IV ONE (00:36)
[2019-11-28] MEDS ORDERED: POTASSIUM 25 MEQ EFFERV TAB ONE (00:36)
[2019-11-28] MEDS ORDERED: ONDANSETRON 4 MG/2 ML VIAL IV PRN (01:41)
[2019-11-28] MEDS ORDERED: ACETAMINOPHEN 500 MG TAB PO PRN (01:41)
[2019-11-28] MEDS ORDERED: AZITHROMYCIN IV 500 MG in NA CHLORIDE 0.9% 250 ML IVPB SCH ×2 (02:00→09:00)
[2019-11-28] MEDS ORDERED: NA CHLORIDE 0.9% 1,000 ML IV SCH (02:00)
[2019-11-28 02:02] LABS: Urine Bacteria <20 /HPF (<20); Urine RBC NONE SEEN /HPF (NONE SEEN); Urine Yeast FEW (NONE SEEN)
[2019-11-28 02:03] LABS: Urine Culture Reflex Order NOT NEEDED
[2019-11-28 02:53] LABS: Urine Blood TRACE (NEG); Urine Glucose 2+ (NEG); Urine Protein TRACE (NEG); Urine Specific Gravity 1.015 (1.005-1.030)
[2019-11-28] MEDS ORDERED: NA CHLORIDE 0.9% 250 ML ONE (04:20)
[2019-11-28] MEDS ORDERED: AZITHROMYCIN 500 MG INJ IVPB ONE (04:20)
[2019-11-28] MEDS: METHYLPREDNISOLONE 125 MG INJ IV SCH ×2 (05:10→12:08)
[2019-11-28 05:49] VITALS: BMI 30.2
[2019-11-28 06:03] LABS: Absolute Lymphocytes (CBC) 1.4 K/uL (0.7-4.9); Basophils % 0.5 % (0-1.3); Hematocrit 41.1 % (36.0-45.0); Lymphocytes % 24.9 % (15.3-44.8); MPV 8.9 fL (7.6-11.3); RBC Red Blood Cell Count 4.76 M/uL (3.86-4.86)
[2019-11-28 06:04] LABS: BUN Blood Urea Nitrogen 7 mg/dL (7-18); Bicarbonate 25 mmol/L (21-32); Glucose Level 158 mg/dL (74-106); Magnesium 1.9 mg/dL (1.8-2.4); Phosphorus 2.5 mg/dL (2.5-4.9); Potassium 3.2 mmol/L (3.5-5.1); Sodium Level 138 mmol/L (136-145)
--- NOTE | 2019-11-28 07:36 | P.HP ---
Certification for Inpatient Patient admitted to: Observation With expected LOS: <2 Midnights Patient will require the following post-hospital care: None Practitioner: I am a practitioner with admitting privileges, knowledge of patient current condition, hospital course, and medical plan of care. Services: Services provided to patient in accordance with Admission requirements found in Title 42 Section 412.3 of the Code of Federal Regulations Patient History Date of Service: 11/28/19 Reason for admission: Generalized weakness and shortness of breath History of Present Illness: Patient is a 74-year-old female came to the hospital with complaints of generalized weakness. Patient's has been febrile at home. She states her strength has been very poor. She came into the emergency room for further evaluation. In the emergency room patient's labs were unremarkable. She did have complaints of upper respiratory symptoms. Decision was made to test COVID- 19. Patient was given IV hydration and she states she has started to feel better. Will get her up and ambulate her with nursing. If she has any difficulty will get physical therapy consultation. Also strict blood sugar control. Allergies No Known Drug Allergies Allergy (Verified 11/28/19 04:28) Unknown - Past Medical/Surgical History Has patient received pneumonia vaccine in the past: Yes Diabetic: Yes -: HTN -: IDDM -: CVA 2009 -: Cholecystectomy -: Hysterectomy -: Back SX 1989 -: blood clots in leg removed - Family History Brother Medical History: Diabetes Sister Medical History: Diabetes - Social History Smoking Status: Never smoker Alcohol use: No CD- Drugs: No Caffeine use: Yes Place of Residence: Home Review of Systems 10-point ROS is otherwise unremarkable Physical Examination - Vital Signs Temperature: 98.6 F Blood Pressure: 154/77 Pulse: 83 Respirations: 17 Pulse Ox (%): 100 - Physical Exam General: Alert, In no apparent distress, Oriented x3 HEENT: Atraumatic, PERRLA, Mucous membr. moist/pink, EOMI, Sclerae nonicteric Neck: Supple, 2+ carotid pulse no bruit, No LAD, Without JVD or thyroid abnormality Respiratory: Clear to auscultation bilaterally, Normal air movement Cardiovascular: Regular rate/rhythm, Normal S1 S2, No murmurs Gastrointestinal: Normal bowel sounds, Soft and benign, Non-distended, No tenderness Musculoskeletal: No clubbing, No swelling, No tenderness Integumentary: No rashes Neurological: Normal speech, Normal tone, Sensation intact, Cranial nerves 3-12 intact, Normal affect, Abnormal gait, Abnormal strength Lymphatics: No axilla or inguinal lymphadenopathy - Studies Laboratory Data (last 24 hrs) 11/27/19 22:45: PT 11.8, INR 1.00, APTT 28.8 11/27/19 22:45: WBC 6.0, Hgb 14.2, Hct 43.2, Plt Count 238 11/27/19 22:45: Sodium 133 L, Potassium 2.9 L*, BUN 10, Creatinine 0.75, Glucose 229 H, Total Bilirubin 0.8, AST 21, ALT 21, Alkaline Phosphatase 76, Amylase 19 L, Lipase 82 Microbiology Data (last 24 hrs): 11/27/19 22:45 Nasopharnyx Influenza Type A Antigen Screen - Final 11/27/19 22:45 Nasopharnyx Influenza Type B Antigen Screen - Final Assessment & Plan - Problems (Diagnosis) (1) Fever Current Visit: Yes Status: Acute (2) TIA (transient ischemic attack) Current Visit: No Status: Acute Qualifiers: (3) Weakness generalized Onset Date: 04/11/16 Current Visit: No Status: Acute (4) Essential hypertension Current Visit: No Status: Chronic (5) Type 2 diabetes mellitus Current Visit: No Status: Chronic - Plan Plan: 1. Out of bed and ambulate 2. Gentle hydration 3. Supplement potassium 4. COVID-19 testing 5. Physical therapy evaluation and strains is not improving 6. GI and DVT prophylaxis Discharge Plan: Home Plan to discharge in: Greater than 2 days - Advance Directives Does patient have a Living Will: No Does patient have a Durable POA for Healthcare: No - Code Status/Comfort Care Code Status Assessed: Yes Code Status: Full Code Critical Care: No Time Spent Managing PTS Care (In Minutes): 45
--- NOTE | 2019-11-28 07:53 | RAD REPORT ---
EXAM DESCRIPTION: Wade Single View11/27/2019 11:17 pm CLINICAL HISTORY: Cough COMPARISON: 2018 FINDINGS: The lungs appear clear of acute infiltrate. The heart is normal size IMPRESSION: No acute abnormalities displayed
[2019-11-28] MEDS ORDERED: POTASSIUM CL SA 10 MEQ TAB PO ONE (08:00)
[2019-11-28] MEDS ORDERED: GLUCAGON 1 MG/VIAL IM PRN (08:03)
[2019-11-28] MEDS ORDERED: D50W 25 GM/50 ML SYRINGE/VIAL IV PRN (08:03)
[2019-11-28] MEDS: POTASS/SODIUM PHOSPHATE 1 PKT POWD.PACK PO SCH ×3 (08:19→10:13)
[2019-11-28] MEDS ORDERED: CEFTRIAXONE/SWI 1gm 1 GM/10 ML SYR IVP SCH (09:00)
[2019-11-28] MEDS ORDERED: ENOXAPARIN 40 MG/0.4 ML SQ SCH (09:00)
[2019-11-28 10:26] VITALS: O2SAT 93
[2019-11-28] MEDS ORDERED: INSULIN -REGULAR HUMAN 50 UNIT/0.5 ML ML SQ SCH (11:30)
[2019-11-28 12:42] VITALS: BP 141/66; TEMP 98.2
--- NOTE | 2019-11-28 13:00 | P.CNS ---
Date of Consult: 11/28/19 Reason for Consult: Schneider virus is positive Chief Complaint: Generalized weakness and shortness of breath History of Present Illness: Patient is 74 years of age feeling weak febrile the past 4 days admitted from home her son was recently diagnosed to with schneider virus infection she is doing well right now denies any fever chills as been ambulating eating and drinking well no nausea vomiting or diarrhea denies any shortness of breath vital signs are all satisfactory Allergies No Known Drug Allergies Allergy (Verified 11/28/19 04:28) Unknown - Past Medical/Surgical History Diabetic: Yes -: HTN -: IDDM -: CVA 2009 -: Cholecystectomy -: Hysterectomy -: Back SX 1989 -: blood clots in leg removed - Family History Brother Medical History: Diabetes Sister Medical History: Diabetes - Social History Smoking Status: Never smoker Alcohol use: No CD- Drugs: No Caffeine use: Yes Place of Residence: Home Review of Systems 10-point ROS is otherwise unremarkable General: Weakness Physical Examination Temp Pulse Resp BP Pulse Ox 98.2 F 76 18 141/66 H 94 11/28/19 12:00 11/28/19 12:00 11/28/19 12:00 11/28/19 12:00 11/28/19 12:00 General: Other (Examination deferred) Laboratory Data (last 24 hrs) 11/27/19 22:45: PT 11.8, INR 1.00, APTT 28.8 11/27/19 22:45: WBC 6.0, Hgb 14.2, Hct 43.2, Plt Count 238 11/27/19 22:45: Sodium 133 L, Potassium 2.9 L*, BUN 10, Creatinine 0.75, Glucose 229 H, Total Bilirubin 0.8, AST 21, ALT 21, Alkaline Phosphatase 76, Amylase 19 L, Lipase 82 - Problems (1) Coronavirus infection, unspecified Status: Acute Plan: Pt is 74 yrs of age AW fever and weekness. Symptoms of COVID infevtion. son pos for COVID. NE of ALi. Labs rev. CXry clear . O2 sat satisfactory. D/C home
--- NOTE | 2019-11-28 13:05 | P.DS ---
Admission Date: 11/28/19 Discharge Date: 11/28/19 Primary Care Provider: unknown Disposition: ROUTINE DISCHARGE Discharge Condition: GOOD Reason for Admission: Generalized weakness and shortness of breath Consultations: Pulmonary-Dr. Burton Procedures: Chest x-ray: No acute changes noted Medical problem list: Fatigue secondary to COVID 19 infection-upper respiratory infection Diabetes mellitus type 2 Hypertension Brief History of Present Illness: 74-year-old female with diabetes, hypertension. Patient presented with fatigue. Son positive for COVID 19. Patient was admitted for further evaluation. No nausea, vomiting or significant shortness of breath noted. Hospital Course: 74-year-old female with history of diabetes and hypertension. Patient evaluated for fatigue. Chest x-ray unremarkable. Patient without significant symptoms. No hypoxia noted. Son was positive for COVID 19 pneumonia. Patient was monitored and observed. Patient has done well. Patient seen and evaluated by pulmonology. No intervention recommended at this time. Pulmonology felt patient can go home. Patient may take Tylenol as needed for fever and Mucinex as needed for congestion. No need for antibiotics or steroids at this time. Recommend follow up with PCP in 1-2 weeks to follow up this hospitalization. CDC guidelines for COVID 19 infection will be provided. Infection control will contact Health Department so the patient can be followed closely. Recommend read testing in 14 days. Education on COVID will be provided. Patient may continue her home medications. Follow up with PCP to further monitor and address. Vital Signs/Physical Exam: Temp Pulse Resp BP Pulse Ox 98.2 F 76 18 141/66 H 94 11/28/19 12:00 11/28/19 12:00 11/28/19 12:00 11/28/19 12:00 11/28/19 12:00 General: Alert, Other (Exam limited due to positive infection for COVID) Other Physical/Emotional Findings: Full exam done earlier today by admitting physician. Nurses report vital signs stable. Laboratory Data at Discharge: WBC 5.6 K/uL (4.3-10.9) 11/28/19 05:09 Hgb 13.7 g/dL (12.0-15.0) 11/28/19 05:09 Hct 41.1 % (36.0-45.0) 11/28/19 05:09 Plt Count 223 K/uL (152-406) 11/28/19 05:09 PT 11.8 SECONDS (9.5-12.5) 11/27/19 22:45 INR 1.00 11/27/19 22:45 APTT 28.8 SECONDS (24.3-36.9) 11/27/19 22:45 Sodium 138 mmol/L (136-145) 11/28/19 05:09 Potassium 3.2 mmol/L (3.5-5.1) L 11/28/19 05:09 BUN 7 mg/dL (7-18) 11/28/19 05:09 Creatinine 0.55 mg/dL (0.55-1.3) 11/28/19 05:09 Glucose 158 mg/dL (74-106) H 11/28/19 05:09 Phosphorus 2.5 mg/dL (2.5-4.9) 11/28/19 05:09 Magnesium 1.9 mg/dL (1.8-2.4) 11/28/19 05:09 Total Bilirubin 0.8 mg/dL (0.2-1.0) 11/27/19 22:45 AST 21 U/L (15-37) 11/27/19 22:45 ALT 21 U/L (12-78) 11/27/19 22:45 Alkaline Phosphatase 76 U/L (45-117) 11/27/19 22:45 Amylase 19 U/L (25-115) L 11/27/19 22:45 Lipase 82 U/L (73-393) 11/27/19 22:45 Patient Discharge Instructions: 1. Patient to be discharge home. Recommend fo llow up with PCP in 1 week to follow up this hospitalization. 2. Fall precautions to be provided. 3. Pulmonology recommends no antibiotics or medications at this time. Patient may take over the counter Mucinex as needed for congestion. May take Tylenol as needed for fever. 4. Education on COVID infection will be provided. Infection control will contact health department to monitor patient. Recommend retesting in 14 days. Recommend CDC guidelines and recommendations. This will be provided at discharge. 5. Patient will continue current home medications. Recommend follow up with PCP to further monitor and address. Diet: ADA Activity: Fall precautions Time spent managing pt's care (in minutes): 55
== END 2019-11-28 13:53 | disposition home or self-care (01) ==
LOC: ER 21:14 → ERHOLD 11-28 02:20 → 4TH 11-28 03:56
PROVIDERS: ADMIT Hospitalist; ATTEND Hospitalist
DX: U07.1 COVID-19 (principal); J06.9 Acute upper respiratory infection, unspecified; E87.6 Hypokalemia; E11.9 Type 2 diabetes mellitus without complications; I10 Essential (primary) hypertension; E78.5 Hyperlipidemia, unspecified; R00.0 Tachycardia, unspecified; R94.31 Abnormal electrocardiogram [ECG] [EKG]; Z86.73 Personal history of transient ischemic attack (TIA), and cerebral infarction without residual deficits
CPT/HCPCS: 96365; 96361; 93005; 87040 ×2; 87088; 85025 ×2; 87086; 80048 ×2; 36415; 82150; 83735; 82550; 84100; 85610; 82947 ×2; 80076; 83605; 85730; 84484; 82553; 83690; 84145; 87804 ×2; 71045; 94760 ×2; 96375; 99285; U0002; J0456 ×2; J1650; J0696 ×2; J7030 ×4; J2930 ×2; G0378 ×2; 81003; 81015

== ENCOUNTER 2020-06-23 17:35 | Emergency (ER) | payer OTHER ==
--- OUTSIDE RECORDS SUMMARY | 2020-06-23 17:38 | XMS REPORT | Continuity of Care Document ---
:1945 Author Organization [facility] t Address [address] [place] [address] Care Team Providers Name Role Phone Connie ROBISON MD, A Primary Care Physician Mihai BENOIT Attending Clinician Problems This patient has no known problems. Allergies, Adverse Reactions, Alerts This patient has no known allergies or adverse reactions. Family History Family Member Diagnosis Comments Start Date Stop Date Source Natural brother Diabetes [facility] [place] Maternal grandmother Diabetes [place] [facility] Maternal grandmother Kidney disease [facility] Social History Social Habit Start Date Stop Date Quantity Comments Source Sex [facility]igned [facility] Tobacco use and 2019-06-15 2019-06-15 Never used [facility] [place] exposure 00:00:00 00:00:00 Alcohol intake 2019-06-15 2019-06-15 Current drinker [place] [facility] 00:00:00 00:00:00 of alcohol (finding) Alcohol Comment 2019-05-04 2019-05-04 monthly [facility] 00:00:00 00:00:00 Smoking Status Start Date Stop Date Source [facility] smoker [facility] Medications Ordered Filled Start Stop Current [...] 400 unit capsule gabapentin 2020-0 Yes 100mg [id number] Take 100 [place] (NEURONTIN) 1-08 [id number] mg by M ethodi 100 mg 11:40: [...] chest pain. diclofenac 2018-06- No Q.25D Apply [place] (VOLTAREN) 07-04 topically [place] 1 % gel 00:00: 23:59 4 (four) st 00 :00 times a day. blood sugar Yes 1{strip 1 strip by [facility] 01-04 } Other Methodi strips 00:00: route. st (glucose 00 blood) strip test strips Procedures This patient has no known procedures. Plan of Care Planned Activity Planned Date Details Comments Source Future Scheduled 2020-01-07 INFLUENZA VACCINE [place] [facility] Test 00:00:00 [code = INFLUENZA VACCINE] Future Scheduled 2012 65+ PNEUMOCOCCAL [place] [facility] Test 00:00:00 VACCINE (1 of 1 - PPSV23) [code = 65+ PNEUMOCOCCAL VACCINE (1 of 1 - PPSV23)] Future Scheduled 1997 BREAST CANCER [facility]ist Test 00:00:00 SCREENING [code = BREAST CANCER SCREENING] Future Scheduled 1997 COLONOSCOPY SCREENING [place] [facility] Test 00:00:00 [code = COLONOSCOPY SCREENING] Future Scheduled 1997 SHINGLES VACCINES (#1) [place] [facility] Test 00:00:00 [code = SHINGLES VACCINES (#1)] Future Scheduled 1963 COVID-19 VACCINE (1 of [place] [facility] Test 00:00:00 2) [code = COVID-19 VACCINE (1 of 2)] Future Scheduled 1957 DIABETES: RETINAL EYE [place] [facility] Test 00:00:00 EXAM [code = DIABETES: RETINAL EYE EXAM] Future Scheduled 1957 DIABETIC FOOT EXAM [place] [facility] Test 00:00:00 [code = DIABETIC FOOT EXAM] Future Scheduled 1955 URINE MICROALBUMIN [place] [facility] Test 00:00:00 [code = URINE MICROALBUMIN] Encounters Start End Encounter Admission Attending Care Care Encounter Source Date/Time Date/Time Type Type Clinicians Facility Department ID 2020-03-15 2020-03-15 Telephone Mihai [facility] [id number] 00:00:00 00:00:00 Judy Rm [id number] [place] [id number] [facility] [id number] [address] 2020-03-09 2020-03-09 [id number] 00:00:00 00:00:00 [place] [facility] [id number] [place] [id number] [facility] [id number] [address] 2020-03-07 2020-03-07 Office [id number] 97 08:56:52 09:16:52 Visit [place] [id number] [place] [id number] [phone] [address] Results This patient has no known results.
--- OUTSIDE RECORDS SUMMARY | 2020-06-23 17:38 | XMS REPORT | Clinical Summary ---
:1945 Author Organization [facility] Address [address] [place] [address] Care Team Providers Name Role Phone Connie ROBISON MD, Michael Fuentes Primary Care Provider [phone] Allergies No Known Active Allergies Medications Medication Sig Dispensed Refills Start [...] mouth daily. tablet cholecalciferol, Take 1 capsule 0 Active vitamin D3, (VITAMIN by mouth daily. D3) 400 unit capsule gabapentin [...] (five) minutes as needed for chest pain. blood sugar 1 strip by Other 0 01/04/2018 Active diagnostic strips route. (glucose blood) strip test strips diclofenac (VOLTAREN) Apply topically 3 Tube 5 05/04/2019 1 07/03/2019 1 % gel 4 (four) times a day. Active Problems Not on file Surgical History Surgery Date Site/Laterality Comments ABDOMINAL SURGERY BACK SURGERY GALLBLADDER SURGERY STENT TUBAL LIGATION Medical History Medical History Date Comments Anemia Anxiety Arthritis Coronary artery disease Deep vein thrombosis (HCC) Depression Diabetes mellitus (HCC) Headache Heart disease Hypertension Stroke (HCC) Visual impairment Family History Medical History Relation Name Comments Diabetes Brother Diabetes Maternal Grandmother Kidney disease Maternal Grandmother Relation Name Status Comments Brother Maternal Grandmother Social History Tobacco Use Types Packs/Day Years Used Date Never Smoker Smokeless Tobacco: Never Used Alcohol Use Drinks/Week oz/Week Comments Yes 1 Cans of beer 1.0 monthly Sex Assigned at Date Recorded Not on file Last Filed Vital Signs Not on file Plan of Treatment Health Maintenance Due Date Last Done Comments DIABETES: RETINAL EYE EXAM 1957 DIABETIC FOOT EXAM 1957 URINE MICROALBUMIN 1957 COVID-19 VACCINE (1 of 2) 1963 BREAST CANCER SCREENING 1997 COLONOSCOPY SCREENING 1997 SHINGLES VACCINES (#1) 1997 65+ PNEUMOCOCCAL VACCINE (1 of 1 - PPSV23) 2012 INFLUENZA VACCINE 01/07/2020 Results Not on fileafter 06/23/2019 Advance Directives For more information, please contact: [phone] Type Date Recorded Patient Tandem Mill Sticker Explanati on Advance Directives, Living Will and Medical Power of Kn[employer] Press Hand
--- NOTE | 2020-06-23 19:54 | RAD REPORT ---
EXAM DESCRIPTION: RAD - Hip Right 2 View - 06/23/2020 7:30 pm CLINICAL HISTORY: PAIN Fall, pain COMPARISON: No comparisons FINDINGS: The bones are diffusely osteopenic. Cortical irregularity is seen at the junction of the h ead and neck of the femur suspicious for subtle impacted fracture. Recommend CT right hip for further evaluation.
[2020-06-23] MEDS ORDERED: MORPHINE 2 MG/ML SYR ONE ×2 (20:45→23:43)
[2020-06-23] MEDS ORDERED: NA CHLORIDE 0.9% 250 ML ONE (20:45)
--- NOTE | 2020-06-23 21:25 | RAD REPORT ---
EXAM DESCRIPTION: RAD - Knee Right 3 View - 06/23/2020 9:14 pm CLINICAL HISTORY: fall;Pain COMPARISON: No comparisons FINDINGS: No acute fracture or dislocation is seen. No significant joint effusion.
[2020-06-23 23:15] LABS: Absolute Lymphocytes (CBC) 2.5 K/uL (0.7-4.9); Basophils % 0.6 % (0-1.3); Hematocrit 35.7 % (36.0-45.0); Lymphocytes % 30.6 % (15.3-44.8); RBC Red Blood Cell Count 4.33 M/uL (3.86-4.86)
[2020-06-23 23:27] LABS: Protime INR 0.98
[2020-06-23 23:45] LABS: ALT/SGPT 15 U/L (12-78); AST/SGOT 14 U/L (15-37); Albumin 3.2 g/dL (3.4-5.0); Alkaline Phosphatase 84 U/L (45-117); BUN Blood Urea Nitrogen 7 mg/dL (7-18); Bicarbonate 27 mmol/L (21-32); Bilirubin Direct 0.2 mg/dL (0-0.2); Bilirubin Total 0.8 mg/dL (0.2-1.0); Glucose Level 236 mg/dL (74-106); Magnesium 1.9 mg/dL (1.8-2.4); NT PRO-BNP 235 pg/mL (<125); Potassium 3.7 mmol/L (3.5-5.1); Protein, Total 7.2 g/dL (6.4-8.2); Sodium Level 137 mmol/L (136-145); Troponin (Emerg Dept Use Only) < 0.02 ng/mL (0.0-0.045)
--- NOTE | 2020-06-24 00:07 | ER ---
Nurse's Notes [facility] Name: Allyssa Shelby Age: 75 yrs Sex: Female : 1945 Arrival Date: 06/23/2020 Time: 17:40 Bed 18 Private MD: Diagnosis: Fracture of unspecified part of neck of right femur Presentation: 06/23 18:05 Chief complaint: Patient states: Fell while trying to get out of her wheelchair at home ll1 yesterday at 1830. No head trauma. Landed on R hip, R hip pain since. Worse pain with walking. Coronavirus screen: Client denies travel out of the [place] in the last 14 days. At this time, the client does not indicate any symptoms associated with coronavirus-19. Ebola Screen: Patient denies travel to an Ebola-affected area in the 21 days before illness onset. Initial Sepsis Screen: Does the patient meet any 2 criteria? No. Patient's initial sepsis screen is negative. Does the patient have a suspected source of infection? Yes: Bone or joint infection. Risk Assessment: Do you want to hurt yourself or someone else? Patient reports no desire to harm self or others. Onset of symptoms was June 22, 2020. 18:05 Method Of Arrival: Wheelchair ll1 18:05 Acuity: JANICE 3 ll1 Triage Assessment: 18:07 General: Appears in no apparent distress. Behavior is calm, cooperative, appropriate ll1 for age. Pain: Complains of pain in R hip Quality of pain is described as aching, Aggravated by increased activity. Musculoskeletal: Circulation, motion, and sensation intact. Capillary refill < 3 seconds, Reports pain in R hip. Injury Description: Bruise fall from sitting. Historical: - Allergies: 18:07 No Known Allergies; ll1 - PMHx: 18:07 Diabetes - IDDM; Hyperlipidemia; Hypertension; ll1 - PSHx: 18:07 Appendectomy; Cholecystectomy; ll1 - Immunization history:: Flu vaccine is up to date. - Social history:: Smoking status: Patient denies any tobacco usage or history of. Screenin:30 Abuse screen: Denies threats or abuse. Nutritional screening: No deficits noted. vg1 Tuberculosis screening: No symptoms or risk factors identified. Fall Risk Fall in past 12 months (25 points). No secondary diagnosis (0 pts). IV access (20 points). Ambulatory Aid- None/Bed Rest/Nurse Assist (0 pts). Gait- Weak (10 pts.). Mental Status- Oriented to own ability (0 pts). Total Gamino Fall Scale indicates High Risk Score (45 or more points). Fall prevention measures have been instituted. Side Rails Up X 2 Placed Close to Nursing Station. Primary Survey: 20:30 NO uncontrolled hemorrhage observed. Breathing/Chest: Respiratory pattern: regular, vg1 Respiratory effort: spontaneous. Disability Alert. Assessment: 20:30 General: Appears in no apparent distress. comfortable, Behavior is calm, cooperative. vg1 Pain: Complains of pain in right leg and right hip Pain currently is 8 out of 10 on a pain scale. Neuro: Level of Consciousness is awake, alert, obeys commands, Oriented to person, place, time, situation. Cardiovascular: Patient's skin is warm and dry. Pulses are palpable in right dorsalis pedis artery and left dorsalis pedis artery. Respiratory: Airway is patent Respiratory effort is even, unlabored. GI: No signs and/or symptoms were reported involving the gastrointestinal system. : No signs and/or symptoms were reported regarding the genitourinary system. EENT: No signs and/or symptoms were reported regarding the EENT system. Derm: Skin is intact, is healthy with good turgor. Musculoskeletal: Range of motion: limited in right hip. 21:54 Reassessment: Patient appears in no apparent distress at this time. Patient and/or vg1 family updated on plan of care and expected duration. Pain level reassessed. Patient is alert, oriented x 3, equal unlabored respirations, skin warm/dry/pink. Patient stated pain level has decreased to 4/10. States pain becomes worse when repositioning. 23:30 Reassessment: Patient appears in no apparent distress at this time. Patient and/or vg1 family updated on plan of care and expected duration. Pain level reassessed. Patient is alert, oriented x 3, equal unlabored respirations, skin warm/dry/pink. 17 00:17 Reassessment: Patient reports pain with activity alert and oriented x3, not in any fv distress.. 02:35 Reassessment: Patient sleeping no apparent distress at this time, Pain level fv reassessed, reports pain with activity. 03:35 Reassessment: Patient for transfer to [place] reports pain 7/10 when moving informed fv Dr. Coronado verbal order to give 2 mg Morphine IV, medicated. Vital Signs: 06/23 18:05 BP 144 / 60; Pulse 86; Resp 16; Temp 99.2; Pulse Ox 99% ; Weight 65.77 kg; Height 5 ft. ll1 2 in. (157.48 cm); Pain 5/10; 20:00 BP 146 / 69; Pulse 79; Resp 18; Pulse Ox 98% on R/A; vg1 21:00 BP 164 / 70; Pulse 75; Resp 18; Pulse Ox 99% on R/A; vg1 22:00 BP 164 / 67; Pulse 73; Resp 16; Pulse Ox 99% on R/A; vg1 23:00 BP 145 / 68; Pulse 82; Resp 16; Pulse Ox 98% on R/A; vg1 06/24 00:00 BP 145 / 68; Pulse 85; Resp 18; Pulse Ox 98% ; fv 01:00 BP 149 / 56; Pulse 78; Resp 18; Pulse Ox 95% ; fv 02:00 BP 133 / 63; Pulse 75; Pulse Ox 98% ; fv 06/23 18:05 Body Mass Index 26.52 (65.77 kg, 157.48 cm) ll1 Eckert Coma Score: 06/23 20:35 Eye Response: spontaneous(4). Verbal Response: oriented(5). Motor Response: obeys vg1 commands(6). Total: 15. ED Course: 17:40 Patient arrived in ED. rg4 18:07 Triage completed. ll1 18:07 Arm band placed on. ll1 19:28 Hip Right 2 View XRAY In Process Unspecified. EDMS 19:47 Ranjeet Waller PA is PHCP. cp 19:47 Richard Coronado MD is Attending Physician. cp 20:22 Ignacia Ritchie, RONEN is Primary Nurse. vg1 20:24 Warm blanket given. Verbal reassurance given. Pulse ox on. NIBP on. jp3 20:24 Inserted saline lock: 20 gauge in right forearm, using aseptic technique. Patient jp3 maintains SpO2 saturation greater than 95% on room air. 20:30 Patient has correct armband on for positive identification. Bed in low position. Call vg1 light in reach. Side rails up X2. 21:15 XRAY Knee RIGHT 3 view In Process Unspecified. EDMS 21:50 Patient moved back from CT. vg1 22:08 CT Lumbar Spine Wo Con In Process Unspecified. EDMS 22:08 CT Pelvis wo Cont In Process Unspecified. EDMS 23:25 XRAY Chest (1 view) In Process Unspecified. EDMS 23:57 Initial lab(s) drawn, by me, sent to lab. EKG done, by ED staff, reviewed by Ranjeet clemens PA. José cath inserted, using sterile technique, 16 Fr., by me, balloon inflated, to gravity drainage, returned clear yellow urine. Patient tolerated well. 06/24 00:06 initiated a transfer with Edna Hanson from [facility]. [facility] 02:14 administrative approval given by Edna Hanson/ patient has been accepted to [address] [place] bed 1634/ Dr. Mercer has accepted the patient in transfer/ report to be called to [phone]. 02:34 Urine Microscopic Only Sent. fv Administered Medications: 06/23 20:36 Drug: NS 0.9% 250 ml Route: IV; Rate: bolus; Site: right forearm; vg1 20:37 Drug: morphine 2 mg Route: IVP; Site: right forearm; vg1 23:37 Drug: morphine 2 mg Route: IVP; Site: right forearm; vg1 06/24 03:35 Drug: morphine 2 mg Route: IVP; Site: right antecubital; fv 03:40 CANCELLED (Duplicate Order): morphine 2 mg IVP once; (PAIN>8) RASS on ADMN: Combtv4, fv Very Agttd3, Agttd2, Rstlss1, AlertClm0, Drwsy-1, LtSdtn-2, ModSdtn-3, DpSdtn-4, UnArsble-5 x2 Outcome: 00:07 ER care complete, transfer ordered by . cp 03:38 Transferred by ground EMS to [facility]. fv 03:38 Condition: stable 03:38 Instructed on the need for transfer. 03:40 Patient left the ED. lp1 Signatures: Dispatcher [employer] EDNina Yoon RN RN lp1 Ranjeet Waller PA PA cp Vergel De Dio, Flomeliza, RN RN fv Gerson Real, WAREHOUSE TRAINER WAREHOUSE TRAINER pm1 Anabella Ritchie rg4 Orlando Escalante mw2 Kleber Saldivar jp3 Ignacia Ritchie RN RN vg1 Nia Peres RN RN ll1 Corrections: (The following items were deleted from the chart) 00:20 00:16 Reassessment: fv fv 02:04 00:21 BP 145 / 68; Pulse 85bpm; Resp 18bpm; Pulse Ox 98%; fv fv
--- NOTE | 2020-06-24 00:08 | EDPHYS ---
Physician Documentation [facility] Name: Allyssa Shelby Age: 75 yrs Sex: Female : 1945 Arrival Date: 06/23/2020 Time: 17:40 Bed 18 Private MD: ED Physician Richard Coronado HPI: 06/23 18:17 This 75 yrs old Female presents to ER via Wheelchair with complaints of Fall pm1 Injury. 18:17 Details of fall: The patient fell from an upright position, while standing. Onset: The pm1 symptoms/episode began/occurred yesterday. Associated injuries: The patient sustained right hip. Severity of symptoms: in the emergency department the symptoms are unchanged. The patient has not experienced similar symptoms in the past. Patient was sitting on the edge of her bed and stood up to quickly and lost her balance. Landed on her right hip. No headache, neck pain, head injury, LOC. Patient reports pain with walking since fall. Historical: - Allergies: 18:07 No Known Allergies; ll1 - PMHx: 18:07 Diabetes - IDDM; Hyperlipidemia; Hypertension; ll1 - PSHx: 18:07 Appendectomy; Cholecystectomy; ll1 - Immunization history:: Flu vaccine is up to date. - Social history:: Smoking status: Patient denies any tobacco usage or history of. ROS: 18:25 Constitutional: Negative for body aches, chills, fever, poor PO intake. cp 18:25 Eyes: Negative for injury, pain, redness, and discharge. cp 18:25 Neck: Negative for pain with movement, pain at rest, stiffness. 18:25 Cardiovascular: Negative for chest pain, palpitations. 18:25 Respiratory: Negative for cough, shortness of breath, wheezing. 18:25 Abdomen/GI: Negative for abdominal pain, nausea, vomiting, and diarrhea. 18:25 Back: Negative for decreased range of motion. 18:25 MS/extremity: Positive for decreased range of motion, pain, tenderness, of the right hip and upper leg, Negative for deformity, paresthesias. 18:25 Neuro: Negative for altered mental status, headache, loss of consciousness, syncope, weakness. 18:25 All other systems are negative. Exam: 18:30 Constitutional: The patient appears in no acute distress, alert, awake, cp non-diaphoretic, non-toxic, well developed, well nourished, uncomfortable. 18:30 Head/Face: Normocephalic, atraumatic. cp 18:30 Eyes: Periorbital structures: appear normal, Pupils: equal, round, and reactive to light and accomodation, Extraocular movements: intact throughout, Conjunctiva: normal, no exudate, no injection, Sclera: no appreciated abnormality, Lids and lashes: appear normal, bilaterally. 18:30 ENT: External ear(s): are unremarkable, Nose: is normal, Posterior pharynx: Airway: no evidence of obstruction, patent. 18:30 Neck: C-spine: vertebral tenderness, is not appreciated, crepitus, is not appreciated, ROM/movement: is normal, is supple, without pain, no range of motions limitations, no nuchal rigidity. 18:30 Chest/axilla: Inspection: normal, Palpation: is normal, no crepitus, no tenderness. 18:30 Cardiovascular: Rate: normal, Rhythm: regular, Edema: is not appreciated, JVD: is not appreciated. 18:30 Respiratory: the patient does not display signs of respiratory distress, Respirations: normal, no use of accessory muscles, no retractions, labored breathing, is not present, Breath sounds: are clear throughout, no decreased breath sounds. 18:30 Abdomen/GI: Inspection: abdomen appears normal, Bowel sounds: active, all quadrants, Palpation: abdomen is soft and non-tender, in all quadrants. 18:30 Back: ROM is normal. 18:30 Musculoskeletal/extremity: Extremities: grossly normal except: noted in the right hip and right knee: pain, tenderness, ROM: limited passive range of motion due to pain, in the right hip and right knee, Pulses: noted to be 2+ in the right dorsalis pedis artery, the right leg Sensation intact. 18:30 Neuro: Orientation: to person, place \T\ time. Mentation: is normal, Motor: moves all fours, strength is normal. 23:20 ECG was reviewed by the Attending Physician. cp Vital Signs: 18:05 BP 144 / 60; Pulse 86; Resp 16; Temp 99.2; Pulse Ox 99% ; Weight 65.77 kg; Height 5 ft. ll1 2 in. (157.48 cm); Pain 5/10; 20:00 BP 146 / 69; Pulse 79; Resp 18; Pulse Ox 98% on R/A; vg1 21:00 BP 164 / 70; Pulse 75; Resp 18; Pulse Ox 99% on R/A; vg1 22:00 BP 164 / 67; Pulse 73; Resp 16; Pulse Ox 99% on R/A; vg1 23:00 BP 145 / 68; Pulse 82; Resp 16; Pulse Ox 98% on R/A; vg1 06/24 00:00 BP 145 / 68; Pulse 85; Resp 18; Pulse Ox 98% ; fv 01:00 BP 149 / 56; Pulse 78; Resp 18; Pulse Ox 95% ; fv 02:00 BP 133 / 63; Pulse 75; Pulse Ox 98% ; fv 06/23 18:05 Body Mass Index 26.52 (65.77 kg, 157.48 cm) ll1 Ashby Coma Score: 06/23 20:35 Eye Response: spontaneous(4). Verbal Response: oriented(5). Motor Response: obeys vg1 commands(6). Total: 15. MDM: 20:13 Patient medically screened. cp 21:00 Differential diagnosis: contusion, fracture, multiple trauma. cp 23:10 Data reviewed: vital signs, nurses notes, radiologic studies, CT scan, plain films. 23:10 Counseling: I had a detailed discussion with the patient and/or guardian regarding: the historical points, exam findings, and any diagnostic results supporting the discharge/admit diagnosis, radiology results. Response to treatment: the patient's symptoms have markedly improved after treatment. 23:12 Physician consultation: Eusebio Ritter MD was called at 23:12, left message on voicemail. 23:51 Physician consultation: Eusebio Ritter MD was called at 23:51, left message on voicemail. 06/24 01:30 Physician consultation: was contacted at 01:30, regarding regarding transfer, to [facility]. patient's condition, DR Mercer, hospitalist, will be the accepting physician. 06/23 23:01 Order name: Basic Metabolic Panel; Complete Time: 23:49 06/23 23:49 Interpretation: Normal except: GLUC 236; CRE 0.39. 06/23 23:01 Order name: CBC with Diff; Complete Time: 23:49 06/23 23:49 Interpretation: Normal except: HGB 11.8; HCT 35.7; MCV 82.5. 06/23 23:01 Order name: LFT's; Complete Time: 23:49 cp 06/23 23:01 Order name: Magnesium; Complete Time: 23:49 cp 06/23 23:01 Order name: NT PRO-BNP; Complete Time: 23:49 06/23 23:01 Order name: PT-INR; Complete Time: 23:49 06/23 18:11 Order name: Hip Right 2 View XRAY; Complete Time: 20:01 pm1 06/23 20:04 Order name: CT Lumbar Spine Wo Con cp 06/23 23:01 Order name: Troponin (emerg Dept Use Only); Complete Time: 23:49 06/24 02:02 Order name: Urine Microscopic Only 06/24 02:23 Order name: Urine Dipstick--Ancillary (enter results) [facility] 06/24 03:06 Order name: Urine Culture [facility] 06/24 03:37 Order name: SARS-COV-2 RT PCR [facility] 06/23 20:04 Order name: CT Pelvis wo Cont 06/23 20:04 Order name: IV; Complete Time: 20:24 06/23 20:43 Order name: XRAY Knee RIGHT 3 view; Complete Time: 23:49 06/23 23:50 Interpretation: Report reviewed. 06/23 23:01 Order name: XRAY Chest (1 view) 06/23 23:01 Order name: EKG; Complete Time: 23:02 06/23 23:01 Order name: Cardiac monitoring; Complete Time: 23:20 06/23 23:01 Order name: EKG - Nurse/Tech; Complete Time: 23:20 06/23 23:01 Order name: Labs collected and sent; Complete Time: 23:20 06/23 23:01 Order name: O2 Per Protocol; Complete Time: 23:02 06/23 23:01 Order name: O2 Sat Monitoring; Complete Time: 23:02 06/23 23:01 Order name: José; Complete Time: 23:53 06/24 02:02 Order name: Urine Dipstick-Ancillary (obtain specimen); Complete Time: 02:34 cp EC/16 23:20 Rate is 75 beats/min. Rhythm is regular. VT interval is normal. QRS interval is normal. cp QT interval is normal. T waves are Inverted in lead aVR. Interpreted by me. Reviewed by me. Administered Medications: 20:36 Drug: NS 0.9% 250 ml Route: IV; Rate: bolus; Site: right forearm; vg1 20:37 Drug: morphine 2 mg Route: IVP; Site: right forearm; vg1 23:37 Drug: morphine 2 mg Route: IVP; Site: right forearm; vg1 06/24 03:35 Drug: morphine 2 mg Route: IVP; Site: right antecubital; fv 03:40 CANCELLED (Duplicate Order): morphine 2 mg IVP once; (PAIN>8) RASS on ADMN: Combtv4, fv Very Agttd3, Agttd2, Rstlss1, AlertClm0, Drwsy-1, LtSdtn-2, ModSdtn-3, DpSdtn-4, UnArsble-5 x2 Disposition: 07:04 Co-signature as Attending Physician, Richard Coronado MD. [email or web address] Disposition: 06/24/20 00:[address] [facility]. Diagnosis is Fracture of unspecified part of neck of right femur. - Reason for transfer: Higher level of care. - Accepting physician is DR Mercer. - Condition is Stable. - Problem is new. - Symptoms have improved. Signatures: Dispatcher [employer] EDMS Nina Gil RN RN lp1 Ranjeet Waller PA PA cp Irena Young RN RN fv Gerson Real, DRIVER MERCHANDISER DRIVER MERCHANDISER pm1 Ignacia Ritchie RN RN 1 Nia Peres RN RN 1 Richard Coronado MD MD 7 Corrections: (The following items were deleted from the chart) 02:04 00:07 06/24/2020 00:[address] [facility]. cp Diagnosis is Fracture of unspecified part of neck of right femur. Reason for transfer: Higher level of care. Accepting physician is Doctor. Condition is Stable. Problem is new. Symptoms have improved. cp 02:09 00:48 CORONAVIRUS+MR.LAB.BRZ ordered. EDMS EDMS 03:40 03:38 morphine 2 mg IVP once; (PAIN>8) RASS on ADMN: Combtv4, Very Agttd3, Agttd2, fv Rstlss1, AlertClm0, Drwsy-1, LtSdtn-2, ModSdtn-3, DpSdtn-4, UnArsble-5 x2 ordered. fv 03:40 02:04 06/24/2020 00:[address] [facility]. lp1 Diagnosis is Fracture of unspecified part of neck of right femur. Reason for transfer: Higher level of care. Accepting physician is DR Mercer. Condition is Stable. Problem is new. Symptoms have improved. cp
[2020-06-24 02:32] LABS: Urine Blood TRACE (NEG); Urine Glucose 2+ (NEG); Urine Protein NEGATIVE (NEG); Urine Specific Gravity 1.025 (1.005-1.030)
[2020-06-24 03:04] LABS: Urine Bacteria 20-50 /HPF (<20); Urine RBC <5 /HPF (NONE SEEN)
[2020-06-24] MEDS ORDERED: MORPHINE 2 MG/ML SYR ONE (03:42)
[2020-06-24 03:51] VITALS: TEMP 99.2
[2020-06-24 03:59] VITALS: BP 133/63; O2SAT 98
--- NOTE | 2020-06-24 09:24 | RAD REPORT ---
EXAM DESCRIPTION: RAD - Chest Single View - 06/23/2020 11:25 pm CLINICAL HISTORY: right hip fracture, fall, hip pain, preop chest for hip fracture COMPARISON: November 2019 TECHNIQUE: AP portable chest image was obtained 06/23/2020 11:25 pm . FINDINGS: Lung volumes are low. No focal lung parenchymal process. Interstitial pattern matches comp arison. Heart and vasculature are normal. No measurable pleural effusion and no pneumothorax. No acute bony abnormality seen. No acute aortic findings suspected. IMPRESSION: No acute cardiopulmonary process. No significant change from comparison study.
--- NOTE | 2020-06-25 11:08 | RAD REPORT ---
EXAM DESCRIPTION: CT - Pelvis Wo Cont - 06/24/2020 1:24 am CLINICAL HISTORY: Right hip pain TECHNIQUE: Contiguous axial images obtained through the pelvis without IV contrast. Sagittal and cor onal reformatted images were provided. This exam was performed according to our departmental dose-optimization program, which includes autom ated exposure control, adjustment of the mA and/or kV according to patient size and/or use of iterati ve reconstruction technique. COMPARISON: None available for comparison. FINDINGS: Bones: Osseous structures are osteopenic. Impacted mildly displaced right femoral neck fra cture. Left iliac bone graft donor site. Joints: No dislocation. Mild degenerative changes at the hip joints bilaterally. Prior bilateral post erior fusion and decompression at the lower lumbar spine. Bowel: No obstruction. No appreciable mucosal thickening. Appendix: Normal caliber appendix. No findings to suggest acute appendicitis. Urinary bladder: The urinary is distended. Reproductive: There has been a hysterectomy. No adnexal cysts or masses are identified. Lymph nodes: No pathologically enlarged lymph nodes. Peritoneum: No focal fluid collection. No free air. Vessels: Mild atherosclerotic disease. Abdominal wall: Small to moderate fat containing right inguinal hernia. IMPRESSION: Right femoral neck fracture. Electronically signed by: Alexandre Lubin MD 06/23/2020 10:32 PM PIERCE AND SHAVE PRESS OPERATOR Due to temporary technical issues with the PACS/Fluency reporting system, reports are being signed by the in house radiologists without review as a courtesy to insure prompt reporting. The interpreting radiologist is fully responsible for the content of the report.
--- NOTE | 2020-06-25 11:10 | RAD REPORT ---
EXAM DESCRIPTION: CT - Spine Lumbar Wo Con - 06/24/2020 1:24 am CLINICAL HISTORY: Fall TECHNIQUE: Contiguous axial CT images obtained through the lumbar spine without IV contrast. Coronal and sagittal reformatted images also provided. This exam was performed according to our departmental dose-optimization program, which includes automated exposure control, adjustment of the mA and/or kV according to patient size and/or use of iterative reconstruction technique. COMPARISON: None available for comparison FINDINGS: Vertebra: Osseous structures are osteopenic. Grade 2 anterolisthesis of L5 on S1. No acute fracture or subluxation.Disc spaces: Mild to moderate multilevel degenerative changes. Prior bilater al posterior fusion and decompression at L4-S1. No critical canal stenosis. Soft tissues: Unremarka bleOther: Left iliac bone graft donor site. IMPRESSION: No acute injury. Electronically signed by: Alexandre Lubin MD 06/23/2020 10:21 PM HAND GLUER AND SLICER Due to temporary technical issues with the PACS/Fluency reporting system, reports are being signed by the in house radiologist without review as a courtesy to ensure prompt reporting. The interpreting r adiologist is fully responsible for the content of the report.
== END 2020-06-24 03:40 | disposition short-term general hospital (02) ==
LOC: ER 17:35
DX: S72.001A Fracture of unspecified part of neck of right femur, initial encounter for closed fracture (principal); W19.XXXA Unspecified fall, initial encounter; Y93.89 Activity, other specified; Y92.009 Unspecified place in unspecified non-institutional (private) residence as the place of occurrence of the external cause; Z20.822 Contact with and (suspected) exposure to COVID-19; I10 Essential (primary) hypertension
CPT/HCPCS: 93005; 87088; 85025; 87086; 80048; 36415; 83735; 85610; 80076; 84484; 83880; 72131; 72192; 71045; 73502; 73562; 51702; 99285; U0003; J2270 ×3; J7050; 81003; 81015